=== PATIENT | female | born 1965 | race Caucasian/White ===

== ENCOUNTER 2017-12-31 19:17 | Emergency (ER) | payer OTHER ==
[2017-12-31] MEDS ORDERED: MORPHINE 4 MG/ML SYR ONE (19:58)
[2017-12-31] MEDS ORDERED: ONDANSETRON 4 MG (ODT) TAB ONE (19:58)
[2017-12-31 20:24] LABS: Hematocrit 40.2 % (36.0-45.0); MCV 88.9 fL (80-100); MPV 7.4 fL (7.6-11.3); RBC Red Blood Cell Count 4.53 M/uL (3.86-4.86)
[2017-12-31 20:37] LABS: Potassium 3.2 mEq/L (3.6-5.0)
--- NOTE | 2017-12-31 20:40 | RAD REPORT ---
EXAM DESCRIPTION: Lumbar Spine - Single View CLINICAL HISTORY: Radiculopathy COMPARISON: None. FINDINGS: Vertebral body heights appear maintained. No compression fracture noted. Facet arthrosis i s present at L4-5. Cholecystectomy clips seen. IMPRESSION: No acute findings seen.
--- NOTE | 2017-12-31 20:51 | RAD REPORT ---
EXAM DESCRIPTION: VAS - Extremity Venous Uni Ltd - 12/31/2017 8:43 pm CLINICAL HISTORY: Leg swelling and edema. COMPARISON: None. FINDINGS: Left lower extremity venous system was interrogated with Doppler technique. Normal flow, c ompressibility and augmentation was noted. There is no DVT present. IMPRESSION: No evidence of left lower extremity deep venous thrombosis.
--- NOTE | 2017-12-31 20:58 | ER ---
Nurse's Notes [facility] Name: Shelli Fonseca Age: 52 yrs Sex: Female : 1965 Arrival Date: 12/31/2017 Time: 19:19 Bed 4 Private MD: Oscar Gandara R Diagnosis: Fibromyalgia Presentation: 12/31 19:31 Presenting complaint: Patient states: I have been having left leg pain and swelling for la1 2-3 days and lower back pain on the right for the last 3 hours. Pt states "it feels more muscular but I am on a dilaudid pain pump and it's not even touching this pain". Transition of care: patient was not received from another setting of care. Onset of symptoms was December 31, 2017. Care prior to arrival: None. 19:31 Method Of Arrival: Ambulatory la1 19:31 Acuity: CLEVE 3 la1 Historical: - Allergies: 19:33 Codeine; la1 19:33 Sulfa (Sulfonamide Antibiotics); la1 - PMHx: 19:33 Hypothyroidism; Fibromyalgia; Hypertension; ulcertive colitis; RA; la1 - Immunization history:: Adult Immunizations up to date. - Social history:: Smoking status: Patient uses tobacco products, smokes one pack cigarettes per day. - Family history:: not pertinent. Screenin:07 Abuse screen: Denies threats or abuse. Denies injuries from another. Nutritional bp screening: No deficits noted. Tuberculosis screening: No symptoms or risk factors identified. Fall Risk None identified. Assessment: 20:02 General: Appears in no apparent distress. uncomfortable, Behavior is calm, cooperative, bp appropriate for age. Pain: Complains of pain in left leg. Neuro: Level of Consciousness is awake, alert, obeys commands, Oriented to person, place, time, situation, Appropriate for age. Cardiovascular: No deficits noted. Respiratory: Airway is patent Respiratory effort is even, unlabored, Respiratory pattern is regular, symmetrical. GI: No signs and/or symptoms were reported involving the gastrointestinal system. : No deficits noted. EENT: No deficits noted. Derm: No deficits noted. Musculoskeletal: Circulation, motion, and sensation intact. Range of motion: intact in all extremities. Vital Signs: 19:33 BP 165 / 90; Pulse 98; Resp 16; Temp 97.4; Pulse Ox 100% on R/A; Weight 86.18 kg; la1 Height 5 ft. 6 in. (167.64 cm); 20:15 BP 133 / 92; Pulse 78; Resp 18; Pulse Ox 98% on R/A; lp1 19:33 Body Mass Index 30.67 (86.18 kg, 167.64 cm) me1 ED Course: 19:19 Patient arrived in ED. am2 19:19 Oscar Gandara MD is Private Physician. am2 19:32 Triage completed. la1 19:33 Arm band placed on left wrist. la1 19:46 Radha Castano MD is Attending Physician. ma2 20:07 Patient has correct armband on for positive identification. Placed in gown. Bed in low bp position. Call light in reach. Side rails up X2. Adult w/ patient. 20:19 Patient moved to radiology via wheelchair. 1 20:21 Elen Dunaway, RN is Primary Nurse. lp1 20:21 X-ray completed. Patient tolerated procedure well. 1 20:21 Initial lab(s) drawn, by me, sent to lab. lp1 20:22 Patient taken to ultrasound. mh1 20:22 Lumbar Spine (1 view) XRAY In Process Unspecified. EDMS 20:41 Patient moved back from ultrasound. kl2 20:43 US Extremity Venous Uni Ltd In Process Unspecified. EDMS 21:04 No provider procedures requiring assistance completed. Patient did not have IV access lp1 during this emergency room visit. Administered Medications: 20:01 Drug: morphine 4 mg Route: IM; Site: right deltoid; bp 20:02 Drug: Zofran 4 mg Route: PO; bp Outcome: 20:57 Discharge ordered by . ma2 21:05 Discharged to home with family. lp1 21:05 Condition: good 21:05 Discharge instructions given to patient, Instructed on discharge instructions, follow up and referral plans. medication usage, Demonstrated understanding of instructions, follow-up care, medications, Prescriptions given X 1. 21:06 Patient left the ED. lp1 Signatures: Dispatcher [employer] EDMS Sabina Ferrari 1 Elen Dunaway, RN CHATO 1 Tato Neely RN RN me1 Alicia Manzanares 2 Lucas Brizuela RN RN Radha Castano MD MD md2 Lali, Samantha kl2
--- NOTE | 2017-12-31 20:58 | EDPHYS ---
Physician Documentation [facility] Name: Shelli Fonseca Age: 52 yrs Sex: Female : 1965 Arrival Date: 12/31/2017 Time: 19:19 Bed 4 Private MD: Oscar Gandara R ED Physician Radha Castano HPI: 12/31 20:21 This 52 yrs old Female presents to ER via Ambulatory with complaints of Leg ma2 Swelling, Back Pain. 20:21 The patient presents with pain that is chronic. The symptoms are located in the right ma2 mid back. Onset: The symptoms/episode began/occurred gradually, 2 day(s) ago. Associated signs and symptoms: Pertinent positives: left leg swelling. Severity of symptoms: At their worst the symptoms were moderate. The patient has experienced a previous episode. hx of left leg DVT 5 yrs ago off blood thinners now with 2 days left leg swelling and pain . Historical: - Allergies: 19:33 Codeine; la1 19:33 Sulfa (Sulfonamide Antibiotics); la1 - PMHx: 19:33 Hypothyroidism; Fibromyalgia; Hypertension; ulcertive colitis; RA; la1 - Immunization history:: Adult Immunizations up to date. - Social history:: Smoking status: Patient uses tobacco products, smokes one pack cigarettes per day. - Family history:: not pertinent. ROS: 20:21 Constitutional: Negative for fever, chills, and weight loss, Eyes: Negative for injury, ma2 pain, redness, and discharge, ENT: Negative for injury, pain, and discharge, Neck: Negative for injury, pain, and swelling, Cardiovascular: Negative for chest pain, palpitations, and edema, Respiratory: Negative for shortness of breath, cough, wheezing, and pleuritic chest pain, Abdomen/GI: Negative for abdominal pain, nausea, diarrhea, and constipation, Back: Negative for injury and pain, : Negative for injury, bleeding, discharge, and swelling, MS/Extremity: Negative for injury and deformity. 20:21 MS/extremity: Positive for swelling. 20:21 All other systems are negative. Exam: 20:21 Constitutional: This is a well developed, well nourished patient who is awake, alert, ma2 and in no acute distress. Head/Face: Normocephalic, atraumatic. Eyes: Pupils equal round and reactive to light, extra-ocular motions intact. Lids and lashes normal. Conjunctiva and sclera are non-icteric and not injected. Cornea within normal limits. Periorbital areas with no swelling, redness, or edema. Chest/axilla: Normal chest wall appearance and motion. Nontender with no deformity. No lesions are appreciated. Cardiovascular: Regular rate and rhythm with a normal S1 and S2. No gallops, murmurs, or rubs. Normal PMI, no JVD. No pulse deficits. Respiratory: Lungs have equal breath sounds bilaterally, clear to auscultation and percussion. No rales, rhonchi or wheezes noted. No increased work of breathing, no retractions or nasal flaring. Abdomen/GI: Soft, non-tender, with normal bowel sounds. No distension or tympany. No guarding or rebound. No evidence of tenderness throughout. Back: No spinal tenderness. No costovertebral tenderness. Full range of motion. MS/ Extremity: Pulses equal, no cyanosis. Neurovascular intact. Full, normal range of motion. Neuro: Awake and alert, GCS 15, oriented to person, place, time, and situation. Cranial nerves II-XII grossly intact. Motor strength 5/5 in all extremities. Sensory grossly intact. Cerebellar exam normal. Normal gait. Vital Signs: 19:33 BP 165 / 90; Pulse 98; Resp 16; Temp 97.4; Pulse Ox 100% on R/A; Weight 86.18 kg; la1 Height 5 ft. 6 in. (167.64 cm); 20:15 BP 133 / 92; Pulse 78; Resp 18; Pulse Ox 98% on R/A; lp1 19:33 Body Mass Index 30.67 (86.18 kg, 167.64 cm) la1 MDM: 19:47 Patient medically screened. ma2 20:21 Differential diagnosis: spinal injury, sprain, left leg DVT. ma2 20:56 Data reviewed: vital signs, nurses notes, EMS record, radiologic studies. Response to ma2 treatment: the patient's symptoms have markedly improved after treatment. 12/31 20:01 Order name: CBC w/o diff; Complete Time: 20:44 ma2 12/31 20:01 Order name: BMP; Complete Time: 20:44 ma2 12/31 20:01 Order name: Lumbar Spine (1 view) XRAY; Complete Time: 20:44 ma2 12/31 20:01 Order name: US Extremity Venous Uni Ltd ma2 Administered Medications: 20:01 Drug: morphine 4 mg Route: IM; Site: right deltoid; bp 20:02 Drug: Zofran 4 mg Route: PO; bp Disposition: 12/31/17 20:57 Discharged to Home. Impression: Fibromyalgia. - Condition is Stable. - Prescriptions for Valium 5 mg Oral Tablet - take 1 tablet by ORAL route every 8 hours As needed; 20 tablet. - Medication Reconciliation Form, Thank You Letter, Antibiotic Education, Prescription Opioid Use form. - Follow up: Private Physician; When: Tomorrow; Reason: Continuance of care. - Problem is new. - Symptoms are resolved. - Notes: you will need a repeated ultrasound in 1 week, follow up with your doctor Signatures: Dispatcher [employer] Elen Schulte RN RN lp1 Tato Neely RN RN la1 Lucas Brizuela RN RN Radha Goodman MD MD ma2
== END 2017-12-31 21:06 | disposition home or self-care (01) ==
LOC: ER 19:17
DX: M79.7 Fibromyalgia (principal); Z88.6 Allergy status to analgesic agent; Z88.2 Allergy status to sulfonamides
CPT/HCPCS: 36415; 72020; 80048; 85027; 93971; 96372; 99284

== ENCOUNTER 2020-03-03 01:21 | Emergency (ER) | payer OTHER ==
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
--- OUTSIDE RECORDS SUMMARY | 2020-03-03 01:23 | XMS REPORT | Continuity of Care Document ---
:1965 Author Organization [facility] t Address [address] [place] [address] Care Team Providers Name Role Phone Lizbeth Barnett Attending Clinician Problems This patient has no known problems. Allergies, Adverse Reactions, Alerts This patient has no known allergies or adverse reactions. Medications This patient has no known medications. Procedures This patient has no known procedures. Encounters Start End Encounter Admission Attending Care Care Encounter Source Date/Time Date/Time Type Type Clinicians Facility Department ID 2020-02-23 2020-02-23 Emergency Jax Dsouza [facility] [id number] 21:52:04 23:38:00 Lizbeth [place] [id number] [place] [id number] [place] [id number] Results This patient has no known results.
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
[2020-03-03] MEDS ORDERED: TRAMADOL HCL 50 MG TAB ONE (03:16)
[2020-03-03 03:31] VITALS: BP 127/78; TEMP 97.9; O2SAT 98
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
== END 2020-03-03 03:19 | disposition home or self-care (01) ==
LOC: ER 01:21
DX: S20.211A Contusion of right front wall of thorax, initial encounter (principal); R07.1 Chest pain on breathing; V89.2XXA Person injured in unspecified motor-vehicle accident, traffic, initial encounter; I10 Essential (primary) hypertension; E03.9 Hypothyroidism, unspecified; Z88.2 Allergy status to sulfonamides; Z88.5 Allergy status to narcotic agent; F17.210 Nicotine dependence, cigarettes, uncomplicated
CPT/HCPCS: 71045; 99284

== ENCOUNTER 2021-09-28 13:28 | Inpatient (IN) | payer OTHER ==
--- OUTSIDE RECORDS SUMMARY | 2021-09-28 13:32 | XMS REPORT | Continuity of Care Document ---
:1965 Author Organization [facility] t Address On license of [facility] [address] [place] [address] Care Team Providers Name Role Phone Travis ORITZ Primary Care Physician Unavailable Lab, Fam Pob I Attending Clinician Unavailable Ebrahim ADMINISTRATIVE DIRECTOR Attending Clinician EBRAHIM Attending Clinician Unavailable Sukhdeep Lozano Attending Clinician SUKHDEEP JUAN Attending Clinician Unavailable Doctor Unassigned, Name Attending Clinician Unavailable Poncho Espinosa MD Attending Clinician PONCHO ESPINOSA Attending Clinician Unavailable PONCHO ESPIONSA Attending Clinician Unavailable Ralph Valenzuela DO Attending Clinician Provider, Urgent Care Attending Clinician Unavailable Radha LARSON Attending Clinician RADHA Attending Clinician Unavailable Hardeep COSTELLO S Attending Clinician Kimberly MEIER Attending Clinician Unavailable Sosa MARTÍNEZ Attending Clinician Unavailable [facility] Attending Clinician Unavailable Yolis Chandler Attending Clinician Yolis LOPEZ Attending Clinician Unavailable NATHEN MATHEW Attending Clinician Unavailable Nathen Barnett Attending Clinician NATHEN MATEHW Admitting Clinician Unavailable Payers Payer Name Policy Type Policy Number Effective Date Expiration Date Kimberly gillette MEDICARE PART A [id number] 2006 \T\ B 00:00:00 Problems Condition Condition Condition Status Onset Resolution Last Treating Co mments Source Name Details Category Date Date Treatment Clinician Date No known No known Disease Unive rs active active ity of problems problems [facility] Allergies, Adverse Reactions, Alerts Allergy Allergy Status Severity Reaction(s) Onset Inactive Treating Comm ents Source Name Type Date Date Clinician Latex Drug Active Hives Univers Allergy -28 ity of 00:00: [place] 00 [facility] Branch LATEX DRUG Active Hives Univers INGREDI -28 ity of 00:00: [place] [facility] Codeine Drug Active Nausea Stomach Univers Allergy and/or 5-05 pain ity of Vomiting 00:00: [place] 00 Medical Branch CODEINE DRUG Active Other-Cmnt Unive rs INGREDI 5-05 ity of 00:00: [place] 00 Medical Branch SULFA Drug Active Other-Cmnt Univer s (SULFONA Class 5-05 ity of MIDE 00:00: [place] ANTIBIOT 00 Medical ICS) Branch Codeine Propensi Active Other - See 0 Stomach U nivers ty to comments 5-05 pain ity of adverse 00:00: [place] reaction 00 Medical s Branch Sulfa Propensi Active Rash 0 Stomach Univers (Sulfona ty to 5-05 pain ity of mide adverse 00:00: [place] Antibiot reaction 00 Medica l ics) s Branch Celecoxi Drug Active Rash 0 Univers b Allergy 1-16 ity of 00:00: [place] 00 Medical Branch CELECOXI DRUG Active Rash 2013-0 Univers B INGREDI 1-16 ity of 00:00: [place] 00 Medical Branch Social History Social Habit Start Date Stop Date Quantity Comments Source Exposure to Yes [facility] SARS-CoV-2 (event) Medica l Branch Tobacco use and 2021-01-21 2021-01-21 Never used [facility] exposure 00:00:00 00:00:00 Medical Branch Sex [birth year] [facility] y [facility] 00:00:00 00:00:00 Medical Branch Smoking Status Start Date Stop Date Source Unknown if ever smoked [facility] Current every day smoker 2021-01-21 00:00:00 [facility] Medications Ordered Filled Start Stop Current Ordering Indication Dosage Frequency Signature Comments Components Source Medication Medication Date Date Medication? Clinician (SIG) Name Name oxyCODONE Yes Take by Univ ers 15 mg TbOr 5-04 mouth. ity of 20:08: [place] [address] Medical Branch oxyCODONE Yes Take by Univ ers 15 mg TbOr 5-04 mouth. ity of 20:08: [place] [address] Medical Branch oxyCODONE Yes Take by Univ ers 15 mg TbOr 5-04 mouth. ity of 20:08: [place] [address] Medical Branch oxyCODONE Yes Take by Univ ers 15 mg TbOr 5-04 mouth. ity of 20:08: [address] Branch oxyCODONE Yes Take by Univ ers 15 mg TbOr 5-04 mouth. ity of 20:08: [address] Branch oxyCODONE Yes Take by Univ ers 15 mg TbOr 5-04 mouth. ity of 20:08: [address] Branch oxyCODONE Yes Take by Univ ers 15 mg TbOr 5-04 mouth. ity of 20:08: [address] Branch oxyCODONE Yes Take by Univ ers 15 mg TbOr 5-04 mouth. ity of 20:08: [address] oxyCODONE Yes Take by Univ ers 15 mg TbOr 5-04 mouth. ity of 20:08: [address] hydromorpho Yes Pain pump U nivers ne HCl 5-04 ity of (DILAUDID 19:45: [place] [facility]) [address] [place] [address] Branch hydromorpho Yes Pain pump U nivers ne HCl 5-04 ity of (DILAUDID 19:45: [facility]) [address] [place] [address] hydromorpho Yes Pain pump U nivers ne HCl 5-04 ity of (DILAUDID 19:45: [facility]) [address] [place] [address] hydromorpho Yes Pain pump U nivers ne HCl 5-04 ity of (DILAUDID 19:45: [place] [facility]) 11 Medical Branch hydromorpho Yes Pain pump U nivers ne HCl 5-04 ity of (DILAUDID 19:45: [place] [facility]) 11 Medical Branch hydromorpho Yes Pain pump U nivers ne HCl 5-04 ity of (DILAUDID 19:45: [place] [facility]) 11 Medical Branch hydromorpho Yes Pain pump U nivers ne HCl 5-04 ity of (DILAUDID 19:45: [facility]) 11 Medical Branch hydromorpho Yes Pain pump U nivers ne HCl 5-04 ity of (DILAUDID 19:45: [place] [facility]) 11 Medical Branch hydromorpho Yes Pain pump U nivers ne HCl 5-04 ity of (DILAUDID 19:45: [facility]) 11 Medical Branch azithromyci Yes [id number] 250mg Take 1 Univers n 250 mg 1-24 tablet by ity of tablet 00:00: mouth [place] 00 daily. Medical Take 500 Branch mg day 1, then 250 mg days 2 to 5. benzonatate Yes [id number] 100mg Take 1 Univers (TESSALON 1-24 capsule by ity of MARYSE) 100 00:00: mouth 3 [place] mg capsule 00 (three) Medica l times Branch daily as needed for Cough. albuterol Yes [id number] 2{puff} Inhale 2 Univers 90 1-24 Puffs ity of mcg/actuati 00:00: every 6 [place] as on inhaler 00 (six) Medical hours as Branch needed for Wheezing, Shortness of Breath or Chest tightness. diphenoxyla Yes [id number] 1{tbl} Take 1 Univers te-atropine 1-24 tablet by ity of 2.5-0.025 00:00: mouth [place] mg tablet 00 every 6 Medical (six) Branch hours as needed for Other (diarrhea) . azithromyci Yes [id number] 250mg Take 1 Univers n 250 mg 1-24 tablet by ity of tablet 00:00: mouth [place] 00 daily. Medical Take 500 Branch mg day 1, then 250 mg days 2 to 5. benzonatate Yes [id number] 100mg Take 1 Univers (TESSALON 1-24 capsule by ity of PERLES) 100 00:00: mouth 3 [place] mg capsule 00 (three) Medica l times Branch daily as needed for Cough. albuterol Yes [id number] 2{puff} Inhale 2 Univers 90 1-24 Puffs ity of mcg/actuati 00:00: every 6 [place] on inhaler 00 (six) Medical hours as Branch needed for Wheezing, Shortness of Breath or Chest tightness. diphenoxyla Yes [id number] 1{tbl} Take 1 Univers te-atropine 1-24 tablet by ity of 2.5-0.025 00:00: mouth [place] mg tablet 00 every 6 Medical (six) Branch hours as needed for Other (diarrhea) . azithromyci Yes [id number] 250mg Take 1 Univers n 250 mg 1-24 tablet by ity of tablet 00:00: mouth [place] 00 daily. Medical Take 500 Branch mg day 1, then 250 mg days 2 to 5. benzonatate Yes [id number] 100mg Take 1 Univers (TESSALON 1-24 capsule by ity of PERLPassbox) 100 00:00: mouth 3 [place] mg capsule 00 (three) Medica l times Branch daily as needed for Cough. albuterol Yes [id number] 2{puff} Inhale 2 Univers 90 1-24 Puffs ity of mcg/actuati 00:00: every 6 [place] on inhaler 00 (six) Medical hours as Branch needed for Wheezing, Shortness of Breath or Chest tightness. diphenoxyla Yes [id number] 1{tbl} Take 1 Univers te-atropine 1-24 tablet by ity of 2.5-0.025 00:00: mouth [place] mg tablet 00 every 6 Medical (six) Branch hours as needed for Other (diarrhea) . azithromyci 0 Yes [id number] 250mg Take 1 Univers n 250 mg 1-24 tablet by ity of tablet 00:00: mouth [place] 00 daily. Medical Take 500 Branch mg day 1, then 250 mg days 2 to 5. benzonatate 0 Yes [id number] 100mg Take 1 Univers (TESSALON 1-24 capsule by ity of PERLES) 100 00:00: mouth 3 [place] mg capsule 00 (three) Medica l times Branch daily as needed for Cough. albuterol Yes [id number] 2{puff} Inhale 2 Univers 90 1-24 Puffs ity of mcg/actuati 00:00: every 6 [place] on inhaler 00 (six) Medical hours as Branch needed for Wheezing, Shortness of Breath or Chest tightness. diphenoxyla Yes [id number] 1{tbl} Take 1 Univers te-atropine 1-24 tablet by ity of 2.5-0.025 00:00: mouth [place] mg tablet 00 every 6 Medical (six) Branch hours as needed for Other (diarrhea) . azithromyci Yes [id number] 250mg Take 1 Univers n 250 mg 1-24 tablet by ity of tablet 00:00: mouth [place] 00 daily. Medical Take 500 Branch mg day 1, then 250 mg days 2 to 5. benzonatate Yes [id number] 100mg Take 1 Univers (TESSALON 1-24 capsule by ity of PERLPassbox) 100 00:00: mouth 3 [place] mg capsule 00 (three) Medica l times Branch daily as needed for Cough. albuterol Yes [id number] 2{puff} Inhale 2 Univers 90 1-24 Puffs ity of mcg/actuati 00:00: every 6 [place] on inhaler 00 (six) Medical hours as Branch needed for Wheezing, Shortness of Breath or Chest tightness. diphenoxyla Yes [id number] 1{tbl} Take 1 Univers te-atropine 1-24 tablet by ity of 2.5-0.025 00:00: mouth [place] mg tablet 00 every 6 Medical (six) Branch hours as needed for Other (diarrhea) . azithromyci 0 Yes [id number] 250mg Take 1 Univers n 250 mg 1-24 tablet by ity of tablet 00:00: mouth [place] 00 daily. Medical Take 500 Branch mg day 1, then 250 mg days 2 to 5. benzonatate 0 Yes [id number] 100mg Take 1 Univers (TESSALON 1-24 capsule by ity of PERLES) 100 00:00: mouth 3 [place] mg capsule 00 (three) Medica l times Branch daily as needed for Cough. albuterol Yes [id number] 2{puff} Inhale 2 Univers 90 1-24 Puffs ity of mcg/actuati 00:00: every 6 [place] on inhaler 00 (six) Medical hours as Branch needed for Wheezing, Shortness of Breath or Chest tightness. diphenoxyla Yes [id number] 1{tbl} Take 1 Univers te-atropine 1-24 tablet by ity of 2.5-0.025 00:00: mouth [place] mg tablet 00 every 6 Medical (six) Branch hours as needed for Other (diarrhea) . azithromyci Yes [id number] 250mg Take 1 Univers n 250 mg 1-24 tablet by ity of tablet 00:00: mouth [place] 00 daily. Medical Take 500 Branch mg day 1, then 250 mg days 2 to 5. benzonatate Yes [id number] 100mg Take 1 Univers (TESSALON 1-24 capsule by ity of PERLES) 100 00:00: mouth 3 [place] mg capsule 00 (three) Medica l times Branch daily as needed for Cough. albuterol Yes [id number] 2{puff} Inhale 2 Univers 90 1-24 Puffs ity of mcg/actuati 00:00: every 6 [place] on inhaler 00 (six) Medical hours as Branch needed for Wheezing, Shortness of Breath or Chest tightness. diphenoxyla Yes [id number] 1{tbl} Take 1 Univers te-atropine 1-24 tablet by ity of 2.5-0.025 00:00: mouth [place] mg tablet 00 every 6 Medical (six) Branch hours as needed for Other (diarrhea) . azithromyci 0 Yes [id number] 250mg Take 1 Univers n 250 mg 1-24 tablet by ity of tablet 00:00: mouth [place] 00 daily. Medical Take 500 Branch mg day 1, then 250 mg days 2 to 5. benzonatate 0 Yes [id number] 100mg Take 1 Univers (TESSALON 1-24 capsule by ity of PERLES) 100 00:00: mouth 3 [place] mg capsule 00 (three) Medica l times Branch daily as needed for Cough. albuterol Yes [id number] 2{puff} Inhale 2 Univers 90 1-24 Puffs ity of mcg/actuati 00:00: every 6 [place] as on inhaler 00 (six) Medical hours as Branch needed for Wheezing, Shortness of Breath or Chest tightness. diphenoxyla Yes [id number] 1{tbl} Take 1 Univers te-atropine 1-24 tablet by ity of 2.5-0.025 00:00: mouth [place] mg tablet 00 every 6 Medical (six) Branch hours as needed for Other (diarrhea) . azithromyci Yes [id number] 250mg Take 1 Univers n 250 mg 1-24 tablet by ity of tablet 00:00: mouth [place] 00 daily. Medical Take 500 Branch mg day 1, then 250 mg days 2 to 5. benzonatate Yes [id number] 100mg Take 1 Univers (TESSALON 1-24 capsule by ity of PERLES) 100 00:00: mouth 3 [place] mg capsule 00 (three) Medica l times Branch daily as needed for Cough. albuterol Yes [id number] 2{puff} Inhale 2 Univers 90 1-24 Puffs ity of mcg/actuati 00:00: every 6 [place] as on inhaler 00 (six) Medical hours as Branch needed for Wheezing, Shortness of Breath or Chest tightness. diphenoxyla Yes [id number] 1{tbl} Take 1 Univers te-atropine 1-24 tablet by ity of 2.5-0.025 00:00: mouth [place] mg tablet 00 every 6 Medical (six) Branch hours as needed for Other (diarrhea) . azithromyci Yes [id number] 250mg Take 1 Univers n 250 mg 1-24 tablet by ity of tablet 00:00: mouth [place] 00 daily. Medical Take 500 Branch mg day 1, then 250 mg days 2 to 5. benzonatate Yes [id number] 100mg Take 1 Univers (TESSALON 1-24 capsule by ity of PERLES) 100 00:00: mouth 3 [place] mg capsule 00 (three) Medica l times Branch daily as needed for Cough. albuterol Yes [id number] 2{puff} Inhale 2 Univers 90 1-24 Puffs ity of mcg/actuati 00:00: every 6 [place] on inhaler 00 (six) Medical hours as Branch needed for Wheezing, Shortness of Breath or Chest tightness. diphenoxyla Yes [id number] 1{tbl} Take 1 Univers te-atropine 1-24 tablet by ity of 2.5-0.025 00:00: mouth [place] mg tablet 00 every 6 Medical (six) Branch hours as needed for Other (diarrhea) . azithromyci Yes [id number] 250mg Take 1 Univers n 250 mg 1-24 tablet by ity of tablet 00:00: mouth [place] 00 daily. Medical Take 500 Branch mg day 1, then 250 mg days 2 to 5. benzonatate Yes [id number] 100mg Take 1 Univers (TESSALON 1-24 capsule by ity of MARYSE) 100 00:00: mouth 3 [place] mg capsule 00 (three) Medica l times Branch daily as needed for Cough. albuterol Yes [id number] 2{puff} Inhale 2 Univers 90 1-24 Puffs ity of mcg/actuati 00:00: every 6 [place] on inhaler 00 (six) Medical hours as Branch needed for Wheezing, Shortness of Breath or Chest tightness. diphenoxyla Yes [id number] 1{tbl} Take 1 Univers te-atropine 1-24 tablet by ity of 2.5-0.025 00:00: mouth [place] mg tablet 00 every 6 Medical (six) Branch hours as needed for Other (diarrhea) . losartan 50 0 Yes 100mg Take 100 U nivers mg tablet 6-26 mg by ity of 14:52: mouth [place] 41 daily. Medical Branch losartan 50 2019-0 Yes 100mg Take 100 U nivers mg tablet 6-26 mg by ity of 14:52: mouth [place] 41 daily. Medical Branch losartan 50 2019-0 Yes 100mg Take 100 U nivers mg tablet 6-26 mg by ity of 14:52: mouth [place] 41 daily. Medical Branch losartan 50 2019-0 Yes 100mg Take 100 U nivers mg tablet 6-26 mg by ity of 14:52: mouth [place] 41 daily. Medical Branch losartan 50 2019-0 Yes 100mg Take 100 U nivers mg tablet 6-26 mg by ity of 14:52: mouth [place] 41 daily. Medical Branch losartan 50 2020-0 Yes 100mg Take 100 U nivers mg tablet 6-26 mg by ity of 14:52: mouth [place] 41 daily. Medical Branch losartan 50 2020-0 Yes 100mg Take 100 U nivers mg tablet 6-26 mg by ity of 14:52: mouth [place] 41 daily. Medical Branch losartan 50 2020-0 Yes 100mg Take 100 U nivers mg tablet 6-26 mg by ity of 14:52: mouth [place] 41 daily. Medical Branch losartan 50 2020-0 Yes 100mg Take 100 U nivers mg tablet 6-26 mg by ity of 14:52: mouth [place] 41 daily. Medical Branch losartan 50 2020-0 Yes 100mg Take 100 U nivers mg tablet 6-26 mg by ity of 14:52: mouth [place] 41 daily. Medical Branch losartan 50 2020-0 Yes 100mg Take 100 U nivers mg tablet 6-26 mg by ity of 14:52: mouth [place] 41 daily. Medical Branch losartan 50 2020-0 Yes 100mg Take 100 U nivers mg tablet 6-26 mg by ity of 14:52: mouth [place] 41 daily. Medical Branch losartan 50 2020-0 Yes 100mg Take 100 U nivers mg tablet 6-26 mg by ity of 14:52: mouth [place] 41 daily. Medical Branch losartan 50 2020-0 Yes 100mg Take 100 U nivers mg tablet 6-26 mg by ity of 14:52: mouth [place] 41 daily. Medical Branch methylPREDN 2020-0 Yes [id number] 84mg Take 21 Univers ISolone 6-26 tablets by ity of (MEDROL, 00:00: mouth [place] JOHNNA,) 4 mg 00 SEE-INSTRU Med ical tablets CTIONS. Branch follow package directions methylPREDN 2020-0 Yes [id number] 84mg Take 21 Univers ISolone 6-26 tablets by ity of (MEDROL, 00:00: mouth [place] JOHNNA,) 4 mg 00 SEE-INSTRU Med ical tablets CTIONS. Branch follow package directions methylPREDN 2020-0 Yes [id number] 84mg Take 21 Univers ISolone 6-26 tablets by ity of (MEDROL, 00:00: mouth [place] JOHNNA,) 4 mg 00 SEE-INSTRU Med ical tablets CTIONS. Branch follow package directions methylPREDN 2020-0 Yes [id number] 84mg Take 21 Univers ISolone 6-26 tablets by ity of (MEDROL, 00:00: mouth [place] JOHNNA,) 4 mg 00 SEE-INSTRU Med ical tablets CTIONS. Branch follow package directions methylPREDN 2020-0 Yes [id number] 84mg Take 21 Univers ISolone 6-26 tablets by ity of (MEDROL, 00:00: mouth [place] JOHNNA,) 4 mg 00 SEE-INSTRU Med ical tablets CTIONS. Branch follow package directions methylPREDN 2020-0 Yes [id number] 84mg Take 21 Univers ISolone 6-26 tablets by ity of (MEDROL, 00:00: mouth [place] JOHNNA,) 4 mg 00 SEE-INSTRU Med ical tablets CTIONS. Branch follow package directions methylPREDN 2020-0 Yes [id number] 84mg Take 21 Univers ISolone 6-26 tablets by ity of (MEDROL, 00:00: mouth [place] JOHNNA,) 4 mg 00 SEE-INSTRU Med ical tablets CTIONS. Branch follow package directions methylPREDN 2020-0 Yes [id number] 84mg Take 21 Univers ISolone 6-26 tablets by ity of (MEDROL, 00:00: mouth [place] JOHNNA,) 4 mg 00 SEE-INSTRU Med ical tablets CTIONS. Branch follow package directions methylPREDN 2020-0 Yes [id number] 84mg Take 21 Univers ISolone 6-26 tablets by ity of (MEDROL, 00:00: mouth [place] JOHNNA,) 4 mg 00 SEE-INSTRU Med ical tablets CTIONS. Branch follow package directions methylPREDN 2020-0 Yes [id number] 84mg Take 21 Univers ISolone 6-26 tablets by ity of (MEDROL, 00:00: mouth [place] JOHNNA,) 4 mg 00 SEE-INSTRU Med ical tablets CTIONS. Branch follow package directions methylPREDN 2020-0 Yes [id number] 84mg Take 21 Univers ISolone 6-26 tablets by ity of (MEDROL, 00:00: mouth [place] JOHNNA,) 4 mg 00 SEE-INSTRU Med ical tablets CTIONS. Branch follow package directions methylPREDN 2020-0 Yes [id number] 84mg Take 21 Univers ISolone 6-26 tablets by ity of (MEDROL, 00:00: mouth [place] JOHNNA,) 4 mg 00 SEE-INSTRU Med ical tablets CTIONS. Branch follow package directions methylPREDN 2020-0 Yes [id number] 84mg Take 21 Univers ISolone 6-26 tablets by ity of (MEDROL, 00:00: mouth [place] JOHNNA,) 4 mg 00 SEE-INSTRU Med ical tablets CTIONS. Branch follow package directions methylPREDN 2020-0 Yes [id number] 84mg Take 21 Univers ISolone 6-26 tablets by ity of (MEDROL, 00:00: mouth [place] JOHNNA,) 4 mg 00 SEE-INSTRU Med ical tablets CTIONS. Branch follow package directions tiZANidine 2020-0 Yes 4mg Take 4 mg Un shira 4 mg tablet 6-19 by mouth 3 it y of 15:17: (three) [place] [address] times Medical daily. Branch topiramate 2020-0 Yes 200mg Take 200 Un shira (TOPAMAX) 6-19 mg by ity of 200 mg 15:17: mouth 2 [place] tablet 03 (two) Medical times Branch daily. oxyCODONE 2020-0 Yes Take by Univ ers 15 mg TbOr 6-19 mouth. ity of 15:17: [place] [address] Medical Branch SERTraline 2020-0 Yes 100mg Take 100 Un shira 100 mg 6-19 mg by ity of tablet 15:17: mouth 2 [place] 03 (two) Medical times Branch daily. Levothyroxi 2020-0 Yes Take by Un shira ne 125 mcg 6-19 mouth. ity of capsule 15:17: [place] [address] Medical Branch gabapentin 2020-0 Yes 800mg Take 800 Un shira 800 mg 6-19 mg by ity of tablet 15:17: mouth 3 [place] (three) Medical times Branch daily. tiZANidine 2020-0 Yes 4mg Take 4 mg Un shira 4 mg tablet 6-19 by mouth 3 it y of 15:17: (three) [place] [address] times Medical daily. Branch topiramate 2020-0 Yes 200mg Take 200 Un shira (TOPAMAX) 6-19 mg by ity of 200 mg 15:17: mouth 2 [place] tablet 03 (two) Medical times Branch daily. oxyCODONE 2020-0 Yes Take by Univ ers 15 mg TbOr 6-19 mouth. ity of 15:17: [place] [address] Medical Branch SERTraline 2020-0 Yes 100mg Take 100 Un shira 100 mg 6-19 mg by ity of tablet 15:17: mouth 2 [place] 03 (two) Medical times Branch daily. Levothyroxi 2020-0 Yes Take by Un shira ne 125 mcg 6-19 mouth. ity of capsule 15:17: [place] [address] Medical Branch gabapentin 2020-0 Yes 800mg Take 800 Un shira 800 mg 6-19 mg by ity of tablet 15:17: mouth 3 [place] 03 (three) Medical times Branch daily. tiZANidine 2020-0 Yes 4mg Take 4 mg Un shira 4 mg tablet 6-19 by mouth 3 it y of 15:17: (three) [place] [address] times Medical daily. Branch topiramate 2020-0 Yes 200mg Take 200 Un shira (TOPAMAX) 6-19 mg by ity of 200 mg 15:17: mouth 2 [place] tablet 03 (two) Medical times Branch daily. oxyCODONE 2020-0 Yes Take by Univ ers 15 mg TbOr 6-19 mouth. ity of 15:17: [place] [address] Medical Branch SERTraline 2020-0 Yes 100mg Take 100 Un shira 100 mg 6-19 mg by ity of tablet 15:17: mouth 2 [place] [address] (two) Medical times Branch daily. Levothyroxi 2020-0 Yes Take by Un shira ne 125 mcg 6-19 mouth. ity of capsule 15:17: [place] [address] Medical Branch gabapentin 2020-0 Yes 800mg Take 800 Un shira 800 mg 6-19 mg by ity of tablet 15:17: mouth 3 [place] [address] (three) Medical times Branch daily. tiZANidine 2020-0 Yes 4mg Take 4 mg Un [place]ira 4 mg tablet 6-19 by mouth 3 it y of 15:17: (three) [place] [address] times Medical daily. Branch topiramate 2020-0 Yes 200mg Take 200 Un shira (TOPAMAX) 6-19 mg by ity of 200 mg 15:17: mouth 2 [place] tablet 03 (two) Medical times Branch daily. oxyCODONE 2020-0 Yes Take by Univ ers 15 mg TbOr 6-19 mouth. ity of 15:17: [place] [address] Medical Branch SERTraline 2020-0 Yes 100mg Take 100 Un shira 100 mg 6-19 mg by ity of tablet 15:17: mouth 2 [place] 03 (two) Medical times Branch daily. Levothyroxi 2020-0 Yes Take by Un shira ne 125 mcg 6-19 mouth. ity of capsule 15:17: [place] [address] Medical Branch gabapentin 2020-0 Yes 800mg Take 800 Un shira 800 mg 6-19 mg by ity of tablet 15:17: mouth 3 [place] (three) Medical times Branch daily. tiZANidine 2020-0 Yes 4mg Take 4 mg Un [place]ira 4 mg tablet 6-19 by mouth 3 it y of 15:17: (three) [place] [address] times Medical daily. Branch topiramate 2020-0 Yes 200mg Take 200 Un shira (TOPAMAX) 6-19 mg by ity of 200 mg 15:17: mouth 2 [place] tablet 03 (two) Medical times Branch daily. SERTraline 2020-0 Yes 100mg Take 100 Un [place]ira 100 mg 6-19 mg by ity of tablet 15:17: mouth 2 [place] (two) Medical times Branch daily. Levothyroxi 2020-0 Yes Take by Un shira ne 125 mcg 6-19 mouth. ity of capsule 15:17: [place] Medical Branch gabapentin 2020-0 Yes 800mg Take 800 Un [place]ira 800 mg 6-19 mg by ity of tablet 15:17: mouth 3 [place] (three) Medical times Branch daily. tiZANidine 2020-0 Yes 4mg Take 4 mg Un [place]ira 4 mg tablet 6-19 by mouth 3 it y of 15:17: (three) [place] [address] times Medical daily. Branch topiramate 2020-0 Yes 200mg Take 200 Un shira (TOPAMAX) 6-19 mg by ity of 200 mg 15:17: mouth 2 [place] tablet 03 (two) Medical times Branch daily. SERTraline 2020-0 Yes 100mg Take 100 Un [place]ira 100 mg 6-19 mg by ity of tablet 15:17: mouth 2 [place] (two) Medical times Branch daily. Levothyroxi 2020-0 Yes Take by Un shira ne 125 mcg 6-19 mouth. ity of capsule 15:17: [place] Medical Branch gabapentin 2020-0 Yes 800mg Take 800 Un [place]ira 800 mg 6-19 mg by ity of tablet 15:17: mouth 3 [place] (three) Medical times Branch daily. tiZANidine 2020-0 Yes 4mg Take 4 mg Un [place]ira 4 mg tablet 6-19 by mouth 3 it y of 15:17: (three) [place] [address] times Medical daily. Branch topiramate 2020-0 Yes 200mg Take 200 Un shira (TOPAMAX) 6-19 mg by ity of 200 mg 15:17: mouth 2 [place] tablet 03 (two) Medical times Branch daily. SERTraline 2020-0 Yes 100mg Take 100 Un [place]ira 100 mg 6-19 mg by ity of tablet 15:17: mouth 2 [place] 03 (two) Medical times Branch daily. Levothyroxi 2020-0 Yes Take by Un shira ne 125 mcg 6-19 mouth. ity of capsule 15:17: [place] Medical Branch gabapentin 2020-0 Yes 800mg Take 800 Un shira 800 mg 6-19 mg by ity of tablet 15:17: mouth 3 [place] 03 (three) Medical times Branch daily. tiZANidine 2020-0 Yes 4mg Take 4 mg Un [place]ira 4 mg tablet 6-19 by mouth 3 it y of 15:17: (three) [place] 03 times Medical daily. Branch topiramate 2020-0 Yes 200mg Take 200 Un [place]ira (TOPAMAX) 6-19 mg by ity of 200 mg 15:17: mouth 2 [place] tablet 03 (two) Medical times Branch daily. SERTraline 2020-0 Yes 100mg Take 100 Un [place] 100 mg 6-19 mg by ity of tablet 15:17: mouth 2 [place] (two) Medical times Branch daily. Levothyroxi 2020-0 Yes Take by Un shira ne 125 mcg 6-19 mouth. ity of capsule 15:17: [place] Medical Branch gabapentin 2020-0 Yes 800mg Take 800 Un shira 800 mg 6-19 mg by ity of tablet 15:17: mouth 3 [place] (three) Medical times Branch daily. tiZANidine 2020-0 Yes 4mg Take 4 mg Un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
[2021-09-28] MEDS ORDERED: NA CHLORIDE 0.9% 1,000 ML ONE (13:56)
[2021-09-28 14:21] LABS: Absolute Lymphocytes (CBC) 2.6 K/uL (0.7-4.9); Hematocrit 41.4 % (36.0-45.0); MPV 7.6 fL (7.6-11.3); RBC Red Blood Cell Count 4.55 M/uL (3.86-4.86)
[2021-09-28 14:24] LABS: Protime INR 0.89
--- NOTE | 2021-09-28 14:34 | RAD REPORT ---
EXAM DESCRIPTION: CT - Ct Stroke Brain Wo Cont - 09/28/2021 2:20 pm CLINICAL HISTORY: Confusion/alteration of awareness/slurred speech COMPARISON: none TECHNIQUE: Computed axial tomography of the head was obtained. All CT scans are performed using dose optimization technique as appropriate and may include automated exposure control or mA/KV adjustment according to patient size. FINDINGS: An intracranial bleed is not seen . The ventricles are normal in caliber. No extra-axial fluid collection is noted. A 9 millimeter low-density area deep white matter posterior left frontal lobe Fluid within the sinuses/ mastoids is not seen. IMPRESSION: A 9 millimeter low-density area deep white matter posterior left frontal lobe probably a n infarct. The age is indeterminate. Dr Castano of the emergency room was notified at 2:29 p.m. September 28, 2021
[2021-09-28 14:52] LABS: ALT/SGPT 23 U/L (12-78); Albumin 3.8 g/dL (3.4-5.0); Alkaline Phosphatase 104 U/L (45-117); BUN Blood Urea Nitrogen 17 mg/dL (7-18); Bicarbonate 25 mmol/L (21-32); Bilirubin Direct < 0.1 mg/dL (0-0.2); Bilirubin Total 0.3 mg/dL (0.2-1.0); Creatine Phosphokinase 87 U/L (26-192); Glucose Level 114 mg/dL (74-106); Lipase 120 U/L (73-393); Protein, Total 8.6 g/dL (6.4-8.2); Sodium Level 140 mmol/L (136-145); Troponin (Emerg Dept Use Only) < 0.02 ng/mL (0.0-0.045)
[2021-09-28] MEDS ORDERED: ASPIRIN EC 325 MG TABLET PO ONE (14:54)
--- NOTE | 2021-09-28 14:55 | EDPHYS ---
Physician Documentation [facility] Name: Shelli Fonseca Age: 56 yrs Sex: Female : 1965 Arrival Date: 09/28/2021 Time: 13:28 Bed 4 Private MD: ED Physician Radha Castano HPI: 09/28 14:06 This 56 yrs old Female presents to ER via Wheelchair with complaints of Numbness Of ma2 Arm, Numbness Of Face, Headache. 14:06 The patient or guardian complains of weakness. The complaints affect the right bicep ma2 and dorsal aspect of right forearm. Onset: The symptoms/episode began/occurred gradually, 14 day(s) ago. Associated signs and symptoms: Pertinent positives: Pertinent negatives: erythema, numbness, swelling, vomiting, warmth. Severity of symptoms: At their worst the symptoms were mild, in the emergency department the symptoms are unchanged. The patient has not experienced similar symptoms in the past. Patient has history of fibromyalgia myalgia, rheumatoid arthritis, chronic headache on Dilaudid pump, patient here with right upper extremity weakness for 2 weeks on and off, no other symptoms at this time.. Historical: - Allergies: 13:36 Codeine; ww 13:36 Sulfa (Sulfonamide Antibiotics); ww - PMHx: 13:36 Fibromyalgia; Hypertension; RA; ulcertive colitis; Hypothyroidism; skin cancer; ww - Immunization history:: Client reports having NOT received the Covid vaccine. Flu vaccine is not up to date. - Social history:: Smoking status: Patient reports the use of cigarette tobacco products, smokes one pack cigarettes per day. Patient/guardian denies using alcohol, street drugs, The patient lives with family. - Family history:: not pertinent. ROS: 14:06 Constitutional: Negative for fever, chills, and weight loss. ma2 14:06 All other systems are negative. Exam: 14:06 Constitutional: This is a well developed, well nourished patient who is awake, alert, ma2 and in no acute distress. Head/Face: Normocephalic, atraumatic. Eyes: Pupils equal round and reactive to light, extra-ocular motions intact. Lids and lashes normal. Conjunctiva and sclera are non-icteric and not injected. Cornea within normal limits. Periorbital areas with no swelling, redness, or edema. ENT: Nares patent. No nasal discharge, no septal abnormalities noted. Tympanic membranes are normal and external auditory canals are clear. Oropharynx with no redness, swelling, or masses, exudates, or evidence of obstruction, uvula midline. Mucous membranes moist. Neck: Trachea midline, no thyromegaly or masses palpated, and no cervical lymphadenopathy. Supple, full range of motion without nuchal rigidity, or vertebral point tenderness. No Meningismus. Chest/axilla: Normal chest wall appearance and motion. Nontender with no deformity. No lesions are appreciated. Cardiovascular: Regular rate and rhythm with a normal S1 and S2. No gallops, murmurs, or rubs. Normal PMI, no JVD. No pulse deficits. Respiratory: Lungs have equal breath sounds bilaterally, clear to auscultation and percussion. No rales, rhonchi or wheezes noted. No increased work of breathing, no retractions or nasal flaring. Abdomen/GI: Soft, non-tender, with normal bowel sounds. No distension or tympany. No guarding or rebound. No evidence of tenderness throughout. Skin: Warm, dry with normal turgor. Normal color with no rashes, no lesions, and no evidence of cellulitis. MS/ Extremity: Pulses equal, no cyanosis. Neurovascular intact. Full, normal range of motion. Neuro: Awake and alert, GCS 15, oriented to person, place, time, and situation. Cranial nerves II-XII grossly intact. Motor strength is 3 out of 5 in right hand international recruiter, and elbow flexion, however motor strength is 5/5 in all other 3 extremities. Sensory grossly intact. Cerebellar exam normal. Normal gait. Vital Signs: 13:39 BP 164 / 96; Pulse 84; Resp 18; Temp 98.9; Pulse Ox 100% on R/A; Weight 86.18 kg; ww Height 5 ft. 6 in. (167.64 cm); Pain 0/10; 14:44 BP 152 / 76; Pulse 60; Resp 11; Pulse Ox 98% on R/A; tw2 15:30 BP 153 / 101; Pulse 60; Resp 17; Pulse Ox 99% on R/A; tw2 16:39 BP 100 / 73; Pulse 60; Resp 15; Pulse Ox 100% on R/A; tw2 17:41 BP 144 / 74; Pulse 51; Resp 17; Pulse Ox 98% on R/A; tw2 19:00 BP 132 / 78; Pulse 44; Resp 18; Pulse Ox 99% ; sm5 20:00 BP 143 / 73; Pulse 45; Resp 18; Pulse Ox 99% ; sm5 21:00 BP 150 / 90; Pulse 75; Resp 16; Pulse Ox 100% ; sm5 13:39 Body Mass Index 30.67 (86.18 kg, 167.64 cm) ww MDM: 13:41 Patient medically screened. ma2 14:51 Differential diagnosis: CTh shows possible ischemic stroke, discussed with Dr. kiran Abdul, patient is not a tPA candidate as right upper extremity weakness has been there for 2 weeks on and off and been constant since Wednesday night, that is 48 hours ago, risk of tPA outweigh benefits at this time. Dr. Abdul neurologist recommend aspirin Plavix, and admit to the hospital. He will see her. Data reviewed: vital signs, nurses notes, EMS record. Counseling: I had a detailed discussion with the patient and/or guardian regarding: the historical points, exam findings, and any diagnostic results supporting the discharge/admit diagnosis, the presence of at least one elevated blood pressure reading (>120/80) during this emergency department visit, lab results, radiology results, the need for outpatient follow up. Medical screen evaluation completed. EMTALA emergency medical condition absent. Response to treatment: the patient's symptoms have markedly improved after treatment. 09/28 13:50 Order name: Basic Metabolic Panel [facility] 09/28 13:50 Order name: CBC with Diff 09/28 13:50 Order name: CPK [facility] 09/28 13:50 Order name: Hepatic Function [facility] 09/28 13:50 Order name: Lipase; Complete Time: 15:00 [facility] 09/28 13:50 Order name: Magnesium; Complete Time: 15:00 [facility] 09/28 13:50 Order name: Protime (+inr); Complete Time: 14:49 [facility] 09/28 13:50 Order name: Ptt, Activated; Complete Time: 14:49 [facility] 09/28 13:50 Order name: Troponin (emerg Dept Use Only); Complete Time: 15:00 [facility] 09/28 13:50 Order name: UDS [facility] 09/28 13:51 Order name: Basic Metabolic Panel; Complete Time: 15:00 EDMS 09/28 13:51 Order name: Creatine Phosphokinase; Complete Time: 15:00 EDMS 09/28 13:51 Order name: CBC with Automated Diff; Complete Time: 14:49 EDMS 09/28 13:51 Order name: Liver (Hepatic) Function; Complete Time: 15:00 EDMS 09/28 13:51 Order name: CT Stroke Brain w/o Contrast; Complete Time: 14:49 ne2 09/28 13:51 Order name: EKG; Complete Time: 13:51 ne2 09/28 13:51 Order name: Accucheck; Complete Time: 13:53 ne2 09/28 14:02 Order name: Glucose, Ancillary Testing; Complete Time: 14:49 EDMS 09/28 14:49 Order name: SARS-COV-2 RT PCR (Document "Date of Onset" if Symptomatic) ne2 09/28 15:00 Order name: CT Head Angio ne2 09/28 15:00 Order name: CT Neck Angio ne2 09/28 16:14 Order name: RAD EDMS 09/28 16:47 Order name: CT EDMS 09/28 16:50 Order name: CT EDMS 09/28 13:51 Order name: Cardiac monitoring; Complete Time: 14:04 ne2 09/28 13:51 Order name: EKG - Nurse/Tech; Complete Time: 14:04 ne2 09/28 13:51 Order name: IV Saline Lock; Complete Time: 14:04 ne2 09/28 13:51 Order name: Labs collected and sent; Complete Time: 14:05 ne2 09/28 13:51 Order name: NPO; Complete Time: 14:05 ne2 09/28 13:51 Order name: O2 Per Protocol; Complete Time: 14:05 ne2 09/28 13:51 Order name: O2 Sat Monitoring; Complete Time: 14:05 ne2 09/28 13:51 Order name: Stroke Swallow Screen; Complete Time: 14:05 ma2 Administered Medications: 14:04 Drug: NS 0.9% 1000 ml Route: IV; Rate: 1 bolus; Site: left antecubital; tw2 14:56 Not Given (Patient Refused): Aspirin 325 mg PO once appiah 16:03 Drug: Ketorolac 30 mg Route: IVP; Site: right antecubital; appiah 16:03 Follow up: Response: No adverse reaction appiah 16:51 CANCELLED ( changed orderr): PlaVIX (clopidogrel) 600 mg PO once tw2 17:04 Drug: PlaVIX (clopidogrel) 300 mg Route: PO; tw2 18:19 Follow up: Response: No adverse reaction appiah Disposition Summary: 09/28/21 14:55 Hospitalization Ordered Hospitalization Status: Inpatient Admission ne2 Provider: Grayson Donohue [facility] Condition: Fair [facility] Problem: new ma Symptoms: are unchanged [facility] Bed/Room Type: Standard [facility] Location: Telemetry/MedSurg (Inpatient)(09/28/21 20:43) Room Assignment: [facility](09/28/21 20:43) Diagnosis - Cerebral ischemia - stroke with right upper extremty weakness [facility] Forms: - Medication Reconciliation Form ma2 - SBAR form ne2 Signatures: Dispatcher [employer] EDSierra Perry, CHATO REIS Zoya Arthur RN RN [facility] Radha Castano MD MD [facility] Della Georges [facility] Maris Ashford RN CHATO Nina-Elena Muniz RN RN Corrections: (The following items were deleted from the chart) 14:44 13:51 Chest Single View+RAD.RAD.BRZ ordered. EDVT EDVT 16:51 14:51 PlaVIX (clopidogrel) 600 mg PO once ordered. ne2 tw2 16:51 16:50 PlaVIX (clopidogrel) 600 mg PO once ordered. tw2 tw2 19:26 14:55 Telemetry/MedSurg (Inpatient) [facility] cs9 19:26 14:55 [facility] cs9 20:43 19:26 [facility] ER HOLD cs9 cg 20:43 19:26 ERHOLD- cs9 cg
--- NOTE | 2021-09-28 14:55 | ER ---
Nurse's Notes [facility] Name: Shelli Fonseca Age: 56 yrs Sex: Female : 1965 Arrival Date: 09/28/2021 Time: 13:28 Bed 4 Private MD: Diagnosis: Cerebral ischemia-stroke with right upper extremty weakness Presentation: 09/28 13:39 Chief complaint: Patient states: Right sided weakness and numbness that has been coming ww and going since last Wednesday. Coronavirus screen: Vaccine status: Patient reports being unvaccinated. Client denies travel out of the [place] in the last 14 days. Ebola Screen: Patient negative for fever greater than or equal to 101.5 degrees Fahrenheit, and additional compatible Ebola Virus Disease symptoms Patient denies exposure to infectious person. Initial Sepsis Screen: Does the patient meet any 2 criteria? No. Patient's initial sepsis screen is negative. Does the patient have a suspected source of infection? No. Patient's initial sepsis screen is negative. Risk Assessment: Do you want to hurt yourself or someone else? Patient reports no desire to harm self or others. Onset of symptoms is unknown. 13:39 Method Of Arrival: Wheelchair ww 13:39 Acuity: CLEVE 3 ww Triage Assessment: 13:36 Headache History: The patient has had previous headaches. General: Appears in no ww apparent distress. Behavior is cooperative, appropriate for age. Pain: Complains of pain in face and scalp. EENT: No deficits noted. No signs and/or symptoms were reported regarding the EENT system. Neuro: Level of Consciousness is awake, alert, obeys commands, Oriented to person, place, time, situation, Weakness Speech is normal. Cardiovascular: No deficits noted. Respiratory: Airway is patent Respiratory effort is even, unlabored, Respiratory pattern is regular, symmetrical. GI: No deficits noted. No signs and/or symptoms were reported involving the gastrointestinal system. : No deficits noted. No signs and/or symptoms were reported regarding the genitourinary system. Derm: No deficits noted. No signs and/or symptoms reported regarding the dermatologic system. Musculoskeletal: 13:39 Neuro: Facial droop on right. ww 16:05 Pain: Pain began Wednesday 2 weeks ago. tw2 16:06 Pain: Pain currently is 9 out of 10 on a pain scale. tw2 16:06 Pain: Also complains of no other associated symptoms. tw2 Historical: - Allergies: 13:36 Codeine; ww 13:36 Sulfa (Sulfonamide Antibiotics); ww - PMHx: 13:36 Fibromyalgia; Hypertension; RA; ulcertive colitis; Hypothyroidism; skin cancer; ww - Immunization history:: Client reports having NOT received the Covid vaccine. Flu vaccine is not up to date. - Social history:: Smoking status: Patient reports the use of cigarette tobacco products, smokes one pack cigarettes per day. Patient/guardian denies using alcohol, street drugs, The patient lives with family. - Family history:: not pertinent. Screenin:39 Abuse screen: Denies threats or abuse. Denies injuries from another. Nutritional ww screening: No deficits noted. Tuberculosis screening: No symptoms or risk factors identified. Fall Risk None identified. 14:06 Patient has been NPO before screening. The patient is alert, able to follow commands. tw2 The patient does not exhibit slurred or garbled speech The patient is not exhibiting difficulty speaking. The patient does not exhibit difficulty understanding words. The patient is able to swallow own secretions with no drooling or need for suction. The patient did not tolerate one teaspoon of water. Drooling, immediate coughing, gurgling, or clearing of the throat was noted. Bedside swallow screening discontinued. Patient kept NPO until cleared by Speech Therapy or Physician. The patient failed the bedside swallow screening. The patient will be kept NPO until cleared by Speech Therapy or Physician. Provider notified of bedside swallow screening results: Radha Castano MD. Assessment: 15:30 Reassessment: Patient appears in no apparent distress at this time. No changes from tw2 previously documented assessment. Patient and/or family updated on plan of care and expected duration. Pain level reassessed. Patient is alert, oriented x 3, equal unlabored respirations, skin warm/dry/pink. 16:40 Reassessment: Patient appears in no apparent distress at this time. No changes from tw2 previously documented assessment. Patient and/or family updated on plan of care and expected duration. Pain level reassessed. Patient is alert, oriented x 3, equal unlabored respirations, skin warm/dry/pink. 17:41 Reassessment: Patient appears in no apparent distress at this time. No changes from tw2 previously documented assessment. Patient and/or family updated on plan of care and expected duration. Pain level reassessed. Patient is alert, oriented x 3, equal unlabored respirations, skin warm/dry/pink. Vital Signs: 13:39 BP 164 / 96; Pulse 84; Resp 18; Temp 98.9; Pulse Ox 100% on R/A; Weight 86.18 kg; ww Height 5 ft. 6 in. (167.64 cm); Pain 0/10; 14:44 BP 152 / 76; Pulse 60; Resp 11; Pulse Ox 98% on R/A; tw2 15:30 BP 153 / 101; Pulse 60; Resp 17; Pulse Ox 99% on R/A; tw2 16:39 BP 100 / 73; Pulse 60; Resp 15; Pulse Ox 100% on R/A; tw2 17:41 BP 144 / 74; Pulse 51; Resp 17; Pulse Ox 98% on R/A; tw2 19:00 BP 132 / 78; Pulse 44; Resp 18; Pulse Ox 99% ; sm5 20:00 BP 143 / 73; Pulse 45; Resp 18; Pulse Ox 99% ; sm5 21:00 BP 150 / 90; Pulse 75; Resp 16; Pulse Ox 100% ; sm5 13:39 Body Mass Index 30.67 (86.18 kg, 167.64 cm) ww ED Course: 13:28 Patient arrived in ED. as 13:32 Placed in gown. Bed in low position. software quality engineer on. Pulse ox on. NIBP on. Warm tw2 blanket given. 13:38 Arm band placed on right wrist. ww 13:40 Triage completed. ww 13:41 Radha Castano MD is Attending Physician. ma2 14:04 Zoya Arthur, RN is Primary Nurse. tw2 14:20 CT Stroke Brain w/o Contrast In Process Unspecified. EDMS 14:43 Basic Metabolic Panel Sent. appiah 14:43 CBC with Diff Sent. appiah 14:43 CPK Sent. appiah 14:44 Hepatic Function Sent. appiah 14:55 Grayson Donohue DO is Hospitalizing Provider. ma2 15:28 SARS-COV-2 RT PCR (Document "Date of Onset" if Symptomatic) Sent. appiah 19:33 Primary Nurse role handed off by Zoya Arthur, CHATO cs9 22:10 Madie, Candice, RN is Primary Nurse. [facility] 22:17 No provider procedures requiring assistance completed. Patient admitted, IV remains in [facility] place. Administered Medications: 14:04 Drug: NS 0.9% 1000 ml Route: IV; Rate: 1 bolus; Site: left antecubital; tw2 14:56 Not Given (Patient Refused): Aspirin 325 mg PO once appiah 16:03 Drug: Ketorolac 30 mg Route: IVP; Site: right antecubital; appiah 16:03 Follow up: Response: No adverse reaction appiah 16:51 CANCELLED ( changed orderr): PlaVIX (clopidogrel) 600 mg PO once tw2 17:04 Drug: PlaVIX (clopidogrel) 300 mg Route: PO; tw2 18:19 Follow up: Response: No adverse reaction Outcome: 14:55 Decision to Hospitalize by Provider. [facility] 22:17 Admitted to Med/surg accompanied by tech, via stretcher, with chart. [facility] 22:17 Condition: stable 22:17 Instructed on the need for admit. 22:27 Patient left the ED. [facility] Signatures: Dispatcher [employer] Hailey Soria Tara, RN RN 2 Radha Castano MD MD [facility] Della Georges 9 Candice Ramachandran RN RN 5 Maris Ashford, RN CHATO Elena Sharma RN RN Corrections: (The following items were deleted from the chart) 14:44 14:44 To radiology for Chest Single View+RAD.RAD.BRZ. appiah EDMS
[2021-09-28 14:59] LABS: AST/SGOT 18 U/L (15-37); Magnesium 2.1 mg/dL (1.8-2.4); Potassium 3.8 mmol/L (3.5-5.1)
--- NOTE | 2021-09-28 15:51 | P.HP ---
Certification for Inpatient Patient admitted to: Observation With expected LOS: <2 Midnights Patient will require the following post-hospital care: Other (Home health with physical therapy) Practitioner: I am a practitioner with admitting privileges, knowledge of patient current condition, hospital course, and medical plan of care. Services: Services provided to patient in accordance with Admission requirements found in Title 42 Section 412.3 of the Code of Federal Regulations Patient History Date of Service: 09/28/21 Primary Care Provider: Dr. Gandara; Pain management-Dr. Robles([place]); Rheumatology Reason for admission: Right upper extremity weakness History of Present Illness: 56-year-old female with history of chronic pain with pain pump, rheumatoid arthritis, chronic headaches, hypertension, depression, hypothyroidism and tobacco abuse. Patient reports right upper extremity weakness over the last 2 weeks. She develop symptoms to the right upper extremity weakness on September 22. Symptoms have been getting worse. Symptoms would occur from time to time. Over the past 3 days she reported some weakness lasting about 30 seconds at a time. Today she reported more weakness to the right upper extremity and also some dysarthria. She denied any nausea, vomiting. She reports mild headache. No mention of chest pain, fever. Patient came to the ER for further evaluation. In the ER patient was evaluated. Blood pressure slightly elevated at 150/95. CT scan revealed 9 mm left frontal lobe CVA. CBC sodium 140, potassium 3.8. BUN of 17, creatinine 0.1, GFR 56. Troponin unremarkable. Patient was admitted for further evaluation and treatment. Allergies co Allergy (Uncoded 12/31/17 21:12) Unknown Sulfa (Sulfonamide Antibiotics) Allergy (Uncoded 12/31/17 21:12) Unknown Home medications list reviewed: Yes - Past Medical/Surgical History Diabetic: No -: Hypertension -: Hypothyroidism -: Rheumatoid arthritis -: Chronic pain with pain pump -: Depression -: Tobacco abuse -: Chronic headaches -: Pain pump with Dilaudid -: Cholecystectomy -: Hysterectomy Psychosocial/ Personal History: Patient is single. She worked as a nurse in the past. - Family History Mother -: Stroke Father -: Heart disease, Hypertension - Social History Smoking Status: Heavy Tobacco smoker (>10 cigarettes/day) Counseled patient to stop smoking for: less than 10 minutes Smoking therapy provided: Yes Patient receptive to therapy: Yes Alcohol use: No CD- Drugs: No Caffeine use: No Place of Residence: Home Review of Systems General: As per HPI Eyes: Unremarkable ENT: Unremarkable Respiratory: Unremarkable Cardiovascular: Unremarkable Gastrointestinal: Unremarkable Genitourinary: Unremarkable Musculoskeletal: As per HPI Integumentary: Unremarkable Neurological: Weakness (Right upper extremity weakness), As per HPI (Some dysarthria noted) Lymphatics: Unremarkable Physical Examination - Studies Laboratory Data (last 24 hrs) 09/28/21 13:56: PT 10.2, INR 0.89, APTT 36.0 09/28/21 13:56: WBC 7.80, Hgb 14.2, Hct 41.4, Plt Count 183 09/28/21 13:56: Sodium 140, Potassium 3.8, BUN 17, Creatinine 1.01, Glucose 114 H, Magnesium 2.1, Total Bilirubin 0.3, AST 18, ALT 23, Alkaline Phosphatase 104, Lipase 120 Assessment and Plan - Plan COVID: Pending CT scan head: Physical Exam: GENERAL: The patient is a well-developed, well-nourished, in no apparent distress. Alert and oriented x3. VITAL SIGNS: Reviewed HEENT: Head is normocephalic and atraumatic. Extraocular muscles are intact. Pupils are equal, round, and reactive to light and accommodation. Nares appeared normal. Mouth is well hydrated and without lesions. Mucous membranes are moist. NECK: Supple. No carotid bruits. No lymphadenopathy or thyromegaly. LUNGS: Clear to auscultation. No crackles or wheezes are heard. HEART: Regular rate and rhythm, no appreciable gallops, rubs, murmurs or extra heart sounds ABDOMEN: Soft, nontender, and nondistended. Positive bowel sounds. No hepatosplenomegaly was noted. EXTREMITIES: Without any cyanosis, clubbing, rash, lesions or peripheral edema. NEUROLOGIC: The patient is oriented to person, place and time. Strength and sensation are grossly intact. Face is symmetric. SKIN: Normal color, turgor and temperature. No ulcerations or rashes noted. Impression: Right upper extremity weakness and dysarthria secondary to acute left frontal lobe CVA Hypertension Rheumatoid arthritis Chronic pain with Dilaudid pain pump Hypothyroidism Depression Tobacco abuse GERD Chronic headaches Plan: Right upper extremity weakness and dysarthria secondary to acute left frontal lobe CVA: Patient admitted for further evaluation and treatment. Case discussed with neurology. Will obtain CT scan with contrast of the brain and neck to further evaluate. Stroke protocol in place. We will also obtain echocardiogram, carotid Doppler and stroke protocol MRI to further assess. Symptoms have been present for over 2 weeks. Will start Plavix as patient has issues taking aspirin. Patient will continue with Lipitor 40 mg daily and folic acid 1 mg daily. Speech, physical therapy, and Occupational Therapy has been consulted to further evaluate patient. Anticipate continued improvement. Possible discharge as early as tomorrow if patient able to be safely discharged. I will turn the service over to the hospitalist team tomorrow. I will go plan of care with him. Hypertension: Continue with losartan 100 mg daily. Blood pressure around 150/95. Maintain blood pressure around 150-170 systolic and 85-95 diastolic. Will provide IV hydralazine if blood pressure greater than 180 systolic or greater than 100 diastolic. Hold blood pressure medication if blood pressure systolic less than 140 for the next 24 to 48 hours. Further adjustment in medication can be done after that time. Rheumatoid arthritis: Patient is seen by rheumatology as an outpatient. Continue with pain regimen. Will provide medication for pain. Chronic pain with Dilaudid pain pump: Patient with Dilaudid pump. She is seen by pain management. Will provide medication for mild and moderate pain. Continue with gabapentin 800 mg 3 times a day. Hypothyroidism: Continue levothyroxine 75 mcg daily. Will check TSH and free T4. Depression: Continue sertraline 100 mg daily Tobacco abuse: Tobacco cessation addressed in detail. Patient plans to quit. Will provide nicotine patch. GERD: We will provide Pepcid Chronic headaches: Continue Topamax 200 mg daily Code Status: Full Code DVT prophylaxis: Lovenox Advanced Care Planning-30 minutes: Physical therapy, speech and Occupational Therapy to evaluate. Anticipate likely discharge tomorrow if patient safely can be discharged. Will arrange for home health and physical therapy. Discharge Plan: Home Plan to discharge in: 24 Hours - Advance Directives Does patient have a Living Will: No Does patient have a Durable POA for Healthcare: No - Code Status/Comfort Care Code Status Assessed: Yes (Patient is full code) Time Spent Managing Pts Care (In Minutes): 55
[2021-09-28] MEDS ORDERED: KETOROLAC 30 MG/ML INJ ONE (16:02)
--- NOTE | 2021-09-28 16:14 | RAD REPORT ---
EXAM DESCRIPTION: Jocelyn Single View09/28/2021 3:57 pm CLINICAL HISTORY: Right arm weakness COMPARISON: 2019 FINDINGS: The lungs appear clear of acute infiltrate. The heart is normal size IMPRESSION: No acute abnormalities displayed
--- NOTE | 2021-09-28 16:46 | RAD REPORT ---
EXAM DESCRIPTION: Gregory Angio09/28/2021 4:30 pm CLINICAL HISTORY: cva COMPARISON: None TECHNIQUE: 50 cc Isovue 370 was administered intravenously. 3D MIP reconstruction performed All CT scans are performed using dose optimization technique as appropriate and may include automated exposure control or mA/KV adjustment according to patient size. FINDINGS: Mild calcified plaque within internal carotid arteries bilaterally. Common carotid and external carotid arteries bilaterally are unremarkable Vertebral arteries are codominant without visualization of significant abnormality. No dissection is seen IMPRESSION: Mild plaque within the carotid arteries. No significant abnormalities displayed NASCET criteria used. Mild 0-49% stenosis Moderate 50-69% stenosis Severe 70-99% stenosis
--- NOTE | 2021-09-28 16:49 | RAD REPORT ---
EXAM DESCRIPTION: CTHead angio09/28/2021 4:29 pm CLINICAL HISTORY: CVA COMPARISON: None TECHNIQUE: CT angiogram of the head was obtained. 3D MIPS reconstruction performed. All CT scans are performed using dose optimization technique as appropriate and may include automated exposure control or mA/KV adjustment according to patient size. FINDINGS: The basilar,, anterior cerebral, middle cerebral and posterior cerebral arteries are agustín l caliber. Mild calcified plaque distal internal carotid arteries origin posterior cerebral arteries. An aneurysm is not seen. A significant stenosis is not noted. IMPRESSION: No significant abnormality displayed
[2021-09-28] MEDS ORDERED: CLOPIDOGREL 75 MG TABLET ONE (16:51)
[2021-09-28 16:53] LABS: Barbiturates NEGATIVE (NEGATIVE); Benzodiazepines NEGATIVE (NEGATIVE); Cocaine NEGATIVE (NEGATIVE); METHAMPHETAM NEGATIVE (NEGATIVE); Methadone NEGATIVE (NEGATIVE); Opiates NEGATIVE (NEGATIVE); Phencyclidine NEGATIVE (NEGATIVE); THC Cannibis NEGATIVE (NEGATIVE)
[2021-09-28] MEDS ORDERED: TRAMADOL HCL 50 MG TAB PO PRN (21:33)
[2021-09-28] MEDS ORDERED: ACETAMINOPHEN 500 MG TAB PO PRN (21:33)
[2021-09-28] MEDS ORDERED: HYDRALAZINE HCL 20 MG/ML VIAL IV PRN (21:33)
[2021-09-28] MEDS ORDERED: ONDANSETRON 4 MG/2 ML VIAL IV PRN (21:33)
[2021-09-28] MEDS ORDERED: HYDROCODONE/APAP 7.5/325 MG TAB PO PRN (21:33)
[2021-09-28] MEDS ORDERED: NA CHLORIDE 0.9% 1,000 ML IV SCH (21:33)
[2021-09-28 23:12] VITALS: BMI 4217.2
[2021-09-29] MEDS: GABAPENTIN 400 MG CAP PO SCH ×4 (00:08→22:14)
[2021-09-29] MEDS: ATORVASTATIN 20 MG TAB PO SCH ×2 (00:08→22:14)
[2021-09-29] MEDS: FAMOTIDINE 20 MG TAB PO SCH ×3 (00:09→22:14)
[2021-09-29] MEDS: TOPIRAMATE 100 MG TAB PO SCH ×3 (00:09→22:14)
[2021-09-29] MEDS: NA CHLORIDE 0.9% 1,000 ML IV SCH ×2 (00:09→17:33)
[2021-09-29 05:38] LABS: Absolute Lymphocytes (CBC) 2.4 K/uL (0.7-4.9); Hematocrit 37.1 % (36.0-45.0); Lymphocytes % 41.6 % (15.3-44.8); MPV 7.3 fL (7.6-11.3)
[2021-09-29 06:24] LABS: Bilirubin Total 0.4 mg/dL (0.2-1.0); Magnesium 2.1 mg/dL (1.8-2.4); Potassium 4.2 mmol/L (3.5-5.1); Protein, Total 6.8 g/dL (6.4-8.2); T4,Total 7.1 ug/dL (4.8-13.9); Thyroid Stimulating Hormone 1.51 uIU/mL (0.360-3.740)
[2021-09-29] MEDS: LEVOTHYROXINE SOD 0.075 MG TAB PO SCH (07:37)
[2021-09-29] MEDS ORDERED: PNEUMOCOCCAL VACCINE 0.5 ML IMVAC ONE (08:00)
[2021-09-29] MEDS ORDERED: INFLUENZA VACCINE (for 6+ mo) 0.5 ML DOSE IMVAC ONE (08:00)
[2021-09-29] MEDS: LOSARTAN POTASSIUM 50 MG TABLET PO SCH (09:00)
[2021-09-29] MEDS: FOLIC ACID 1 MG TABLET PO SCH (09:39)
[2021-09-29] MEDS: ENOXAPARIN 40 MG/0.4 ML SQ SCH (09:40)
[2021-09-29] MEDS: CLOPIDOGREL 75 MG TABLET PO SCH (09:40)
[2021-09-29] MEDS: NICOTINE 21 MG/PAT TD SCH (09:40)
[2021-09-29] MEDS: SERTRALINE HCL 100 MG TAB PO SCH (09:40)
--- NOTE | 2021-09-29 13:09 | RAD REPORT ---
EXAM DESCRIPTION: USCarotid Artery Bilateral09/28/2021 11:54 pm CLINICAL HISTORY: CVA COMPARISON: None FINDINGS: The velocity of the right internal carotid artery 63 equals cm/sec. The right ICA/CCA rat io 0.8 The velocity of the left internal carotid artery equals 64 cm/sec. The left ICA/CCA ratio 1.1 Mild plaque is present within the carotid arteries. Left vertebral artery demonstrate antegrade flow. Suboptimal evaluation of the right vertebral artery IMPRESSION: Mild plaque within the carotid arteries without evidence of a hemodynamically significan t stenosis NASCET criteria used. Mild 0-49% stenosis Moderate 50-69% stenosis Severe 70-99% stenosis
--- NOTE | 2021-09-29 15:19 | RAD REPORT ---
EXAM DESCRIPTION: MRI - Brain W/Wo Cont - 09/29/2021 2:50 pm CLINICAL HISTORY: left frontal lobe CVA, RUE weakness/Dysarthria Headache, drowsiness, CVA symptomology COMPARISON: MRA Head Wo Cont dated 09/29/2021; MRA Neck W/Wo Cont dated 09/29/2021; Head angio dated ; Ct Stroke Brain Wo Cont dated 09/28/2021 TECHNIQUE: Multi-sequence, multiplanar MR imaging of the brain was performed with contrast. FINDINGS: 3.0 x 1.5 cm area of acute CVA suspected in the lateral aspect of the left temporal lobe a nteriorly. Additional area of acute CVA measuring 12 mm noted in the left periventricular white matte r with multiple additional smaller foci of acute CVA present in the distribution of the left centrum semiovale white matter. No midline shift is evident. No intracranial hemorrhage or hydrocephalus.Mastoid air cells and parana sapna sinuses are clear. Post-contrast images show no abnormal enhancement to suggest tumor or infection. IMPRESSION: Several areas of acute CVA are seen on the left, largest in the anterolateral left tempo ral lobe. Additional areas of CVA seen left centrum semiovale white matter, largest measuring 12 mm. The somewhat atypical pattern of distribution raises the possibility of underlying embolic phenomenon . No pathologic post-contrast enhancement suspected.
--- NOTE | 2021-09-29 15:22 | RAD REPORT ---
EXAM DESCRIPTION: MRI - MRA Head Wo Cont - 09/29/2021 2:50 pm CLINICAL HISTORY: left frontal lobe CVA, RUE weakness/Dysarthria CVA COMPARISON: Head angio dated 09/28/2021 FINDINGS: 3D noncontrast [id number] MR angiography of the samish of [place] was performed. No aneurysm or vascular malformation. There is a mildly irregular appearance to the left M1 segment w ith diminished flow. Forward flow seen in codominant vertebral arteries. The visualized dural venous sinuses appear patent. IMPRESSION: Diminished flow and mildly irregular appearance of the left M1 segment may indicate athe rosclerotic plaquing, contributing to CVA findings seen on MR brain.
--- NOTE | 2021-09-29 15:35 | RAD REPORT ---
EXAM DESCRIPTION: MRI - MRA Neck W/Wo Cont - 09/29/2021 2:49 pm CLINICAL HISTORY: left frontal lobe CVA, RUE weakness/Dysarthria COMPARISON: No comparisons FINDINGS: Contrast enhance 2D [id number] MR angiography of the neck vessels was performed. A left aortic arch is present with normal branching pattern of the great vessels. Subclavian and common carotid arteries unremarkable bilaterally. 1 cm length of narrowing is seen left carotid bulb and left proximal ICA resulting in 50-70% stenosis based NASCET criteria. No significant right-sided internal carotid artery stenosis. Antegrade flow is seen in both vertebral arteries. IMPRESSION: 50-70% stenosis suspected left carotid bulb.
--- NOTE | 2021-09-29 19:00 | P.PN ---
Subjective Date of Service: 09/29/21 Patient still with weakness; Review of Systems 10-point ROS is otherwise unremarkable Physical Examination - Vital Signs Temperature: 97.4 F Blood Pressure: 160/85 Pulse: 71 Respirations: 16 Pulse Ox (%): 97 - Physical Exam General: Alert, In no apparent distress, Oriented x3 Respiratory: Clear to auscultation bilaterally, Normal air movement Cardiovascular: Regular rate/rhythm, Normal S1 S2, No murmurs Gastrointestinal: Normal bowel sounds, Soft and benign, Non-distended, No tenderness Musculoskeletal: No clubbing, No swelling, No tenderness Neurological: Sensation intact, Cranial nerves 3-12 intact - Studies Medications List Reviewed: Yes Assessment & Plan - Problems (Diagnosis) (1) Acute CVA (cerebrovascular accident) Current Visit: Yes Status: Acute - Advance Directives Does patient have a Living Will: No Does patient have a Durable POA for Healthcare: No
--- NOTE | 2021-09-29 22:38 | CON ---
Consultation called because of stroke. History Of Present Illness: The patient is a 56-year-old right-handed patient with hyperte nsion, tobacco abuse, and hypothyroidism who comes to [facility] with 2 weeks of right upper extremity weakness, dizziness, and difficulty getting her thoughts and words out. She did not immed iately seek medical attention, as these symptoms developed, but what actually brought her in is that she said for about 30 seconds on the morning of her admission in the night, she could not get her tho ughts together, could not get her words out and that seemed to improve, but she did have a persistent right-sided symptoms in terms of weakness and numbness in the face and arms with little involvement of the legs. At [facility], her head CT scan showed a 9 mm low-density in the posterior lef t frontal lobe, likely representing an infarct, age undetermined. The brain MRI did reveal the area to have a 3 x 1.5 cm acute infarct in the lateral aspect of the left temporal lobe. Additional area of infarct measuring 12 mm noted in the left periventricular white matter and multiple additional sma ll foci of acute MCA in the distribution of the left centrum semiovale, all likely coming off the lef t MCA perhaps M1 branch and eventually was seen on magnetic resonance angiogram of the brain and the angiogram did identify a diminished area of flow with irregular appearance in the left M1 segment, is suggesting arthrosclerotic plaque which likely is the contributing reason for the patient's stroke s een on MRI and her clinical symptoms involving the right side with some difficulty with expressive ap hasia and persistent right sided weakness. Magnetic resonance angiogram of her neck did show a 50% t o 70% stenosis of the left carotid bulb which is likely also contributing to her symptoms. Her carot id artery ultrasound did not show any evidence of hemodynamically significant stenosis, however. Laboratory Studies: Showed essentially unremarkable complete blood count with differential. Coagula tion panel also unremarkable. Her lipid panel showed elevated cholesterol of 218, LDL of [place] n 140, HDL low at 38. Her basic metabolic panel essentially unremarkable. Glucose range of 314. Ca lcium and magnesium were normal. Liver function studies normal. TSH 1.51. Her urine drug screen wa s negative. COVID-19 testing negative. Her chest x-ray also showed no acute abnormalities. Past Medical History: As noted, in addition to rheumatoid arthritis, she has a pain pump for chronic pain, depression, chronic headache. Past Surgical History: Cholecystectomy, hysterectomy, pain pump implantation. Social History: Chronic tobacco abuse. Family History: Stroke in mother, heart disease and hypertension in father. Allergies: SULFA. Medications: Drake 7.5/325 every 6 hours, Lipitor 40 mg at bedtime, Plavix 75 mg daily, Lovenox 40 m g subcutaneously daily, Pepcid 20 mg twice daily, folate 1 mg daily, gabapentin 800 mg 3 times a day , Apresoline IV 10 mg as needed, Synthroid 0.075 mg daily, Cozaar 100 mg daily, nicotine patch, Zolof t 100 mg daily, Topamax 200 mg twice daily, tramadol 50 mg 3 times daily as needed. Review of Systems: Ms. Fonseca has had difficulty with balance, coordination, gait, dizziness as noted, nausea as well, and otherwise, denies any recent fevers, chills, any myalgias, arthralgias, rash, unaddressed psychia tric issues and depression is addressed. Physical Examination: Vital Signs: Blood pressure 160/85, pulse 91, respiratory rate 16, temperature 97.4, O2 saturation 9 7% on room air. Weight 191 pounds, height 5 feet 6 inches, BUN 30.9. General: Raymundo is resting in bed. Her granddaughter is at the bedside. HEENT: She is normocephalic, atraumatic. Sclerae anicteric. Oropharynx is pink and moist. Neck: Supple. Chest: Clear. Heart: Regular. Extremities: Show no significant edema, cyanosis, or clubbing. Neurologic: She is alert and oriented to situation, place, and person. In terms of cranial nerves, she has mild decrease in the right naso labial fold with fair excursions and smiling. She has decreased light touch in the right face compar ed to the left side. Otherwise, tongue and palate are midline. Motor examination in the right upper extremity, she has 4/5 strength proximally and distally and left 5/5. Lower extremity, she has inta ct strength in the lower extremity proximally and distally. Sensory exam is slightly decreased to li ght touch to temperature on the right compared to the left upper extremity, intact in the left lower extremity and right lower extremity. In terms of her ambulation, she ambulated without an assistive device, covering 270 feet with normal ishaan. No gait abnormalities were identified. Assessment: Ms. Fonseca is a 56-year-old patient with left M1 distribution stroke, producing right-s ided weakness in upper extremity and some transient expressive aphasia, also numbness. She does have significant luminal narrowing of the left carotid bulb which is also contributing her deficits and s he has luminal narrowing of the M1 segment of the left MCA. She has multiple comorbid stroke risk fa ctors as noted above. Plan: 1.Aspirin and Plavix along with folic acid, statin. 2.She will likely benefit from an intra-arterial procedure which may be done at a [facility] er such as . 3.She was advised to stop smoking cigarettes and to be very aggressive about management of her risk factors including hypertension, dyslipidemia. 4.She is doing very well in terms of her recovery, but may benefit from outpatient physical therapy to help her recover with use of her dominant right hand and to improve the movement of her face to he lp return to normal. 5.After discharge, she should follow up in Dr. Abdul's clinic in 1 month later. BALA/TIFFANIE Voice ID: [id number] Report ID: [id number]
[2021-09-30] MEDS: LEVOTHYROXINE SOD 0.075 MG TAB PO SCH (06:24)
[2021-09-30] MEDS: NA CHLORIDE 0.9% 1,000 ML IV SCH ×2 (06:25→13:27)
--- NOTE | 2021-09-30 07:35 | ECHO ---
HEIGHT: 5 ft 6 in WEIGHT: 191 lb 8 oz DATE OF STUDY: 09/29/[address]: Grayson Donohue DO 2-DIMENSIONAL: YES M.MODE: YES DOPPLER: YES COLOR FLOW: YES TDS: PORTABLE: DEFINITY: BUBBLE STUDY: DIAGNOSIS: LEFT FRONTAL LOBE CEREBRAL VASCULAR ACCIDENT CARDIAC HISTORY: CATHERIZATION: SURGERY: PROSTHETIC VALVE: PACEMAKER: MEASUREMENTS (cm) DIASTOLIC (NORMALS) SYSTOLIC (NORMALS) IVSd 1.1 (0.6-1.2) LA Diam 2.6 (1.9-4.0) LVEF 65% LVIDd 3.6 (3.5-5.7) LVIDs 2.3 (2.0-3.5) %FS 35% LVPWd 1.2 (0.6-1.2) Ao Diam 2.7 (2.0-3.7) 2 DIMENSIONAL ASSESSMENT: RIGHT ATRIUM: NORMAL LEFT ATRIUM: NORMAL RIGHT VENTRICLE: NORMAL LEFT VENTRICLE: NORMAL TRICUSPID VALVE: MILD TRICUSPID REGURGITATION MITRAL VALVE: MILD MITRAL REGURGITATION PULMONIC VALVE: NORMAL AORTIC VALVE: NORMAL PERICARDIAL EFFUSION: NONE AORTIC ROOT: NORMAL LEFT VENTRICULAR WALL MOTION: NORMAL DOPPLER/COLOR FLOW: SEE BELOW COMMENTS: NORMAL LEFT VENTRICULAR EJECTION FRACTION 60-65% WITH NORMAL WALL MOTION. MILD TRICUSPID REGURGITATION. MILD MITRAL REGURGITATION. TECHNOLOGIST: HUSSEIN INGRAM
[2021-09-30] MEDS: LOSARTAN POTASSIUM 50 MG TABLET PO SCH (09:00)
[2021-09-30 09:42] VITALS: O2SAT 100
[2021-09-30] MEDS: NICOTINE 21 MG/PAT TD SCH (09:56)
[2021-09-30] MEDS: CLOPIDOGREL 75 MG TABLET PO SCH (09:57)
[2021-09-30] MEDS: TOPIRAMATE 100 MG TAB PO SCH ×2 (09:57→20:00)
[2021-09-30] MEDS: GABAPENTIN 400 MG CAP PO SCH ×3 (09:58→20:00)
[2021-09-30] MEDS: FOLIC ACID 1 MG TABLET PO SCH (09:58)
[2021-09-30] MEDS: ENOXAPARIN 40 MG/0.4 ML SQ SCH (09:59)
[2021-09-30] MEDS: SERTRALINE HCL 100 MG TAB PO SCH (10:00)
[2021-09-30] MEDS: FAMOTIDINE 20 MG TAB PO SCH ×2 (10:00→20:00)
[2021-09-30 17:29] VITALS: BP 159/77; TEMP 97.5
[2021-09-30] MEDS: ATORVASTATIN 20 MG TAB PO SCH (20:00)
== END 2021-09-30 20:33 | disposition home or self-care (01) | DRG 65 ==
LOC: ER 13:28 → ERHOLD 15:33 → 2ND 21:27
PROVIDERS: ADMIT Family Medicine; ATTEND Hospitalist
DX: I63.9 Cerebral infarction, unspecified (principal); G81.91 Hemiplegia, unspecified affecting right dominant side; I10 Essential (primary) hypertension; M79.7 Fibromyalgia; M06.9 Rheumatoid arthritis, unspecified; K21.9 Gastro-esophageal reflux disease without esophagitis; E03.9 Hypothyroidism, unspecified; F32.A Depression, unspecified; G89.29 Other chronic pain; F17.210 Nicotine dependence, cigarettes, uncomplicated; R47.01 Aphasia; R51.9 Headache, unspecified; Z88.5 Allergy status to narcotic agent; Z88.1 Allergy status to other antibiotic agents; Z90.49 Acquired absence of other specified parts of digestive tract; Z90.710 Acquired absence of both cervix and uterus; Z97.8 Presence of other specified devices; Z79.890 Hormone replacement therapy; Z79.899 Other long term (current) drug therapy; Z20.822 Contact with and (suspected) exposure to COVID-19
CPT/HCPCS: 36415; 70450; 70496; 70498; 70544; 70549; 70553; 71045; 80048; 80053; 80061; 80076; 80307; 82550; 82947; 83690; 83735; 84436; 84443; 84484; 85025; 85610; 85730; 90732; 92610; 93005; 93306; 93880; 96374; 97116; 97161; 97165; 99285; A9577; J1650; J7030; Q2035; Q9967; U0003

== ENCOUNTER 2022-02-06 18:39 | Emergency (ER) | payer OTHER ==
--- OUTSIDE RECORDS SUMMARY | 2022-02-06 18:43 | XMS REPORT | Continuity of Care Document ---
:1965 Author Organization [facility] t Address [address] [place] [address] Dr. [address] [place] [address] Care Team Providers Name Role Phone Blayne HUNG Primary Care Physician TOVA Attending Clinician Unavailable Brenda HUNG Attending Clinician STEPHEN Attending Clinician Unavailable CHANTE Attending Clinician Unavailable CHANTE Attending Clinician Unavailable Lab, Fam Pob I Attending Clinician Unavailable Marcelle LARSON Attending Clinician MARCELLE Attending Clinician Unavailable Sukhdeep Lozano Attending Clinician SUKHDEEP JUAN Attending Clinician Unavailable Doctor Unassigned, Name Attending Clinician Unavailable Poncho Espinosa MD Attending Clinician PONCHO ESPINOSA Attending Clinician Unavailable PONCHO ESPINOSA Attending Clinician Unavailable Ralph Valenzuela DO Attending Clinician Provider, Urgent Care Attending Clinician Unavailable Radha LARSON Attending Clinician RADHA Attending Clinician Unavailable Kimberly Brown Attending Clinician Kimberly MEIER Attending Clinician Unavailable Sosa MARTÍNEZ Attending Clinician Unavailable [facility] Attending Clinician Unavailable Yolis Chadnler Attending Clinician Yolis LOPEZ Attending Clinician Unavailable Nathen Barnett Attending Clinician NATHEN MATHEW Attending Clinician Unavailable MD BRAYAN MITCHELL Admitting Clinician Unavailable NATHEN MATHEW Admitting Clinician Unavailable Payers Payer Name Policy Type Policy Number Effective Date Expiration Date S ource MEDICARE PART A AND [id number] 2008 B 00:00:00 [employer] [id number] 2021 BEHAVIORAL 00:00:00 SOLUTIONS MEDICARE PART A \T\ [id number] 2006 B 00:00:00 Problems Condition Condition Condition Status Onset Resolution Last Treating Co mments Source Name Details Category Date Date Treatment Clinician Date No known No known Disease Unive rs active active ity of problems problems [facility] Allergies, Adverse Reactions, Alerts Allergy Allergy Status Severity Reaction(s) Onset Inactive Treating Comm ents Source Name Type Date Date Clinician Codeine Propensi Active [facility] ty to 4-26 Health adverse 00:00: reaction 00 s Sulfa Allergy Active 0 [facility] Antibiot to 4-26 Health ics substanc 00:00: e 00 Latex Drug Active Hives Univers Allergy 7-28 ity of 00:00: [place] 00 [facility] LATEX DRUG Active Hives Univers INGREDI 7-28 ity of 00:00: [place] 00 [facility] Latex Allergy Active Hives [facility] to 7-28 Health substanc 00:00: e 00 Codeine Drug Active Nausea Stomach Univers Allergy and/or 5-05 pain ity of Vomiting 00:00: [place] 00 [facility] CODEINE DRUG Active Other-Cmnt Unive rs INGREDI 5-05 ity of 00:00: [place] 00 [facility] SULFA Drug Active Other-Cmnt Univer s (SULFONA Class 5-05 ity of MIDE 00:00: [place] ANTIBIOT 00 Medical ICS) Branch Codeine Propensi Active Other - See Stomach U nivers ty to comments 5-05 pain ity of adverse 00:00: [place] reaction 00 Medical s Branch Sulfa Propensi Active Rash Stomach Univers (Sulfona ty to 5-05 pain ity of mide adverse 00:00: [place] Antibiot reaction 00 Medica l ics) s Branch Celecoxi Drug Active Rash Univers b Allergy -16 ity of 00:00: [place] 00 [facility] Branch CELECOXI DRUG Active Rash Univers B INGREDI 10-05 ity of 00:00: [place] 00 [facility] Celecoxi Allergy Active Rash UT b to 16 Health substanc 00:00: e 00 Social History Social Habit Start Date Stop Date Quantity Comments Source History of tobacco Cigarette Smoker [facility] use Exposure to Not sure [facility] SARS-CoV-2 (event) Tobacco use and 2022-01-13 2022-01-13 Smokeless tobacco [facility] exposure 00:00:00 00:00:00 non-user Sex Assigned At [birth year] F [facility] 00:00:00 00:00:00 Smoking Status Start Date Stop Date Source Tobacco smoking consumption unknown [facility] Smokes tobacco daily 2022-01-13 00:00:[facility] Medications Ordered Filled Start Stop Current Ordering Indication Dosage Frequency Signature Comments Components Source Medication Medication Date Date Medication? Clinician (SIG) Name Name HYDROmorpho Yes Infuse [facility] ne 4-26 into a Health 14:36: venous 32 catheter. levothyroxi Yes 125ug Take 125 U T ne 4-26 mcg by Health (Synthroid, 14:22: mouth. Levoxyl) 21 125 MCG tablet gabapentin Yes 800mg Take 800 UT (Neurontin) 4-26 mg by Health 800 MG 14:22: mouth. tablet 21 sertraline Yes 100mg Take 100 UT (Zoloft) 4-26 mg by Health 100 MG 14:22: mouth. tablet 21 tiZANidine Yes 4mg Take 4 mg UT (Zanaflex) 4-26 by mouth. Heal th 4 MG tablet 14:22: 21 butalbital- Yes UT aspirin-caf 3-16 Health feine 00:00: (Fiorinal) 00 50-325-40 MG capsule folic acid Yes UT (Folvite) 1 3-14 Health MG tablet 00:00: 00 omeprazole Yes [facility] (PriLOSEC) 3-[address] 00:00: capsule 00 losartan 0 Yes UT (Cozaar) 3-11 Health 100 MG 00:00: tablet 00 clopidogrel 0 Yes UT (Plavix) 75 3-11 Health MG tablet 00:00: 00 atorvastati Yes UT n (Lipitor) 3-11 Health 80 MG 00:00: tablet 00 topiramate Yes 200mg 200 mg. [facility] (Topamax) 1-10 Health 200 MG 00:00: tablet 00 oxyCODONE Yes Take by Univ ers 15 mg TbOr 5-04 mouth. ity of 20:08: [address] oxyCODONE Yes Take by Univ ers 15 mg TbOr 5-04 mouth. ity of 20:08: [address] oxyCODONE Yes Take by Univ ers 15 mg TbOr 5-04 mouth. ity of 20:08: [address] oxyCODONE Yes Take by Univ ers 15 mg TbOr 5-04 mouth. ity of 20:08: [address] oxyCODONE Yes Take by Univ ers 15 mg TbOr 5-04 mouth. ity of 20:08: [address] oxyCODONE Yes Take by Univ ers 15 mg TbOr 5-04 mouth. ity of 20:08: [address] oxyCODONE Yes Take by Univ ers 15 mg TbOr 5-04 mouth. ity of 20:08: [address] oxyCODONE Yes Take by Univ ers 15 mg TbOr 5-04 mouth. ity of 20:08: [address] oxyCODONE Yes Take by Univ ers 15 mg TbOr 5-04 mouth. ity of 20:08: [address] hydromorpho Yes Pain pump U nivers ne HCl 5-04 ity of (DILAUDID 19:45: [place] [address] hydromorpho Yes Pain pump U nivers ne HCl 5-04 ity of (DILAUDID 19:45: [place] MIS) 11 Medical Branch hydromorpho Yes Pain pump U nivers ne HCl 5-04 ity of (DILAUDID 19:45: [place] MIS) 11 Medical Branch hydromorpho Yes Pain pump U nivers ne HCl 5-04 ity of (DILAUDID 19:45: [place] MIS) 11 Medical Branch hydromorpho Yes Pain pump U nivers ne HCl 5-04 ity of (DILAUDID 19:45: [place] MIS) 11 Medical Branch hydromorpho Yes Pain pump U nivers ne HCl 5-04 ity of (DILAUDID 19:45: [place] MIS) 11 Medical Branch hydromorpho Yes Pain pump U nivers ne HCl 5-04 ity of (DILAUDID 19:45: [place] MIS) 11 Medical Branch hydromorpho Yes Pain pump U nivers ne HCl 5-04 ity of (DILAUDID 19:45: [facility]) 11 Medical Branch hydromorpho Yes Pain pump U nivers ne HCl 5-04 ity of (DILAUDID 19:45: [place] MIS) 11 Medical Branch azithromyci Yes [id number] 250mg Take 1 Univers n 250 mg 1-24 tablet by ity of tablet 00:00: mouth [place] 00 daily. Medical Take 500 Branch mg day 1, then 250 mg days 2 to 5. benzonatate Yes [id number] 100mg Take 1 Univers (TESSALON 1-24 capsule by ity of MARYSE) 100 00:00: mouth 3 [facility] as mg capsule 00 (three) Medica l times Branch daily as needed for Cough. albuterol Yes [id number] 2{puff} Inhale 2 Univers 90 1-24 Puffs ity of mcg/actuati 00:00: every 6 Ben as on inhaler 00 (six) Medical hours as Branch needed for Wheezing, Shortness of Breath or Chest tightness. diphenoxyla Yes [id number] 1{tbl} Take 1 Univers te-atropine 1-24 tablet by ity of 2.5-0.025 00:00: mouth [place] mg tablet 00 every 6 Medical (six) Branch hours as needed for Other (diarrhea) . azithromyci 0 Yes [id number] 250mg Take 1 Univers n 250 mg 1-24 tablet by ity of tablet 00:00: mouth [place] 00 daily. Medical Take 500 Branch mg day 1, then 250 mg days 2 to 5. benzonatate 0 Yes [id number] 100mg Take 1 Univers (TESSALON 1-24 capsule by ity of PERLES) 100 00:00: mouth 3 [place] as mg capsule 00 (three) Medica l times Branch daily as needed for Cough. albuterol 0 Yes [id number] 2{puff} Inhale 2 Univers 90 1-24 Puffs ity of mcg/actuati 00:00: every 6 [place] as on inhaler 00 (six) Medical hours as Branch needed for Wheezing, Shortness of Breath or Chest tightness. diphenoxyla Yes [id number] 1{tbl} Take 1 Univers te-atropine 1-24 tablet by ity of 2.5-0.025 00:00: mouth [place] mg tablet 00 every 6 Medical (six) Branch hours as needed for Other (diarrhea) . azithromyci 0 Yes [id number] 250mg Take 1 Univers n 250 mg 1-24 tablet by ity of tablet 00:00: mouth [place] 00 daily. Medical Take 500 Branch mg day 1, then 250 mg days 2 to 5. benzonatate 0 Yes [id number] 100mg Take 1 Univers (TESSALON 1-24 capsule by ity of PERLES) 100 00:00: mouth 3 [place] mg capsule 00 (three) Medica l times Branch daily as needed for Cough. albuterol 0 Yes [id number] 2{puff} Inhale 2 Univers 90 1-24 Puffs ity of mcg/actuati 00:00: every 6 [place] as on inhaler 00 (six) Medical hours as Branch needed for Wheezing, Shortness of Breath or Chest tightness. diphenoxyla 0 Yes [id number] 1{tbl} Take 1 Univers te-atropine 1-24 tablet by ity of 2.5-0.025 00:00: mouth [place] mg tablet 00 every 6 Medical (six) Branch hours as needed for Other (diarrhea) . azithromyci Yes [id number] 250mg Take 1 Univers n 250 mg 1-24 tablet by ity of tablet 00:00: mouth [place] 00 daily. Medical Take 500 Branch mg day 1, then 250 mg days 2 to 5. benzonatate Yes [id number] 100mg Take 1 Univers (TESSALON 1-24 capsule by ity of PERLES) 100 00:00: mouth 3 [place] mg capsule 00 (three) Medica l times Branch daily as needed for Cough. albuterol Yes [id number] 2{puff} Inhale 2 Univers 90 1-24 Puffs ity of mcg/actuati 00:00: every 6 [place] as on inhaler 00 (six) Medical hours as Branch needed for Wheezing, Shortness of Breath or Chest tightness. diphenoxyla Yes [id number] 1{tbl} Take 1 Univers te-atropine 1-24 tablet by ity of 2.5-0.025 00:00: mouth [place] mg tablet 00 every 6 Medical (six) Branch hours as needed for Other (diarrhea) . azithromyci Yes [id number] 250mg Take 1 Univers n 250 mg 1-24 tablet by ity of tablet 00:00: mouth [place] 00 daily. Medical Take 500 Branch mg day 1, then 250 mg days 2 to 5. benzonatate Yes [id number] 100mg Take 1 Univers (TESSALON 1-24 capsule by ity of PERLES) 100 00:00: mouth 3 [place] as mg capsule 00 (three) Medica l times Branch daily as needed for Cough. albuterol Yes [id number] 2{puff} Inhale 2 Univers 90 1-24 Puffs ity of mcg/actuati 00:00: every 6 Ben as on inhaler 00 (six) Medical hours as Branch needed for Wheezing, Shortness of Breath or Chest tightness. diphenoxyla Yes [id number] 1{tbl} Take 1 Univers te-atropine 1-24 tablet by ity of 2.5-0.025 00:00: mouth [place] mg tablet 00 every 6 Medical (six) Branch hours as needed for Other (diarrhea) . azithromyci 0 Yes [id number] 250mg Take 1 Univers n 250 mg 1-24 tablet by ity of tablet 00:00: mouth [place] 00 daily. Medical Take 500 Branch mg day 1, then 250 mg days 2 to 5. benzonatate 0 Yes [id number] 100mg Take 1 Univers (TESSALON 1-24 capsule by ity of PERLES) 100 00:00: mouth 3 [place] as mg capsule 00 (three) Medica l times Branch daily as needed for Cough. albuterol Yes [id number] 2{puff} Inhale 2 Univers 90 1-24 Puffs ity of mcg/actuati 00:00: every 6 Ben as on inhaler 00 (six) Medical hours as Branch needed for Wheezing, Shortness of Breath or Chest tightness. diphenoxyla Yes [id number] 1{tbl} Take 1 Univers te-atropine 1-24 tablet by ity of 2.5-0.025 00:00: mouth [place] mg tablet 00 every 6 Medical (six) Branch hours as needed for Other (diarrhea) . azithromyci Yes [id number] 250mg Take 1 Univers n 250 mg 1-24 tablet by ity of tablet 00:00: mouth [place] 00 daily. Medical Take 500 Branch mg day 1, then 250 mg days 2 to 5. benzonatate Yes [id number] 100mg Take 1 Univers (TESSALON 1-24 capsule by ity of PERLES) 100 00:00: mouth 3 [facility] as mg capsule 00 (three) Medica l times Branch daily as needed for Cough. albuterol Yes [id number] 2{puff} Inhale 2 Univers 90 1-24 Puffs ity of mcg/actuati 00:00: every 6 [facility] as on inhaler 00 (six) Medical hours as Branch needed for Wheezing, Shortness of Breath or Chest tightness. diphenoxyla 2020-0 Yes [id number] 1{tbl} Take 1 Univers te-atropine 1-24 tablet by ity of 2.5-0.025 00:00: mouth [place] mg tablet 00 every 6 Medical (six) Branch hours as needed for Other (diarrhea) . azithromyci 2020-0 Yes [id number] 250mg Take 1 Univers n 250 mg 1-24 tablet by ity of tablet 00:00: mouth [place] 00 daily. Medical Take 500 Branch mg day 1, then 250 mg days 2 to 5. benzonatate 0 Yes [id number] 100mg Take 1 Univers (TESSALON 1-24 capsule by ity of PERLES) 100 00:00: mouth 3 [place] as mg capsule 00 (three) Medica l times Branch daily as needed for Cough. albuterol 0 Yes [id number] 2{puff} Inhale 2 Univers 90 1-24 Puffs ity of mcg/actuati 00:00: every 6 [facility] as on inhaler 00 (six) Medical hours as Branch needed for Wheezing, Shortness of Breath or Chest tightness. diphenoxyla Yes [id number] 1{tbl} Take 1 Univers te-atropine 1-24 tablet by ity of 2.5-0.025 00:00: mouth [place] mg tablet 00 every 6 Medical (six) Branch hours as needed for Other (diarrhea) . azithromyci 0 Yes [id number] 250mg Take 1 Univers n 250 mg 1-24 tablet by ity of tablet 00:00: mouth [place] 00 daily. Medical Take 500 Branch mg day 1, then 250 mg days 2 to 5. benzonatate Yes [id number] 100mg Take 1 Univers (TESSALON 1-24 capsule by itpepe of MARYSE) 100 00:00: mouth 3 [place] as mg capsule 00 (three) Medica l times Branch daily as needed for Cough. albuterol 0 Yes [id number] 2{puff} Inhale 2 Univers 90 1-24 Puffs ity of mcg/actuati 00:00: every 6 [facility] as on inhaler 00 (six) Medical hours as Branch needed for Wheezing, Shortness of Breath or Chest tightness. diphenoxyla 0 Yes [id number] 1{tbl} Take 1 Univers te-atropine 1-24 tablet by ity of 2.5-0.025 00:00: mouth [place] mg tablet 00 every 6 Medical (six) Branch hours as needed for Other (diarrhea) . azithromyci 2020-0 Yes [id number] 250mg Take 1 Univers n 250 mg 1-24 tablet by ity of tablet 00:00: mouth [place] 00 daily. Medical Take 500 Branch mg day 1, then 250 mg days 2 to 5. benzonatate Yes [id number] 100mg Take 1 Univers (TESSALON 1-24 capsule by ity of [employer]) 100 00:00: mouth 3 [place] as mg capsule 00 (three) Medica l times Branch daily as needed for Cough. albuterol Yes [id number] 2{puff} Inhale 2 Univers 90 1-24 Puffs ity of mcg/actuati 00:00: every 6 [place] as on inhaler 00 (six) Medical hours as Branch needed for Wheezing, Shortness of Breath or Chest tightness. diphenoxyla Yes [id number] 1{tbl} Take 1 Univers te-atropine 1-24 tablet by ity of 2.5-0.025 00:00: mouth [place] mg tablet 00 every 6 Medical (six) Branch hours as needed for Other (diarrhea) . azithromyci Yes [id number] 250mg Take 1 Univers n 250 mg 1-24 tablet by ity of tablet 00:00: mouth [place] 00 daily. Medical Take 500 Branch mg day 1, then 250 mg days 2 to 5. benzonatate Yes [id number] 100mg Take 1 Univers (TESSALON 1-24 capsule by itpepe of [employer]) 100 00:00: mouth 3 [place] mg capsule 00 (three) Medica l times Branch daily as needed for Cough. albuterol Yes [id number] 2{puff} Inhale 2 Univers 90 1-24 Puffs ity of mcg/actuati 00:00: every 6 [place] as on inhaler 00 (six) Medical hours as Branch needed for Wheezing, Shortness of Breath or Chest tightness. diphenoxyla Yes [id number] 1{tbl} Take 1 Univers te-atropine 1-24 tablet by ity of 2.5-0.025 00:00: mouth [place] mg tablet 00 every 6 Medical (six) Branch hours as needed for Other (diarrhea) . diphenoxyla Yes 1{tbl} Take 1 [facility] te-atropine 1-24 tablet by [facility] ([place]) 00:00: mouth. 2.5-0.025 00 MG tablet losartan 50 Yes 100mg Take 100 U nivers mg [...] 41 daily. Medical Branch methylPREDN 2020-0 Yes [id number] 84mg Take 21 Univers ISolone 6-26 tablets by ity of (MEDROL, 00:00: mouth [place] JOHNNA,) 4 mg 00 SEE-INSTRU Med ical tablets CTIONS. Branch follow package directions methylPREDN 2020-0 Yes [id number] 84mg Take 21 Univers ISolone 6-26 tablets by ity of (MEDROL, 00:00: mouth [place] JOHNNA,) 4 mg 00 SEE-INSTRU Med ical tablets CTIONS. Branch follow package directions methylPREDN 2020-0 Yes [id number] 84mg Take 21 Univers ISolone 6-26 tablets by ity of (MEDROL, 00:00: mouth [place] JOHNNA,) 4 mg 00 SEE-INSTRU Med ical tablets CTIONS. Branch follow package directions methylPREDN 2020-0 Yes [id number] 84mg Take 21 Univers ISolone 6-26 tablets by ity of (MEDROL, 00:00: mouth [place] JOHNNA,) 4 mg 00 SEE-INSTRU Med ical tablets CTIONS. Branch follow package directions methylPREDN 2020-0 Yes [id number] 84mg Take 21 Univers ISolone 6-26 tablets by ity of (MEDROL, 00:00: mouth [place] JOHNNA,) 4 mg 00 SEE-INSTRU Med ical tablets CTIONS. Branch follow package directions methylPREDN 2020-0 Yes [id number] 84mg Take 21 Univers ISolone 6-26 tablets by ity of (MEDROL, 00:00: mouth [place] JOHNNA,) 4 mg 00 SEE-INSTRU Med ical tablets CTIONS. Branch follow package directions methylPREDN 2020-0 Yes [id number] 84mg Take 21 Univers ISolone 6-26 tablets by ity of (MEDROL, 00:00: mouth [place] JOHNNA,) 4 mg 00 SEE-INSTRU Med ical tablets CTIONS. Branch follow package directions methylPREDN 2020-0 Yes [id number] 84mg Take 21 Univers ISolone 6-26 tablets by ity of (MEDROL, 00:00: mouth [place] JOHNNA,) 4 mg 00 SEE-INSTRU Med ical tablets CTIONS. Branch follow package directions methylPREDN 2020-0 Yes [id number] 84mg Take 21 Univers ISolone 6-26 tablets by ity of (MEDROL, 00:00: mouth [place] JOHNNA,) 4 mg 00 SEE-INSTRU Med ical tablets CTIONS. Branch follow package directions methylPREDN 2020-0 Yes [id number] 84mg Take 21 Univers ISolone 6-26 tablets by ity of (MEDROL, 00:00: mouth [place] JOHNNA,) 4 mg 00 SEE-INSTRU Med ical tablets CTIONS. Branch follow package directions methylPREDN 2020-0 Yes [id number] 84mg Take 21 Univers ISolone 6-26 tablets by ity of (MEDROL, 00:00: mouth [place] JOHNNA,) 4 mg 00 SEE-INSTRU Med ical tablets CTIONS. Branch follow package directions methylPREDN 2020-0 Yes [id number] 84mg Take 21 Univers ISolone 6-26 tablets by ity of (MEDROL, 00:00: mouth [place] JOHNNA,) 4 mg 00 SEE-INSTRU Med ical tablets CTIONS. Branch follow package directions methylPREDN 2020-0 Yes [id number] 84mg Take 21 Univers ISolone 6-26 tablets by ity of (MEDROL, 00:00: mouth [place] JOHNNA,) 4 mg 00 SEE-INSTRU Med ical tablets CTIONS. Branch follow package directions methylPREDN 2020-0 Yes [id number] 84mg Take 21 Univers ISolone 6-26 tablets by ity of (MEDROL, 00:00: mouth [place] JOHNNA,) 4 mg 00 SEE-INSTRU Med ical tablets CTIONS. Branch follow package directions tiZANidine 2020-0 Yes 4mg Take 4 mg Un shira 4 mg tablet 6-19 by mouth 3 it y of 15:17: (three) [place] [address] times Medical daily. Branch topiramate 2020-0 Yes 200mg Take 200 Un shira (TOPAMAX) 6-19 mg by ity of 200 mg 15:17: mouth 2 [facility] 03 (two) Medical times Branch daily. oxyCODONE 2020-0 Yes Take by Univ ers 15 mg TbOr 6-19 mouth. ity of 15:17: [place] [address] Medical Branch SERTraline 2020-0 Yes 100mg Take 100 Un shira 100 mg 6-19 mg by ity of tablet 15:17: mouth 2 [place] 03 (two) Medical times Branch daily. Levothyroxi 2020-0 Yes Take by Un shira ne 125 mcg 6-19 mouth. ity of capsule 15:17: [place] [address] Medical Branch gabapentin 2020-0 Yes 800mg Take 800 Un shira 800 mg 6-19 mg by ity of tablet 15:17: mouth 3 [place] 03 (three) Medical times Branch daily. tiZANidine 2020-0 Yes 4mg Take 4 mg Un shira 4 mg tablet 6-19 by mouth 3 it y of 15:17: (three) [place] 03 times Medical daily. Branch topiramate 2020-0 Yes 200mg Take 200 Un shira (TOPAMAX) 6-19 mg by ity of 200 mg 15:17: mouth 2 [place] tablet 03 (two) Medical times Branch daily. oxyCODONE 2020-0 Yes Take by Univ ers 15 mg TbOr 6-19 mouth. ity of 15:17: [place] [facility] SERTraline 2020-0 Yes 100mg Take 100 Un shira 100 mg 6-19 mg by ity of tablet 15:17: mouth 2 [place] 03 (two) Medical times Branch daily. Levothyroxi 2020-0 Yes Take by Un shira ne 125 mcg 6-19 mouth. ity of capsule 15:17: [place] [address] Medical Branch gabapentin 2020-0 Yes 800mg Take 800 Un shira 800 mg 6-19 mg by ity of tablet 15:17: mouth 3 [place] (three) Medical times Branch daily. tiZANidine 2020-0 Yes 4mg Take 4 mg Un shira 4 mg tablet 6-19 by mouth 3 it y of 15:17: (three) [place] [address] times Medical daily. Branch topiramate 2020-0 Yes 200mg Take 200 Un shira (TOPAMAX) 6-19 mg by ity of 200 mg 15:17: mouth 2 [place] tablet 03 (two) Medical times Branch daily. oxyCODONE 2020-0 Yes Take by Univ ers 15 mg TbOr 6-19 mouth. ity of 15:17: [place] [address] Medical Branch SERTraline 2020-0 Yes 100mg Take 100 Un shira 100 mg 6-19 mg by ity of tablet 15:17: mouth 2 [place] 03 (two) Medical times Branch daily. Levothyroxi 2020-0 Yes Take by Un shira ne 125 mcg 6-19 mouth. ity of capsule 15:17: [place] [address] Medical Branch gabapentin 2020-0 Yes 800mg Take 800 Un shira 800 mg 6-19 mg by ity of tablet 15:17: mouth 3 [place] [address] (three) Medical times Branch daily. tiZANidine 2020-0 Yes 4mg Take 4 mg Un shira 4 mg tablet 6-19 by mouth 3 it y of 15:17: (three) [place] [address] times Medical daily. Branch topiramate 2020-0 Yes 200mg Take 200 Un shira (TOPAMAX) 6-19 mg by ity of 200 mg 15:17: mouth 2 [place] tablet 03 (two) Medical times Branch daily. oxyCODONE 2020-0 Yes Take by Univ ers 15 mg TbOr 6-19 mouth. ity of 15:17: [place] [address] Medical Branch SERTraline 2020-0 Yes 100mg Take 100 Un shira 100 mg 6-19 mg by ity of tablet 15:17: mouth 2 [place] (two) Medical times Branch daily. Levothyroxi 2020-0 Yes Take by Un shira ne 125 mcg 6-19 mouth. ity of capsule 15:17: [place] [address] Medical Branch gabapentin 2020-0 Yes 800mg Take 800 Un shira 800 mg 6-19 mg by ity of tablet 15:17: mouth 3 [place] (three) Medical times Branch daily. tiZANidine 2020-0 Yes 4mg Take 4 mg Un shira 4 mg tablet 6-19 by mouth 3 it y of 15:17: (three) [place] [address] times Medical daily. Branch topiramate 2020-0 Yes 200mg Take 200 Un shira (TOPAMAX) 6-19 mg by ity of 200 mg 15:17: mouth 2 [place] tablet 03 (two) Medical times Branch daily. SERTraline 2020-0 Yes 100mg Take 100 Un shira 100 mg 6-19 mg by ity of tablet 15:17: mouth 2 [place] [address] (two) Medical times Branch daily. Levothyroxi 2020-0 Yes Take by Un shira ne 125 mcg 6-19 mouth. ity of capsule 15:17: [place] [address] Medical Branch gabapentin 2020-0 Yes 800mg Take 800 Un shira 800 mg 6-19 mg by ity of tablet 15:17: mouth 3 [place] [address] (three) Medical times Branch daily. tiZANidine 2020-0 Yes 4mg Take 4 mg Un shira 4 mg tablet 6-19 by mouth 3 it y of 15:17: (three) [place] 03 times Medical daily. Branch topiramate 2020-0 Yes 200mg Take 200 Un shira (TOPAMAX) 6-19 mg by ity of 200 mg 15:17: mouth 2 [place] tablet 03 (two) Medical times Branch daily. SERTraline 2020-0 Yes 100mg Take 100 Un shira 100 mg 6-19 mg by ity of tablet 15:17: mouth 2 [place] [address] (two) Medical times Branch daily. Levothyroxi 2020-0 Yes Take by Un shira ne 125 mcg 6-19 mouth. ity of capsule 15:17: [place] [facility] Branch gabapentin 2020-0 Yes 800mg Take 800 Un shira 800 mg 6-19 mg by ity of tablet 15:17: mouth 3 [place] (three) Medical times Branch daily. tiZANidine 2020-0 Yes 4mg Take 4 mg Un shira 4 mg tablet 6-19 by mouth 3 it y of 15:17: (three) [place] [address] times Medical daily. Branch topiramate 2020-0 Yes 200mg Take 200 Un shira (TOPAMAX) 6-19 mg by ity of 200 mg 15:17: mouth 2 [place] tablet 03 (two) Medical times Branch daily. SERTraline 2020-0 Yes 100mg Take 100 Un shira 100 mg 6-19 mg by ity of tablet 15:17: mouth 2 [place] [address] (two) Medical times Branch daily. Levothyroxi 2020-0 Yes Take by Un shira ne 125 mcg 6-19 mouth. ity of capsule 15:17: [place] [address] Medical Branch gabapentin 2020-0 Yes 800mg Take 800 Un shira 800 mg 6-19 mg by ity of tablet 15:17: mouth 3 [place] [address] (three) Medical times Branch daily. tiZANidine 2020-0 Yes 4mg Take 4 mg Un shira 4 mg tablet 6-19 by mouth 3 it y of 15:17: (three) [place] [address] times Medical daily. Branch topiramate 2020-0 Yes 200mg Take 200 Un shira (TOPAMAX) 6-19 mg by ity of 200 mg 15:17: mouth 2 [place] tablet 03 (two) Medical times Branch daily. SERTraline 2020-0 Yes 100mg Take 100 Un shira 100 mg 6-19 mg by ity of tablet 15:17: mouth 2 [place] [address] (two) Medical times Branch daily. Levothyroxi 2020-0 Yes Take by Un shira ne 125 mcg 6-19 mouth. ity of capsule 15:17: [place] [address] Medical Branch gabapentin 2020-0 Yes 800mg Take 800 Un shira 800 mg 6-19 mg by ity of tablet 15:17: mouth 3 [place] [address] (three) Medical times Branch daily. tiZANidine 2020-0 Yes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 focal consolidation, pleural effusion or pneumothorax isseen. The cardiac silhouette is normal in size.No acute bony abnormality.IMPRESSIONRight midlung linear atele ctasis.Preliminary Report Dictated by Resident: Doreen Degroot MD., have reviewed this study and agree with theabove report. [facility]
--- NOTE | 2022-02-06 19:48 | ER ---
Nurse's Notes [facility] Name: Shelli Fonseca Age: 56 yrs Sex: Female : 1965 Arrival Date: 02/06/2022 Time: 18:40 Bed Waiting Private MD: Oscar Gandara R Diagnosis: ED Course: 02/06 18:40 Patient arrived in ED. ds1 18:40 Oscar Gandara MD is Private Physician. ds1 Administered Medications: No medications were administered Outcome: 19:47 Patient left the ED. tw5 Signatures: Sri Ruano ds1 Paola Ashford tw5
== END 2022-02-06 19:47 | disposition left against medical advice (07) ==
LOC: ER 18:39
DX: Z02.9 Encounter for administrative examinations, unspecified (principal)

== ENCOUNTER 2022-02-06 19:53 | Emergency (ER) | payer OTHER ==
--- OUTSIDE RECORDS SUMMARY | 2022-02-06 19:58 | XMS REPORT | Continuity of Care Document ---
:1965 Author Organization [facility] t Address [address] [place] [address] [address]. [address]. [address] [place] [address] Care Team Providers Name Role Phone Blayne [...] Clinician Unavailable Sosa MARTÍNEZ Attending Clinician Unavailable [facility] Attending Clinician Unavailable Yolis Chandler Attending Clinician Yolis LOPEZ Attending Clinician Unavailable NATHEN MATHEW Attending Clinician Unavailable Nathen Barnett Attending Clinician MD BRAYAN MITCHELL Admitting Clinician Unavailable NATHEN MATHEW Admitting Clinician Unavailable Payers Payer Name Policy Type Policy Number Effective Date Expiration Date S ource MEDICARE PART A AND [id number] 2008 B 00:00:00 [employer] [id number] 2021 BEHAVIORAL 00:00:00 SOLUTIONS MEDICARE PART A \T\ [id number] 2006 B 00:00:00 Problems Condition Condition Condition Status Onset Resolution Last Treating Co mments Source Name Details Category Date Date Treatment Clinician Date No known No known Disease Unive rs active active ity of problems problems [facility] Allergies, Adverse Reactions, Alerts Allergy Allergy Status [...] [facility] use Exposure to Not sure [facility] SARS-CoV-2 (event) Tobacco use and 2022-01-13 2022-01-13 Smokeless tobacco [facility] exposure 00:00:00 00:00:00 non-user Sex Ass[birth year] At [birth year] F [facility] 00:00:00 00:00:00 Smoking Status Start Date Stop Date Source Tobacco smoking consumption unknown [facility] Smokes tobacco daily 2022-01-13 00:00:00 [facility] [...] mg TbOr 5-04 mouth. ity of 20:08: [address] oxyCODONE Yes Take by Univ ers 15 mg TbOr 5-04 mouth. ity of 20:08: [address] oxyCODONE Yes Take by Univ ers 15 mg TbOr 5-04 mouth. ity of 20:08: [address] oxyCODONE Yes Take by Univ ers 15 mg TbOr 5-04 mouth. ity of 20:08: [address] oxyCODONE Yes Take by Univ ers 15 mg TbOr 5-04 mouth. ity of 20:08: [address] oxyCODONE Yes Take by Univ ers 15 mg TbOr 5-04 mouth. ity of 20:08: [address] oxyCODONE Yes Take by Univ ers 15 mg TbOr 5-04 mouth. ity of 20:08: [address] oxyCODONE Yes Take by Univ ers 15 mg TbOr 5-04 mouth. ity of 20:08: [address] oxyCODONE Yes Take by Univ ers 15 mg TbOr 5-04 mouth. ity of 20:08: [address] hydromorpho Yes Pain pump U nivers ne HCl 5-04 ity of (DILAUDID 19:45: [place] [address] hydromorpho Yes Pain pump U nivers [...] HCl 5-04 ity of (DILAUDID 19:45: [facility]) 11 Medical Branch hydromorpho Yes Pain pump U nivers ne HCl 5-04 ity of (DILAUDID 19:45: [place] [facility]) 11 Medical Branch azithromyci Yes [id number] 250mg Take 1 [facility] n 250 mg 1-24 tablet by ity of tablet 00:00: mouth [place] 00 daily. Medical Take 500 Branch mg day 1, then 250 mg days 2 to 5. benzonatate Yes [id number] 100mg Take 1 Univers (TESSALON 1-24 capsule by ity of MARYSE) 100 00:00: mouth 3 [facility] as mg capsule 00 (three) Medica l times Branch daily as needed for Cough. albuterol Yes [id number] 2{puff} Inhale 2 Univers 90 1-24 Puffs ity of mcg/actuati 00:00: every 6 [facility] as on inhaler 00 (six) Medical hours as Branch needed for Wheezing, Shortness of Breath or Chest tightness. diphenoxyla Yes [id number] 1{tbl} Take 1 Univers te-atropine 1-24 tablet by ity of 2.5-0.025 00:00: mouth [place] mg tablet 00 every 6 Medical (six) Branch hours as needed for Other (diarrhea) . azithromyci 0 Yes [id number] 250mg Take 1 [facility] n 250 mg 1-24 tablet by ity of tablet 00:00: mouth [place] 00 daily. Medical Take 500 Branch mg day 1, then 250 mg days 2 to 5. benzonatate 0 Yes [id number] 100mg Take 1 Univers (TESSALON 1-24 capsule by ity of PERLES) 100 00:00: mouth 3 [place] [facility] mg capsule 00 (three) Medica l times Branch daily as needed for Cough. albuterol 0 Yes [id number] 2{puff} Inhale 2 Univers 90 1-24 Puffs ity of mcg/actuati 00:00: every 6 [facility] as on inhaler 00 (six) Medical hours as Branch needed for Wheezing, Shortness of Breath or Chest tightness. diphenoxyla Yes [id number] 1{tbl} Take 1 Univers te-atropine 1-24 tablet by ity of 2.5-0.025 00:00: mouth [place] mg tablet 00 every 6 Medical (six) Branch hours as needed for Other (diarrhea) . azithromyci 0 Yes [id number] 250mg Take 1 Univers n 250 mg 1-24 tablet by ity of tablet 00:00: mouth [place] 00 daily. Medical Take 500 Branch mg day 1, then 250 mg days 2 to 5. benzonatate 0 Yes [id number] 100mg Take 1 Univers (TESSALON 1-24 capsule by ity of PERLES) 100 00:00: mouth 3 [facility] mg capsule 00 (three) Medica l times Branch daily as needed for Cough. albuterol 0 Yes [id number] 2{puff} Inhale 2 Univers 90 1-24 Puffs ity of mcg/actuati 00:00: every 6 [facility] as on inhaler 00 (six) Medical hours as Branch needed for Wheezing, Shortness of Breath or Chest tightness. diphenoxyla 0 Yes [id number] 1{tbl} Take 1 Univers te-atropine 1-24 tablet by ity of 2.5-0.025 00:00: mouth [place] mg tablet 00 every 6 Medical (six) Branch hours as needed for Other (diarrhea) . azithromyci Yes [id number] 250mg Take 1 [facility] n 250 mg 1-24 tablet by ity of tablet 00:00: mouth [place] 00 daily. Medical Take 500 Branch mg day 1, then 250 mg days 2 to 5. benzonatate Yes [id number] 100mg Take 1 Univers (TESSALON 1-24 capsule by ity of PERLES) 100 00:00: mouth 3 [place] [facility] mg capsule 00 (three) Medica l times Branch daily as needed for Cough. albuterol Yes [id number] 2{puff} Inhale 2 Univers 90 1-24 Puffs ity of mcg/actuati 00:00: every 6 [facility] as on inhaler 00 (six) Medical hours as Branch needed for Wheezing, Shortness of Breath or Chest tightness. diphenoxyla Yes [id number] 1{tbl} Take 1 Univers te-atropine 1-24 tablet by ity of 2.5-0.025 00:00: mouth [place] mg tablet 00 every 6 Medical (six) Branch hours as needed for Other (diarrhea) . azithromyci Yes [id number] 250mg Take 1 [facility] n 250 mg 1-24 tablet by ity of tablet 00:00: mouth [place] 00 daily. Medical Take 500 Branch mg day 1, then 250 mg days 2 to 5. benzonatate Yes [id number] 100mg Take 1 Univers (TESSALON 1-24 capsule by ity of PERLES) 100 00:00: mouth 3 [place] [facility] mg capsule 00 (three) Medica l times Branch daily as needed for Cough. albuterol Yes [id number] 2{puff} Inhale 2 Univers 90 1-24 Puffs ity of mcg/actuati 00:00: every 6 [facility] as on inhaler 00 (six) Medical hours as Branch needed for Wheezing, Shortness of Breath or Chest tightness. diphenoxyla Yes [id number] 1{tbl} Take 1 Univers te-atropine 1-24 tablet by ity of 2.5-0.025 00:00: mouth [place] mg tablet 00 every 6 Medical (six) Branch hours as needed for Other (diarrhea) . azithromyci 0 Yes [id number] 250mg Take 1 Univers n 250 mg 1-24 tablet by ity of tablet 00:00: mouth [place] 00 daily. Medical Take 500 Branch mg day 1, then 250 mg days 2 to 5. benzonatate 0 Yes [id number] 100mg Take 1 Univers (TESSALON 1-24 capsule by ity of PERLES) 100 00:00: mouth 3 [place] [facility] mg capsule 00 (three) Medica l times Branch daily as needed for Cough. albuterol Yes [id number] 2{puff} Inhale 2 Univers 90 1-24 Puffs ity of mcg/actuati 00:00: every 6 [facility] as on inhaler 00 (six) Medical hours as Branch needed for Wheezing, Shortness of Breath or Chest tightness. diphenoxyla Yes [id number] 1{tbl} Take 1 Univers te-atropine 1-24 tablet by ity of 2.5-0.025 00:00: mouth [place] mg tablet 00 every 6 Medical (six) Branch hours as needed for Other (diarrhea) . azithromyci Yes [id number] 250mg Take 1 [facility] n 250 mg 1-24 tablet by ity of tablet 00:00: mouth [place] 00 daily. Medical Take 500 Branch mg day 1, then 250 mg days 2 to 5. benzonatate Yes [id number] 100mg Take 1 Univers (TESSALON 1-24 capsule by ity of PERLES) 100 00:00: mouth 3 [place] [facility] mg capsule 00 (three) Medica l times Branch daily as needed for Cough. albuterol Yes [id number] 2{puff} Inhale 2 Univers 90 1-24 Puffs ity of mcg/actuati 00:00: every 6 [facility] as on inhaler 00 (six) Medical hours as Branch needed for Wheezing, Shortness of Breath or Chest tightness. diphenoxyla 2020-0 Yes [id number] 1{tbl} Take 1 Univers te-atropine 1-24 tablet by ity of 2.5-0.025 00:00: mouth [place] mg tablet 00 every 6 Medical (six) Branch hours as needed for Other (diarrhea) . azithromyci 2020-0 Yes [id number] 250mg Take 1 Univers n 250 mg 1-24 tablet by ity of tablet 00:00: mouth [place] 00 daily. Medical Take 500 Branch mg day 1, then 250 mg days 2 to 5. benzonatate 0 Yes [id number] 100mg Take 1 Univers (TESSALON 1-24 capsule by ity of PERLES) 100 00:00: mouth 3 [place] [facility] mg capsule 00 (three) Medica l times Branch daily as needed for Cough. albuterol 0 Yes [id number] 2{puff} Inhale 2 Univers 90 1-24 Puffs ity of mcg/actuati 00:00: every 6 [facility] as on inhaler 00 (six) Medical hours as Branch needed for Wheezing, Shortness of Breath or Chest tightness. diphenoxyla Yes [id number] 1{tbl} Take 1 [facility] te-atropine 1-24 tablet by ity of 2.5-0.025 00:00: mouth [place] mg tablet 00 every 6 Medical (six) Branch hours as needed for Other (diarrhea) . azithromyci 0 Yes [id number] 250mg Take 1 [facility] n 250 mg 1-24 tablet by ity of tablet 00:00: mouth [place] 00 daily. Medical Take 500 Branch mg day 1, then 250 mg days 2 to 5. benzonatate Yes [id number] 100mg Take 1 Univers (TESSALON 1-24 capsule by itpepe of MARYSE) 100 00:00: mouth 3 [place] [facility] mg capsule 00 (three) Medica l times Branch daily as needed for Cough. albuterol 0 Yes [id number] 2{puff} Inhale 2 Univers 90 1-24 Puffs ity of mcg/actuati 00:00: every 6 [facility] as on inhaler 00 (six) Medical hours as Branch needed for Wheezing, Shortness of Breath or Chest tightness. diphenoxyla 0 Yes [id number] 1{tbl} Take 1 Univers te-atropine 1-24 tablet by ity of 2.5-0.025 00:00: mouth [place] mg tablet 00 every 6 Medical (six) Branch hours as needed for Other (diarrhea) . azithromyci 2020-0 Yes [id number] 250mg Take 1 Univers n 250 mg 1-24 tablet by ity of tablet 00:00: mouth [place] 00 daily. Medical Take 500 Branch mg day 1, then 250 mg days 2 to 5. benzonatate Yes [id number] 100mg Take 1 Univers (TESSALON 1-24 capsule by ity of [employer]) 100 00:00: mouth 3 [facility] mg capsule 00 (three) Medica l times Branch daily as needed for Cough. albuterol Yes [id number] 2{puff} Inhale 2 [facility] 90 1-24 Puffs ity of mcg/actuati 00:00: every 6 [facility] as on inhaler 00 (six) Medical hours as Branch needed for Wheezing, Shortness of Breath or Chest tightness. diphenoxyla Yes [id number] 1{tbl} Take 1 [facility] te-atropine 1-24 tablet by ity of 2.5-0.025 00:00: mouth [place] mg tablet 00 every 6 Medical (six) Branch hours as needed for Other (diarrhea) . azithromyci Yes [id number] 250mg Take 1 [facility] n 250 mg 1-24 tablet by ity of tablet 00:00: mouth [place] 00 daily. Medical Take 500 Branch mg day 1, then 250 mg days 2 to 5. benzonatate Yes [id number] 100mg Take 1 Univers (TESSALON 1-24 capsule by itpepe of [employer]) 100 00:00: mouth 3 [facility] mg capsule 00 (three) Medica l times Branch daily as needed for Cough. albuterol Yes [id number] 2{puff} Inhale 2 Univers 90 1-24 Puffs ity of mcg/actuati 00:00: every 6 [facility] as on inhaler 00 (six) Medical hours as Branch needed for Wheezing, Shortness of Breath or Chest tightness. diphenoxyla Yes [id number] 1{tbl} Take 1 [facility] te-atropine 1-24 tablet by ity of 2.5-0.025 00:00: mouth [place] mg tablet 00 every 6 Medical (six) Branch hours as needed for Other (diarrhea) . diphenoxyla Yes 1{tbl} Take 1 [facility] te-atropine 1-24 tablet by [facility] ([facility]) 00:00: mouth. 2.5-0.025 00 MG tablet [...] 41 daily. Medical Branch methylPREDN 2020-0 Yes [id number] 84mg Take 21 Univers ISolone 6-26 tablets by ity of (MEDROL, 00:00: mouth [place] JOHNNA,) 4 mg 00 SEE-INSTRU Med ical tablets CTIONS. Branch follow package directions methylPREDN 2020-0 Yes [id number] 84mg Take 21 [facility] ISolone 6-26 tablets by ity of (MEDROL, 00:00: mouth [place] JOHNNA,) 4 mg 00 SEE-INSTRU Med ical tablets CTIONS. Branch follow package directions methylPREDN 2020-0 Yes [id number] 84mg Take 21 [facility] ISolone 6-26 tablets by ity of (MEDROL, 00:00: mouth [place] JOHNNA,) 4 mg 00 SEE-INSTRU Med ical tablets CTIONS. Branch follow package directions methylPREDN 2020-0 Yes [id number] 84mg Take 21 [facility] ISolone 6-26 tablets by ity of (MEDROL, 00:00: mouth [place] JOHNNA,) 4 mg 00 SEE-INSTRU Med ical tablets CTIONS. Branch follow package directions methylPREDN 2020-0 Yes [id number] 84mg Take 21 [facility] ISolone 6-26 tablets by ity of (MEDROL, 00:00: mouth [place] JOHNNA,) 4 mg 00 SEE-INSTRU Med ical tablets CTIONS. Branch follow package directions methylPREDN 2020-0 Yes [id number] 84mg Take 21 [facility] ISolone 6-26 tablets by ity of (MEDROL, 00:00: mouth [place] JOHNNA,) 4 mg 00 SEE-INSTRU Med ical tablets CTIONS. Branch follow package directions methylPREDN 2020-0 Yes [id number] 84mg Take 21 [facility] ISolone 6-26 tablets by ity of (MEDROL, 00:00: mouth [place] JOHNNA,) 4 mg 00 SEE-INSTRU Med ical tablets CTIONS. Branch follow package directions methylPREDN 2020-0 Yes [id number] 84mg Take 21 [facility] ISolone 6-26 tablets by ity of (MEDROL, 00:00: mouth [place] JOHNNA,) 4 mg 00 SEE-INSTRU Med ical tablets CTIONS. Branch follow package directions methylPREDN 2020-0 Yes [id number] 84mg Take 21 [facility] ISolone 6-26 tablets by ity of (MEDROL, 00:00: mouth [place] JOHNNA,) 4 mg 00 SEE-INSTRU Med ical tablets CTIONS. Branch follow package directions methylPREDN 2020-0 Yes [id number] 84mg Take 21 [facility] ISolone 6-26 tablets by ity of (MEDROL, 00:00: mouth [place] JOHNNA,) 4 mg 00 SEE-INSTRU Med ical tablets CTIONS. Branch follow package directions methylPREDN 2020-0 Yes [id number] 84mg Take 21 [facility] ISolone 6-26 tablets by ity of (MEDROL, 00:00: mouth [place] JOHNNA,) 4 mg 00 SEE-INSTRU Med ical tablets CTIONS. Branch follow package directions methylPREDN 2020-0 Yes [id number] 84mg Take 21 [facility] ISolone 6-26 tablets by ity of (MEDROL, 00:00: mouth [place] JOHNNA,) 4 mg 00 SEE-INSTRU Med ical tablets CTIONS. Branch follow package directions methylPREDN 2020-0 Yes [id number] 84mg Take 21 [facility] ISolone 6-26 tablets by ity of (MEDROL, 00:00: mouth [place] JOHNNA,) 4 mg 00 SEE-INSTRU Med ical tablets CTIONS. Branch follow package directions methylPREDN 2020-0 Yes [id number] 84mg Take 21 [facility] ISolone 6-26 tablets by ity of (MEDROL, 00:00: mouth [place] JOHNNA,) 4 mg 00 SEE-INSTRU Med ical tablets CTIONS. Branch follow package directions tiZANidine 2020-0 Yes 4mg Take 4 mg Un shira 4 mg tablet 6-19 by mouth 3 it y of 15:17: (three) [place] [address] times Medical daily. Branch topiramate 2020-0 Yes 200mg Take 200 Un shira (TOPAMAX) 6-19 mg by ity of 200 mg 15:17: mouth 2 [facility] 03 (two) Medical times Branch daily. oxyCODONE 2020-0 Yes Take by Univ ers 15 mg TbOr 6-19 mouth. ity of 15:17: [place] [address] Medical Branch SERTraline 2020-0 Yes 100mg Take 100 Un shira 100 mg 6-19 mg by ity of tablet 15:17: mouth 2 [place] 03 (two) Medical times Branch daily. Levothyroxi 2020-0 Yes Take by Un shira ne 125 mcg 6-19 mouth. ity of capsule 15:17: [place] [address] Medical Branch gabapentin 2020-0 Yes 800mg Take 800 Un shira 800 mg 6-19 mg by ity of tablet 15:17: mouth 3 [place] 03 (three) Medical times Branch daily. tiZANidine [...] mg TbOr 6-19 mouth. ity of 15:17: [place] [facility] SERTraline 2020-0 Yes 100mg Take 100 Un shira 100 mg 6-19 mg by ity of tablet 15:17: mouth 2 [place] 03 (two) Medical times Branch daily. Levothyroxi 2020-0 Yes Take by Un shira ne 125 mcg 6-19 mouth. ity of capsule 15:17: [place] [address] Medical Branch gabapentin 2020-0 Yes 800mg Take 800 Un shira 800 mg 6-19 mg by ity of tablet 15:17: mouth 3 [place] (three) Medical times Branch daily. tiZANidine 2020-0 Yes 4mg Take 4 mg Un shira 4 mg tablet 6-19 by mouth 3 it y of 15:17: (three) [place] [address] times Medical daily. Branch topiramate 2020-0 Yes 200mg Take 200 Un shira (TOPAMAX) 6-19 mg by ity of 200 mg 15:17: mouth 2 [place] tablet 03 (two) Medical times Branch daily. oxyCODONE 2020-0 Yes Take by Univ ers 15 mg TbOr 6-19 mouth. ity of 15:17: [place] [address] Medical Branch SERTraline 2020-0 Yes 100mg Take 100 Un shira 100 mg 6-19 mg by ity of tablet 15:17: mouth 2 [place] 03 (two) Medical times Branch daily. Levothyroxi 2020-0 Yes Take by Un shira ne 125 mcg 6-19 mouth. ity of capsule 15:17: [place] [address] Medical Branch gabapentin 2020-0 Yes 800mg Take 800 Un shira 800 mg 6-19 mg by ity of tablet 15:17: mouth 3 [place] [address] (three) Medical times Branch daily. tiZANidine 2020-0 Yes 4mg Take 4 mg Un shira 4 mg tablet 6-19 by mouth 3 it y of 15:17: (three) [place] [address] times Medical daily. Branch topiramate 2020-0 Yes 200mg Take 200 Un shira (TOPAMAX) 6-19 mg by ity of 200 mg 15:17: mouth 2 [place] tablet 03 (two) Medical times Branch daily. oxyCODONE 2020-0 Yes Take by Univ ers 15 mg TbOr 6-19 mouth. ity of 15:17: [place] [address] Medical Branch SERTraline 2020-0 Yes 100mg Take 100 Un shira 100 mg 6-19 mg by ity of tablet 15:17: mouth 2 [place] (two) Medical times Branch daily. Levothyroxi 2020-0 Yes Take by Un shira ne 125 mcg 6-19 mouth. ity of capsule 15:17: [place] [address] Medical Branch gabapentin 2020-0 Yes 800mg Take 800 Un shira 800 mg 6-19 mg by ity of tablet 15:17: mouth 3 [place] (three) Medical times Branch daily. tiZANidine 2020-0 Yes 4mg Take 4 mg Un shira 4 mg tablet 6-19 by mouth 3 it y of 15:17: (three) [place] [address] times Medical daily. Branch topiramate 2020-0 Yes 200mg Take 200 Un shira (TOPAMAX) 6-19 mg by ity of 200 mg 15:17: mouth 2 [place] tablet 03 (two) Medical times Branch daily. SERTraline 2020-0 Yes 100mg Take 100 Un shira 100 mg 6-19 mg by ity of tablet 15:17: mouth 2 [place] [address] (two) Medical times Branch daily. Levothyroxi 2020-0 Yes Take by Un shira ne 125 mcg 6-19 mouth. ity of capsule 15:17: [place] [address] Medical Branch gabapentin 2020-0 Yes 800mg Take 800 Un shira 800 mg 6-19 mg by ity of tablet 15:17: mouth 3 [place] [address] (three) Medical times Branch daily. tiZANidine 2020-0 Yes 4mg Take 4 mg Un shira 4 mg tablet 6-19 by mouth 3 it y of 15:17: (three) [place] 03 times Medical daily. Branch topiramate 2020-0 Yes 200mg Take 200 Un shira (TOPAMAX) 6-19 mg by ity of 200 mg 15:17: mouth 2 [place] tablet 03 (two) Medical times Branch daily. SERTraline 2020-0 Yes 100mg Take 100 Un shira 100 mg 6-19 mg by ity of tablet 15:17: mouth 2 [place] [address] (two) Medical times Branch daily. Levothyroxi 2020-0 Yes Take by Un shira ne 125 mcg 6-19 mouth. ity of capsule 15:17: [place] [facility] gabapentin 2020-0 Yes 800mg Take 800 Un shira 800 mg 6-19 mg by ity of tablet 15:17: mouth 3 [place] (three) Medical times Branch daily. tiZANidine 2020-0 Yes 4mg Take 4 mg Un shira 4 mg tablet 6-19 by mouth 3 it y of 15:17: (three) [place] [address] times Medical daily. Branch topiramate 2020-0 Yes 200mg Take 200 Un shira (TOPAMAX) 6-19 mg by ity of 200 mg 15:17: mouth 2 [place] tablet 03 (two) Medical times Branch daily. SERTraline 2020-0 Yes 100mg Take 100 Un shira 100 mg 6-19 mg by ity of tablet 15:17: mouth 2 [place] [address] (two) Medical times Branch daily. Levothyroxi 2020-0 Yes Take by Un shira ne 125 mcg 6-19 mouth. ity of capsule 15:17: [place] [address] Medical Branch gabapentin 2020-0 Yes 800mg Take 800 Un shira 800 mg 6-19 mg by ity of tablet 15:17: mouth 3 [place] [address] (three) Medical times Branch daily. tiZANidine 2020-0 Yes 4mg Take 4 mg Un shira 4 mg tablet 6-19 by mouth 3 it y of 15:17: (three) [place] [address] times Medical daily. Branch topiramate 2020-0 Yes 200mg Take 200 Un shira (TOPAMAX) 6-19 mg by ity of 200 mg 15:17: mouth 2 [place] tablet 03 (two) Medical times Branch daily. SERTraline 2020-0 Yes 100mg Take 100 Un shira 100 mg 6-19 mg by ity of tablet 15:17: mouth 2 [place] [address] (two) Medical times Branch daily. Levothyroxi 2020-0 Yes Take by Un shira ne 125 mcg 6-19 mouth. ity of capsule 15:17: [place] [address] Medical Branch gabapentin 2020-0 Yes 800mg Take 800 Un shira 800 mg 6-19 mg by ity of tablet 15:17: mouth 3 [place] [address] (three) Medical times Branch daily. tiZANidine 2020-0 Yes 4mg Take 4 mg Un shira 4 mg tablet 6-19 by mouth 3 it y of 15:17: (three) [place] 03 times Medical daily. Branch topiramate 2020-0 Yes 200mg Take 200 Un shira (TOPAMAX) 6-19 mg by ity of 200 mg 15:17: mouth 2 [place] tablet 03 (two) Medical times Branch daily. SERTraline 2020-0 Yes 100mg Take 100 Un shira 100 mg 6-19 mg by ity of tablet 15:17: mouth 2 [place] 03 (two) Medical times Branch daily. Levothyroxi 2020-0 Yes Take by Un shira ne 125 mcg 6-19 mouth. ity of capsule 15:17: [place] [facility] gabapentin 2020-0 Yes 800mg Take 800 Un shira 800 mg 6-19 mg by ity of tablet 15:17: mouth 3 [place] (three) Medical times Branch daily. tiZANidine 2020-0 Yes 4mg Take 4 mg Un shira 4 mg tablet 6-19 by mouth 3 it y of 15:17: (three) [place] 03 times Medical daily. Branch topiramate 2020-0 Yes 200mg Take 200 Un shira (TOPAMAX) 6-19 mg by ity of 200 mg 15:17: mouth 2 [place] tablet 03 (two) Medical times Branch daily. SERTraline 2020-0 Yes 100mg Take 100 Un shira 100 mg 6-19 mg by ity of tablet 15:17: mouth 2 [place] (two) Medical times Branch daily. Levothyroxi 2020-0 Yes Take by Un shira ne 125 mcg 6-19 mouth. ity of capsule 15:17: [place] [facility] gabapentin 2020-0 Yes 800mg Take 800 Un shira 800 mg 6-19 mg by ity of tablet 15:17: mouth 3 [place] (three) Medical times Branch daily. tiZANidine 2020-0 Yes 4mg Take 4 mg Un shira 4 mg tablet 6-19 by mouth 3 it y of 15:17: (three) [place] 03 times Medical daily. Branch topiramate 2020-0 Yes 200mg Take 200 Un shira (TOPAMAX) 6-19 mg by ity of 200 mg 15:17: mouth 2 [place] tablet 03 (two) Medical times Branch daily. SERTraline 2020-0 Yes 100mg Take 100 Un shira 100 mg 6-19 mg by ity of tablet 15:17: mouth 2 [place] 03 (two) Medical times Branch daily. Levothyroxi 2020-0 Yes Take by Un shira ne 125 mcg 6-19 mouth. ity of capsule 15:17: [place] [facility] gabapentin 2020-0 Yes 800mg Take 800 Un shira 800 mg 6-19 mg by ity of tablet 15:17: mouth 3 [place] (three) Medical times Branch daily. tiZANidine 2020-0 Yes 4mg Take 4 mg Un shira 4 mg tablet 6-19 by mouth 3 it y of 15:17: (three) [place] [address] times Medical daily. Branch topiramate 2020-0 Yes 200mg Take 200 Un shira (TOPAMAX) 6-19 mg by ity of 200 mg 15:17: mouth 2 [place] tablet 03 (two) Medical times Branch daily. SERTraline 2020-0 Yes 100mg Take 100 Un shira 100 mg 6-19 mg by ity of tablet 15:17: mouth 2 [place] [address] (two) Medical times Branch daily. Levothyroxi 2020-0 Yes Take by Un shira ne 125 mcg 6-19 mouth. ity of capsule 15:17: [place] [facility] Branch gabapentin 2020-0 Yes 800mg Take 800 Un shira 800 mg 6-19 mg by ity of tablet 15:17: mouth 3 [place] [address] (three) Medical times Branch daily. tiZANidine 2020-0 Yes 4mg Take 4 mg Un shira 4 mg tablet 6-19 by mouth 3 it y of 15:17: (three) [place] [address] times Medical daily. Branch topiramate 2020-0 Yes 200mg Take 200 Un shira (TOPAMAX) 6-19 mg by ity of 200 mg 15:17: mouth 2 [place] tablet 03 (two) Medical times Branch daily. SERTraline 2020-0 Yes 100mg Take 100 Un shira 100 mg 6-19 mg by ity of tablet 15:17: mouth 2 [place] [address] (two) Medical times Branch daily. Levothyroxi 2020-0 Yes Take by Un shira ne 125 mcg 6-19 mouth. ity of capsule 15:17: [place] [address] Medical Branch gabapentin 2020-0 Yes 800mg Take 800 Un shira 800 mg 6-19 mg by ity of tablet 15:17: mouth 3 [place] [address] (three) Medical times Branch daily. tiZANidine 2020-0 Yes 4mg Take 4 mg Un shira 4 mg tablet 6-19 by mouth 3 it y of 15:17: (three) [place] [address] times Medical daily. Branch topiramate 2020-0 Yes 200mg Take 200 Un shira (TOPAMAX) 6-19 mg by ity of 200 mg 15:17: mouth 2 [place] tablet 03 (two) Medical times Branch daily. oxyCODONE 2020-0 Yes Take by Univ ers 15 mg TbOr 6-19 mouth. ity of 15:17: [place] [address] Medical Branch SERTraline 2020-0 Yes 100mg Take 100 Un shira 100 mg 6-19 mg by ity of tablet 15:17: mouth 2 [place] 03 (two) Medical times Branch daily. losartan 50 2020-0 Yes 50mg Take 50 mg Univers mg tablet 6-19 by mouth ity of 15:17: daily. [place] [address] Medical Branch Levothyroxi 2020-0 Yes Take by Un shira ne 125 mcg 6-19 mouth. ity of capsule 15:17: [place] [address] Medical Branch gabapentin 2020-0 Yes 800mg Take 800 Un shira 800 mg 6-19 mg by ity of tablet 15:17: mouth 3 [place] [address] (three) Medical times Branch daily. tiZANidine 2020-0 Yes 4mg Take 4 mg Un shira 4 mg tablet 6-19 by mouth 3 it y of 15:17: (three) [place] [address] times Medical daily. Branch topiramate 2020-0 Yes 200mg Take 200 Un shira (TOPAMAX) 6-19 mg by ity of 200 mg 15:17: mouth 2 [place] tablet 03 (two) Medical times Branch daily. oxyCODONE 2020-0 Yes Take by Univ ers 15 mg TbOr 6-19 mouth. ity of 15:17: [place] [address] Medical Branch SERTraline 2020-0 Yes 100mg Take 100 Un shira 100 mg 6-19 mg by ity of tablet 15:17: mouth 2 [place] 03 (two) Medical times Branch daily. Levothyroxi 2020-0 Yes Take by Un shira ne 125 mcg 6-19 mouth. ity of capsule 15:17: [place] [address] Medical Branch gabapentin 2020-0 Yes 800mg Take 800 Un shira 800 mg 6-19 mg by ity of tablet 15:17: mouth 3 [place] [address] (three) Medical times Branch daily. benzonatate 2020-0 Yes [id number] 100mg Take 1 Univers (TESSALON 6-19 capsule by ity of PERLES) 100 00:00: mouth 3 Ben as mg capsule 00 (three) Medica l times Branch daily as needed for Cough. benzonatate 2020-0 Yes [id number] 100mg Take 1 Univers (TESSALON 6-19 capsule by ity of PERLES) 100 00:00: mouth 3 Ben as mg capsule 00 (three) Medica l times Branch daily as needed for Cough. benzonatate 2020-0 Yes [id number] 100mg Take 1 Univers (TESSALON 6-19 capsule by ity of PERLES) 100 00:00: mouth 3 Ben as mg capsule 00 (three) Medica l times Branch daily as needed for Cough. benzonatate 2020-0 Yes [id number] 100mg Take 1 Univers (TESSALON 6-19 capsule by ity of PERLES) 100 00:00: mouth 3 [place] as mg capsule 00 (three) Medica l times Branch daily as needed for Cough. benzonatate 2020-0 Yes [id number] 100mg Take 1 Univers (TESSALON 6-19 capsule by ity of PERLES) 100 00:00: mouth 3 Ben as mg capsule 00 (three) Medica l times Branch daily as needed for Cough. benzonatate 2020-0 Yes [id number] 100mg Take 1 Univers (TESSALON 6-19 capsule by ity of PERLES) 100 00:00: mouth 3 Ben as mg capsule 00 (three) Medica l times Branch daily as needed for Cough. benzonatate 2020-0 Yes [id number] 100mg Take 1 Univers (TESSALON 6-19 capsule by ity of PERLES) 100 00:00: mouth 3 Ben as mg capsule 00 (three) Medica l times Branch daily as needed for Cough. benzonatate 2020-0 Yes [id number] 100mg Take 1 Univers (TESSALON 6-19 capsule by ity of PERLES) 100 00:00: mouth 3 Ben as mg capsule 00 (three) Medica l times Branch daily as needed for Cough. benzonatate 2020-0 Yes [id number] 100mg Take 1 Univers (TESSALON 6-19 capsule by ity of PERLES) 100 00:00: mouth 3 Ben as mg capsule 00 (three) Medica l times Branch daily as needed for Cough. benzonatate 2020-0 Yes [id number] 100mg Take 1 Univers (TESSALON 6-19 capsule by ity of PERLES) 100 00:00: mouth 3 Ben as mg capsule 00 (three) Medica l times Branch daily as needed for Cough. benzonatate 2020-0 Yes [id number] 100mg Take 1 Univers (TESSALON 6-19 capsule by ity of [employer]) 100 00:00: mouth 3 Ben as mg capsule 00 (three) Medica l times Branch daily as needed for Cough. benzonatate 2020-0 Yes [id number] 100mg Take 1 Univers (TESSALON 6-19 capsule by ity of [employer]) 100 00:00: mouth 3 Ben as mg capsule 00 (three) Medica l times Branch daily as needed for Cough. benzonatate 2020-0 Yes [id number] 100mg Take 1 Univers (TESSALON 6-19 capsule by ity of [employer]) 100 00:00: mouth 3 Ben as mg capsule 00 (three) Medica l times Branch daily as needed for Cough. benzonatate 2020-0 Yes [id number] 100mg Take 1 Univers (TESSALON 6-19 capsule by ity of [employer]) 100 00:00: mouth 3 Ben as mg capsule 00 (three) Medica l times Branch daily as needed for Cough. benzonatate 2020-0 Yes [id number] 100mg Take 1 Univers (TESSALON 6-19 capsule by ity of [employer]) 100 00:00: mouth 3 Ben as mg capsule 00 (three) Medica l times Branch daily as needed for Cough. ciprofloxac 2020-0 Yes [id number] 500mg Take 1 Univers in HCl 500 4-02 tablet by ity of mg tablet 00:00: mouth [place] 00 every 12 Medical (twelve) Branch hours. ciprofloxac 2020-0 2020- No [id number] 500mg Take 1 Univers in HCl 500 [...] Source Body height 2021-04-17 00:12:00 167.6 cm [facility] Body weight 2021-04-17 00:12:00 88.451 kg [facility] BMI 2021-04-17 00:12:00 31.47 kg/m2 [facility] Systolic blood 2021-01-21 19:41:00 98 mm[Hg] Univer sity of pressure [facility] Diastolic blood 2021-01-21 19:41:00 60 mm[Hg] [facility] Heart rate 2021-01-21 19:41:00 68 /min [facility] Body height 2021-01-21 19:41:00 167.6 cm [facility] Body weight 2021-01-21 19:41:00 87.998 kg [facility] BMI 2021-01-21 19:41:00 31.31 kg/m2 [facility] Oxygen saturation in 2021-01-21 19:41:00 97 /min University of Arterial blood by [facility] Pulse oximetry Branch Systolic blood 2020-10-13 23:43:00 129 mm[Hg] Univer sity of pressure [place] [facility] Diastolic blood 2020-10-13 23:43:00 85 mm[Hg] Unive rsity of pressure [place] [facility] Heart rate 2020-10-13 23:43:00 75 /min Universi ty of [place] [facility] Body temperature 2020-10-13 23:43:00 37.28 Chantel Univ ersity of [place] [facility] Respiratory rate 2020-10-13 23:43:00 16 /min Univ ersity of [place] [facility] Body height 2020-10-13 23:43:00 167.6 cm Universi ty of [place] [facility] Body weight 2020-10-13 23:43:00 87.091 kg Universi ty of [place] [facility] BMI 2020-10-13 23:43:00 30.99 kg/m2 Universi ty of [facility] Oxygen saturation in 2020-10-13 23:43:00 98 /min University of Arterial blood by [facility] Pulse oximetry Branch Systolic blood 2020-03-15 14:56:00 125 mm[Hg] Univer sity of pressure [place] [facility] Diastolic blood 2020-03-15 14:56:00 85 mm[Hg] Unive rsity of pressure [place] [facility] Heart rate 2020-03-15 14:55:00 86 /min Universi ty of [place] [facility] Body weight 2020-03-15 14:55:00 87.091 kg Universi ty of [place] [facility] BMI 2020-03-15 14:55:00 30.99 kg/m2 Universi ty of [place] [facility] Systolic blood 2020-03-08 15:15:00 117 mm[Hg] Univer sity of pressure [place] [facility] Diastolic blood 2020-03-08 15:15:00 71 mm[Hg] Unive rsity of pressure [place] [facility] Heart rate 2020-03-08 15:15:00 88 /min Universi ty of [place] [facility] Body temperature 2020-03-08 15:15:00 36.94 Chantel Univ ersity of [place] [facility] Respiratory rate 2020-03-08 15:15:00 20 /min Univ ersity of [place] [facility] Body weight 2020-03-08 15:15:00 87.091 kg Universi ty of [place] [facility] BMI 2020-03-08 15:15:00 30.99 kg/m2 Universi ty of [place] [facility] Oxygen saturation in 2020-03-08 15:15:00 98 /min University of Arterial blood by [facility] Pulse oximetry Branch Systolic blood 2020-02-24 03:08:20 141 mm[Hg] Univer sity of pressure [facility] Branch Diastolic blood 2020-02-24 03:08:20 86 mm[Hg] Unive rsity of pressure [facility] Body temperature 2020-02-24 03:08:20 36.61 Chantel Univ ersity of [place] [facility] Respiratory rate 2020-02-24 03:08:20 20 /min Univ ersity of [place] [facility] Heart rate 2020-02-24 02:50:00 84 /min Universi ty of [place] [facility] Body height 2020-02-24 02:50:00 167.6 cm Universi ty of [place] [facility] Body weight 2020-02-24 02:50:00 87.091 kg Universi ty of [place] [facility] BMI 2020-02-24 02:50:00 30.99 kg/m2 Universi ty of [place] [facility] Oxygen saturation in 2020-02-24 02:50:00 98 /min University of Arterial blood by [facility] Pulse oximetry Branch Systolic blood 2020-02-24 03:08:20 141 mm[Hg] Univer sity of pressure [facility] Branch Diastolic blood 2020-02-24 03:08:20 86 mm[Hg] Unive rsity of pressure [facility] Body temperature 2020-02-24 03:08:20 36.61 Chantel Univ ersity of [facility] Branch Respiratory rate 2020-02-24 03:08:20 20 /min Univ ersity of [place] [facility] Heart rate 2020-02-24 02:50:00 84 /min Universi ty of [place] [facility] Body height 2020-02-24 02:50:00 167.6 cm Universi ty of [place] [facility] Body weight 2020-02-24 02:50:00 87.091 kg Universi ty of [place] [facility] BMI 2020-02-24 02:50:00 30.99 kg/m2 Universi ty of [place] [facility] Oxygen saturation in 2020-02-24 02:50:00 98 /min University of Arterial blood by [facility] Pulse oximetry Branch Procedures Procedure Date / Time Performed Performing Clinician [facility] e CONSENT/REFUSAL FOR 2021-04-17 00:06:26 [facility] Unassigned, [facility] Name Medical Branch TREATMENT ASSIGNMENT OF BENEFITS 2021-04-17 00:06:10 Doctor Unassigned, No [facility] Medical Branch CT HEAD WO CONTRAST 2021-01-30 17:52:40 Jhon Espinosa [facility] 2021-01-30 05:01:00 Doctor Unassigned, No [facility] REC[facility]DS Name Medical Branch COGNITIVE ASSESSMENT 2021-01-21 05:01:00 Doctor Unassigned, No [facility] XR HIPS 2 VW RIGHT 2020-03-22 20:39:12 Brennon Meier [facility] Medical Branch XR SHOULDER 2+ VW 2020-02-24 03:24:50 Jax Mathew [facility] Medical Branch XR CHEST 1 VW 2020-02-24 03:24:35 Jax Mathew [facility] [place] [facility] NOTICE OF PRIVACY 2020-02-24 02:42:51 Doctor Unassigned, No [facility] Name Medical Branch CONSENT/REFUSAL FOR 2020-02-24 02:42:30 Doctor Unassigned, No [facility] AND [facility] Medical Branch TREATMENT Encounters Start End Encounter Admission Attending Care Care Encounter Source Date/Time Date/Time Type Type Clinicians Facility Department ID 2022-01-17 [id number] [place] 01:[place]:20 CHARLES [id number] [facility] 2022-01-13 Outpatient [facility] [id number] [place] 13:41:15 CHARLES [id number] [facility] 2022-01-01 Outpatient [facility] [id number] [place] 10:23:26 [id number] [facility] 2021-12-31 Outpatient [facility] [id number] [place] 13:43:43 [id number] [facility] 2021-12-29 Outpatient [facility] [id number] [place] 11:54:51 CHARLES [id number] [facility] 2022-01-26 2022-01-26 Telephone SUMAYA Razo 6410 1.2.840.114 [id number] [place] 00:00:00 00:00:[address] [id number] Health [id number] [id number] 2021-12-26 2021-12-26 Telephone SUMAYA Gutierrez 6410 1.2.840.114 [id number] [place] 00:00:00 00:00:[address] [id number] Health [id number] [id number] 2021-12-17 2021-12-17 Outpatient KLUCCOLETTE, [facility] [place] 00:00:00 00:00:00 TESSA 155 Method i 2021-12-12 2021-12-12 Outpatient STEPHEN, [facility] [place] 00:00:00 00:00:00 TESSA 163 Method i 2021-11-25 2021-11-25 Outpatient R AUNG SHARIF [facility] [id number] Univers 15:00:00 15:00:00 AUNG SHARIF [id number] [facility] 2021-11-25 2021-11-25 Outpatient Travis SHARIFAUGN [facility] [id number] Univers 15:00:00 15:00:00 AUNG SHARIF [facility] 2021-11-17 2021-11-17 Outpatient KAILEYKAPIL, [facility] [place] 00:00:00 00:00:00 TESSA 361 Method i 2021-11-17 2021-11-17 Outpatient STEPHEN, [facility] [place] 00:00:00 00:00:00 TESSA 490 Method i 2021-11-17 2021-11-17 Outpatient KLUCMIRIAM, [facility] [place] 00:00:00 00:00:00 TESSA 615 Method i 2021-11-17 2021-11-17 Outpatient STEPHEN, [facility] [place] 00:00:00 00:00:00 TESSA 725 Method i 2021-11-17 2021-11-17 Outpatient ARICUCMIRIAM, [facility] [place] 00:00:00 00:00:00 TESSA 836 Method i 2021-11-17 2021-11-17 Outpatient STEPHEN [facility] [place] 00:00:00 00:00:00 TESSA 094 Method i 2021-11-17 2021-11-17 Outpatient STEPHEN [facility] [place] 00:00:00 00:00:00 TESSA 227 Method i 2021-04-16 2021-04-16 Laboratory Lab, [facility] Fam Pob I [facility] 1.2. 840.114 [id number] Univers 19:39:44 19:55:40 Only Ebilюлия [facility] [id number] ity of [place] [id number] Ben as Professio [id number] [address] Office [facility] 2021-04-16 2021-04-16 Outpatient R MARCELLE [facility] [id number] Univers 19:40:00 19:40:00 CESAR [facility] 2021-04-16 2021-04-16 Urgent Lab, [facility] Fam Pob I [facility] 1.2.840 .114 [id number] Univers 19:00:00 19:20:[address] [facility] [id number]. 10 ity of [place] [id number] Ben as Professio [id number] [address] Office [facility] 2021-04-16 2021-04-16 Outpatient [facility] [id number] Univers 19:00:00 19:00:00 [id number] ity of [facility] 2021-04-16 2021-04-16 Outpatient R YESSICA [facility] [id number] Univers 19:00:00 19:00:00 ALICIA [facility] 2021-04-16 2021-04-16 Orders Doctor PATTERSON 1.2.840.114 [id number] Univers 00:00:00 00:00:00 Only Unassigned, FELICIANO [id number] ity of [facility] 4.2.7.2.686 Ben as [id number] [address] 2021-01-30 2021-01-30 Hospital Francisca [facility] 1.2.726.228 [id number] Univers 12:34:50 23:59:00 Encounter Jhon [place] [id number] ity [facility] 4.2.7.2.686 [facility] [id number] [facility] 801 Branch 2021-01-30 2021-01-30 Outpatient Travis ESPINOSA JHON [facility] [id number] Univers 00:00:00 00:00:00 JHON ESPINOSA [id number] ity [facility] 2021-01-30 2021-01-30 Outpatient Travis ESPINOSAJHON [facility] [id number] Univers 00:00:00 00:00:00 [facility] 2021-01-30 2021-01-30 Orders Doctor YESENIA 1.2.840.114 [id number] Univers 00:00:00 00:00:00 Only UnassignedFELICIANO [id number] ity [facility] 4.2.7.2.686 [facility] [id number] [facility] [address] [place] 2021-01-21 2021-01-21 Office Francisca [facility] 1.2.840.114 [id number] Univers 14:24:48 16:02:51 Visit Jhon [place] 350.1.13.10 ity [facility] 4.2.7.2.686 [facility] [id number] [facility] 092 [facility] 2021-01-21 2021-01-21 Outpatient JHON ASHFORD [facility] [id number] Univers 14:20:00 14:20:00 JHON ESPINOSA [id number] ity [facility] 2021-01-21 2021-01-21 Outpatient JHON ASHFORD [facility] [id number] Univers 14:20:00 14:20:00 [facility] 2021-01-21 2021-01-21 Orders Doctor PATTERSON 1.2.840.114 [id number] Univers 00:00:00 00:00:00 Only UnassignedFELICIANO 350.1.13.10 ity [facility] 4.2.7.2.686 Ben as [phone] [facility] 009 Branch 2020-11-30 2020-11-30 Patient Nicolas [facility] 1.2.840.114 [id number] Univers 00:00:00 00:00:00 Outreach Payam PRIMARY [id number] i ty of [facility] 4.2.7.2.686 [place] [id number] Mi dical 388 Branch 2020-10-13 2020-10-13 Urgent Provider, [facility] 1.2.840.114 [id number] Univers 17:26:40 18:38:45 Care Claudette Narayan [facility] [id number] ity of [place] 4.2.7.2.686 Ben as Professio [phone] Mi dical nal 044 Branch Office Building One 2020-10-13 2020-10-13 Outpatient R [facility] [id number] Univers 18:20:00 18:20:00 [id number] [facility] 2020-10-13 2020-10-13 Outpatient R RADHA [facility] [id number] Univers 18:20:00 18:20:00 [facility]UD[facility] 2020-03-22 2020-03-22 [facility] 1.2.840.114 [id number] Univers 15:25:00 23:59:00 Encounter Brennon [place] [id number] ity [place] 4[place]2.7.2.686 [place] [id number] [facility] 807 Branch 2020-03-22 2020-03-22 [facility] [id number] Univers 15:30:00 15:30:00 BRENNON Gonzales03 [facility] 2020-03-22 2020-03-22 Outpatient [facility] [id number] Univers 15:30:00 15:30:00 BRENNON [facility] 2020-03-15 2020-03-15 [facility] 1.2.840.114 [id number] Univers 09:47:45 10:02:45 Visit Brennon Simmons [id number] it y of Surgical 4.2.7.2.686 Ben as Specialti [id number] Me dical es 198 [facility] 2020-03-15 2020-03-15 Outpatient Travis HARDEEP, [facility] [id number] Univers 09:45:00 09:45:00 BRENNON [id number] ity of [facility] 2020-03-15 2020-03-15 Outpatient Travis HARDEEP [facility] [id number] Univers 09:45:00 09:45:00 BRENNON ity of [facility] 2020-03-14 2020-03-14 Outpatient R MARTÍNEZ, [facility] [id number] Univers 14:30:00 14:30:00 KATHY [id number] ity of [facility] 2020-03-14 2020-03-14 Outpatient R MARTÍNEZ, [facility] [id number] Univers 14:30:00 14:30:00 [facility] 2020-03-08 2020-03-08 Urgent Pob1, Acute Care Clinic [facility] 1. .840.114 [id number] Univers 09:57:31 10:17:31 Care Oneil [facility] [id number] ity of [place] 4.2.7.2.686 Ben as Professio [phone] Me dical nal 044 Branch Office Building One 2020-03-08 2020-03-08 Outpatient Travis LOPEZ [facility] [id number] Univers 09:40:00 09:40:00 KEVON zendejasy of [facility] 2020-02-23 2020-02-23 Emergency X Jax MATHEW [facility] ERT [id number] Univers 21:52:04 23:38:00 ity of [facility] 2020-02-23 2020-02-23 Emergency Jax Mathew [facility] 1.2.840.114 [id number] Univers 21:52:04 23:38:00 Nathen [place] [id number] i ty of [place] 4.2.7.2.686 [place] [id number] [facility] 084 [place] 2020-02-23 2020-02-23 Emergency Jax Mathew [facility] 1.2.840.114 [id number] 21:52:04 23:38:00 Nathen [place] 350.1.13.10 [place] 4.2.7.2.686 [place] [id number] [id number] Results Test Description Test Time Test Comments Results Result Comments Source SARS-CoV-2 (COVID-19) RNA [Presence] in Respiratory sp ecimen by 2021-12-12 18:56:42 MARCELL with probe detection Test Item Value Reference Range Interpretation Comme nts SARS-CoV-2 (COVID-19) RNA [Presence] in Respiratory specimen by Not detected MARCELL with probe detection (test code = 34730-1) Whether patient is employed in a healthcare setting (test code = Un known 29843-3) Whether the patient has symptoms related to condition of interest U nknown (test code = 73848-5) Whether the patient was hospitalized for condition of interest Unkn own (test code = 35164-5) Whether the patient was admitted to intensive care unit (ICU) for U nknown condition of interest (test code = 63980-0) Whether patient resides in a congregate care setting (test code = U nknown 33029-1) status (test code = 42016-3) Unknown Date and time of symptom onset (test code = 58098-6) Unknown CT HEAD WO [id number] 18:11:31 No acute intracranial abnormality.EXAM: CT HEAD [...] skull base are unremarkable.IMPRESSIONNo acute intracranial abnormality. [facility] VW [id number] 20:54:22 Osteoarthrosis EXAM: Right hip 2 views HISTORY: Hip pain TECHNIQUE:AP and frog- leg views of the right hip are obtained. FINDINGS:No acute fracture or dislocation is seen. Changes of degenerativejoint disease are seen in the hip joint in the form of sclerosis of theacetabular roof and osteophyte formation. No bone lesion is noted. Shape ofthe femoral head is preserved. [facility], Radiant [facility] 03/22/2020 3:55 PM CDTEXAM: Right hip 2 viewsHISTORY: Hip painTECHNIQUE:AP and frog-leg views of the right hip are obtained.FINDINGS:No acute fracture or dislocation is seen. Changes of degenerativejoint disease are seen in the hip joint in the form of sclerosis of theacetabular roof and osteophyteformation. No bone lesion is noted. Shape ofthe femoral head is preserved.IMPRESSIONOsteoarthrosisUnMemorial Herm[facility] HospitalXR CHEST 1 [id number] 03:53:35 Right midlung linear atelectasis. Preliminary Report [...] this study and agree with theabove report. [facility]
[2022-02-06 23:21] LABS: Absolute Lymphocytes (CBC) 1.7 K/uL (0.7-4.9); Hematocrit 41.9 % (36.0-45.0); Lymphocytes % 22.5 % (15.3-44.8); MPV 7.5 fL (7.6-11.3); RBC Red Blood Cell Count 4.69 M/uL (3.86-4.86)
[2022-02-06] MEDS ORDERED: ONDANSETRON 4 MG/2 ML VIAL ONE (23:24)
[2022-02-06] MEDS ORDERED: NA CHLORIDE 0.9% 1,000 ML ONE (23:24)
[2022-02-06] MEDS ORDERED: HYDROMORPHONE HCL 1 MG/ML INJ ONE (23:24)
[2022-02-06 23:38] LABS: Albumin 4.2 g/dL (3.4-5.0); Bilirubin Total 0.7 mg/dL (0.2-1.0); Potassium 3.1 mmol/L (3.5-5.1); Protein, Total 8.1 g/dL (6.4-8.2)
[2022-02-07] MEDS ORDERED: PROMETHAZINE INJ 25 MG/ML AMP ONE (00:13)
[2022-02-07] MEDS ORDERED: HYDROMORPHONE HCL 1 MG/ML INJ ONE (00:13)
[2022-02-07] MEDS ORDERED: NS KCL 20MEQ 1,000 ML IV ONE (00:13)
[2022-02-07] MEDS ORDERED: NA CHLORIDE 0.9% 50 ML ONE (00:14)
--- NOTE | 2022-02-07 01:27 | ER ---
Nurse's Notes [facility] Name: Shelli Fonseca Age: 56 yrs Sex: Female : 1965 Arrival Date: 02/06/2022 Time: 19:59 Bed 8 Private MD: Diagnosis: Chronic pain syndrome;Vomiting;Hypokalemia Presentation: 02/06 20:00 Chief complaint: EMS states: "Her pain pump isn't working and she isnt able to get pain tw5 medication since Wednesday supposedly. She has a Cath in the left side of her brain 90% blocked.". Onset of symptoms is unknown. 20:00 Method Of Arrival: EMS: [facility] tw5 20:00 Acuity: CLEVE 3 tw5 21:41 Chief complaint: Patient states: "I went to have my pain pump refilled on Wednesday and tw that night something went wrong. I noticed something . I called the doctor and he told me to come in Wednesday. My pump is simply not working. She was suppose to call in some Dilaudid and I didn't get any medication called in. I am miserable.". Coronavirus screen: Vaccine status: Patient reports being unvaccinated. Ebola Screen: Patient negative for fever greater than or equal to 101.5 degrees Fahrenheit, and additional compatible Ebola Virus Disease symptoms Patient denies exposure to infectious person. Patient denies travel to an Ebola-affected area in the 21 days before illness onset. Initial Sepsis Screen: Does the patient meet any 2 criteria? No. Patient's initial sepsis screen is negative. Does the patient have a suspected source of infection? No. Patient's initial sepsis screen is negative. Risk Assessment: Do you want to hurt yourself or someone else? Patient reports no desire to harm self or others. Triage Assessment: 21:44 General: Appears uncomfortable, Behavior is agitated. Pain: Pain currently is 10 out of tw5 10 on a pain scale. Historical: - Allergies: 21:44 Codeine; tw5 21:44 Sulfa (Sulfonamide Antibiotics); tw5 - PMHx: 21:44 Fibromyalgia; Hypertension; Hypothyroidism; RA; skin cancer; ulcertive colitis; CVA; tw5 - Immunization history:: Flu vaccine is not up to date. - Social history:: Smoking status: Patient reports the use of cigarette tobacco products, smokes one-half pack cigarettes per day. Screenin:44 Abuse screen: Denies threats or abuse. Denies injuries from another. Nutritional tw5 screening:. 23:14 Tuberculosis screening: No symptoms or risk factors identified. Fall Risk None sm5 identified. Assessment: 23:13 General: Appears uncomfortable, Behavior is cooperative. Pain: Complains of pain in sm5 generalized. Neuro: No deficits noted. Solorzano Agitation-Sedation Scale (RASS): 0 - Alert and Calm Level of Consciousness is awake, alert, obeys commands, Oriented to person, place, time, situation. Cardiovascular: No deficits noted. Capillary refill < 3 seconds Patient's skin is warm and dry. Respiratory: No deficits noted. Airway is patent Trachea midline Respiratory effort is even, unlabored. GI: No deficits noted. 02/07 01:08 Reassessment: No changes from previously documented assessment. Patient and/or family sm5 updated on plan of care and expected duration. Pain level reassessed. Patient is alert, oriented x 3, equal unlabored respirations, skin warm/dry/pink. 02:41 Reassessment: No changes from previously documented assessment. Patient and/or family sm5 updated on plan of care and expected duration. Pain level reassessed. Vital Signs: 02/06 20:00 BP 173 / 99; Pulse 65; Resp 18; Temp 98.2; Pulse Ox 100% on R/A; tw5 21:41 BP 149 / 93; Pulse 80; Resp 18; Temp 98.6(O); Pulse Ox 100% on R/A; Weight 92.99 kg; tw5 Height 5 ft. 6 in. (167.64 cm); Pain 10/10; 02/07 00:53 BP 199 / 92; Pulse 45; Resp 20; Pulse Ox 100% on R/A; sm5 01:08 BP 170 / 88; Pulse 46; Resp 19; Pulse Ox 98% on R/A; sm5 02:41 BP 144 / 76; Pulse 48; Resp 18; Pulse Ox 98% on R/A; sm5 02/06 21:41 Body Mass Index 33.09 (92.99 kg, 167.64 cm) tw5 ED Course: 02/06 19:59 Patient arrived in ED. tw5 20:02 Triage completed. tw5 21:44 Arm band placed on right wrist. tw5 22:33 Mukul Cox MD is Attending Physician. marty 22:43 Candice Ramachandran RN is Primary Nurse. sm5 23:12 CBC with Diff Sent. sm5 23:12 Comprehensive Metabolic Panel Sent. sm5 23:12 Lipase Sent. sm5 23:13 Inserted saline lock: 20 gauge in right forearm, using aseptic technique. Blood sm5 collected. 23:14 Patient has correct armband on for positive identification. Bed in low position. Call 5 light in reach. Side rails up X2. 02/07 01:26 Juan Alberto Peña DO is Referral Physician. [facility] 02:42 No provider procedures requiring assistance completed. IV discontinued, intact, sm5 bleeding controlled, No redness/swelling at site. Pressure dressing applied. Administered Medications: 02/06 23:26 Drug: NS 0.9% 1000 ml Route: IV; Rate: 1 bolus; Site: right forearm; 5 02/07 01:11 Follow up: IV Status: Completed infusion; IV Intake: 1000ml [facility] 02/06 23:26 Drug: Zofran (Ondansetron) 4 mg Route: IVP; Site: right forearm; 5 02/07 01:11 Follow up: Response: No adverse reaction 5 02/06 23:27 Drug: Dilaudid (HYDROmorphone) 1 mg Route: IVP; Site: right forearm; 5 02/07 01:11 Follow up: Response: No adverse reaction sm5 00:05 CANCELLED (Duplicate Order): Potassium Effervescent Tablet 50 mEq PO once; dissolve in marty 4 ounces of water or juice 00:16 Drug: Dilaudid (HYDROmorphone) 1 mg Route: IVP; Site: right forearm; sm5 01:11 Follow up: Response: No adverse reaction 5 00:16 Drug: Phenergan (promethazine) 12.5 mg Route: IVP; Site: right forearm; sm5 01:10 Follow up: Response: No adverse reaction 5 00:53 Drug: NS 0.9% with KCl 20 mEq/L 1000 ml Route: IV; Rate: 999 units/hr; Site: right 5 forearm; 02:42 Follow up: IV Status: Completed infusion; IV Intake: 1000ml sm5 02:22 Not Given (Physician Discretion): Phenergan (promethazine) 12.5 mg IVP once sm5 Medication: 02/06 23:14 VIS not applicable for this client. sm5 Intake: 02/07 01:11 IV: 1000ml; Total: 1000ml. sm5 02:42 IV: 1000ml; Total: 2000ml. sm5 Outcome: 01:26 Discharge ordered by . marty 02:42 Discharged to home ambulatory. 5 02:42 Condition: stable 02:42 Discharge instructions given to patient, Instructed on discharge instructions, follow up and referral plans. medication usage, Demonstrated understanding of instructions, follow-up care, medications, Prescriptions given X 3. 02:43 Patient left the ED. 5 Signatures: Mukul Cox MD MD cha Wood, Tiffany tw5 Candice Ramachandran, RN RN 5
--- NOTE | 2022-02-07 01:27 | EDPHYS ---
Physician Documentation [facility] Name: Shelli Fonseca Age: 56 yrs Sex: Female : 1965 Arrival Date: 02/06/2022 Time: 19:59 Bed 8 Private MD: ED Physician Mukul Cox HPI: 02/06 22:48 This 56 yrs old Female presents to ER via EMS with complaints of Pain. marty 22:48 The patient presents to the emergency department with nausea, vomiting, that is marty intermittent, described as bilious. Onset: The symptoms/episode began/occurred 3 day(s) ago. Possible causes: unknown. The symptoms are aggravated by nothing. The symptoms are alleviated by nothing. PAIN PUMP NOT WORKING, PAIM ALL OVER. Associated signs and symptoms: The patient has no apparent associated signs or symptoms. Severity of symptoms: At their worst the symptoms were mild in the emergency department the symptoms are unchanged. The patient has experienced similar episodes in the past, several times. Historical: - Allergies: 21:44 Codeine; tw5 21:44 Sulfa (Sulfonamide Antibiotics); tw5 - PMHx: 21:44 Fibromyalgia; Hypertension; Hypothyroidism; RA; skin cancer; ulcertive colitis; CVA; tw5 - Immunization history:: Flu vaccine is not up to date. - Social history:: Smoking status: Patient reports the use of cigarette tobacco products, smokes one-half pack cigarettes per day. ROS: 22:50 Constitutional: Negative for fever, chills, and weight loss, Eyes: Negative for injury, marty pain, redness, and discharge, ENT: Negative for injury, pain, and discharge, Neck: Negative for injury, pain, and swelling, Cardiovascular: Negative for chest pain, palpitations, and edema, Respiratory: Negative for shortness of breath, cough, wheezing, and pleuritic chest pain, Back: Negative for injury and pain, : Negative for injury, bleeding, discharge, and swelling, MS/Extremity: Negative for injury and deformity, Skin: Negative for injury, rash, and discoloration, Neuro: Negative for headache, weakness, numbness, tingling, and seizure, Psych: Negative for depression, anxiety, suicide ideation, homicidal ideation, and hallucinations, Allergy/Immunology: Negative for hives, rash, and allergies, Endocrine: Negative for neck swelling, polydipsia, polyuria, polyphagia, and marked weight changes, Hematologic/Lymphatic: Negative for swollen nodes, abnormal bleeding, and unusual bruising. 22:50 Abdomen/GI: Positive for nausea and vomiting, nausea, vomiting, and diarrhea, abdominal cramps. Exam: 22:50 Constitutional: This is a well developed, well nourished patient who is awake, alert, marty and in no acute distress. Head/Face: Normocephalic, atraumatic. Eyes: Pupils equal round and reactive to light, extra-ocular motions intact. Lids and lashes normal. Conjunctiva and sclera are non-icteric and not injected. Cornea within normal limits. Periorbital areas with no swelling, redness, or edema. ENT: Nares patent. No nasal discharge, no septal abnormalities noted. Tympanic membranes are normal and external auditory canals are clear. Oropharynx with no redness, swelling, or masses, exudates, or evidence of obstruction, uvula midline. Mucous membranes moist. Neck: Trachea midline, no thyromegaly or masses palpated, and no cervical lymphadenopathy. Supple, full range of motion without nuchal rigidity, or vertebral point tenderness. No Meningismus. Chest/axilla: Normal chest wall appearance and motion. Nontender with no deformity. No lesions are appreciated. Cardiovascular: Regular rate and rhythm with a normal S1 and S2. No gallops, murmurs, or rubs. Normal PMI, no JVD. No pulse deficits. Respiratory: Lungs have equal breath sounds bilaterally, clear to auscultation and percussion. No rales, rhonchi or wheezes noted. No increased work of breathing, no retractions or nasal flaring. Abdomen/GI: Soft, non-tender, with normal bowel sounds. No distension or tympany. No guarding or rebound. No evidence of tenderness throughout. Back: No spinal tenderness. No costovertebral tenderness. Full range of motion. Female : Normal external genitalia. Skin: Warm, dry with normal turgor. Normal color with no rashes, no lesions, and no evidence of cellulitis. MS/ Extremity: Pulses equal, no cyanosis. Neurovascular intact. Full, normal range of motion. Neuro: Awake and alert, GCS 15, oriented to person, place, time, and situation. Cranial nerves II-XII grossly intact. Motor strength 5/5 in all extremities. Sensory grossly intact. Cerebellar exam normal. Normal gait. Psych: Awake, alert, with orientation to person, place and time. Behavior, mood, and affect are within normal limits. Vital Signs: 20:00 BP 173 / 99; Pulse 65; Resp 18; Temp 98.2; Pulse Ox 100% on R/A; tw5 21:41 BP 149 / 93; Pulse 80; Resp 18; Temp 98.6(O); Pulse Ox 100% on R/A; Weight 92.99 kg; tw5 Height 5 ft. 6 in. (167.64 cm); Pain 06/29; 02/07 00:53 BP 199 / 92; Pulse 45; Resp 20; Pulse Ox 100% on R/A; sm5 01:08 BP 170 / 88; Pulse 46; Resp 19; Pulse Ox 98% on R/A; sm5 02:41 BP 144 / 76; Pulse 48; Resp 18; Pulse Ox 98% on R/A; sm5 02/06 21:41 Body Mass Index 33.09 (92.99 kg, 167.64 cm) tw5 MDM: 02/06 22:33 Patient medically screened. [facility] 22:51 Differential diagnosis: Nonspecific abd pain, gastritis, viral gastroenteritis, marty gastroenteritis. Data reviewed: vital signs, nurses notes, lab test result(s). Data interpreted: monitor technician: rate is 80 beats/min, rhythm is regular, Pulse oximetry: on room air is 100 %. Test interpretation: by ED physician or midlevel provider:. Counseling: I had a detailed discussion with the patient and/or guardian regarding: the historical points, exam findings, and any diagnostic results supporting the discharge/admit diagnosis, lab results, the need for outpatient follow up, for definitive care, a family practitioner, a pipe bowl paint trimmer. 02/06 22:47 Order name: CBC with Diff; Complete Time: 23:55 [facility] 02/06 22:47 Order name: Comprehensive Metabolic Panel; Complete Time: 23:55 [facility] 02/06 22:50 Order name: Lipase; Complete Time: 23:55 [facility] 02/07 02:34 Order name: Urine Dipstick-Ancillary EDMS 02/06 22:47 Order name: Urine Dipstick-Ancillary (obtain specimen); Complete Time: 02:36 [facility] 02/06 23:57 Order name: PO challenge: GATORADE; Complete Time: 02:02 marty 02/07 01:23 Order name: Sage. Order: GET UA; Complete Time: 02:35 marty Administered Medications: 23:26 Drug: NS 0.9% 1000 ml Route: IV; Rate: 1 bolus; Site: right forearm; 5 02/07 01:11 Follow up: IV Status: Completed infusion; IV Intake: 1000ml [facility] 02/06 23:26 Drug: Zofran (Ondansetron) 4 mg Route: IVP; Site: right forearm; 5 02/07 01:11 Follow up: Response: No adverse reaction [facility] 02/06 23:27 Drug: Dilaudid (HYDROmorphone) 1 mg Route: IVP; Site: right forearm; [facility] 02/07 01:11 Follow up: Response: No adverse reaction 5 00:05 CANCELLED (Duplicate Order): Potassium Effervescent Tablet 50 mEq PO once; dissolve in [facility] 4 ounces of water or juice 00:16 Drug: Dilaudid (HYDROmorphone) 1 mg Route: IVP; Site: right forearm; 5 01:11 Follow up: Response: No adverse reaction 5 00:16 Drug: Phenergan (promethazine) 12.5 mg Route: IVP; Site: right forearm; 5 01:10 Follow up: Response: No adverse reaction [facility] 00:53 Drug: NS 0.9% with KCl 20 mEq/L 1000 ml Route: IV; Rate: 999 units/hr; Site: right sm5 forearm; 02:42 Follow up: IV Status: Completed infusion; IV Intake: 1000ml [facility] 02:22 Not Given (Physician Discretion): Phenergan (promethazine) 12.5 mg IVP once 5 Disposition Summary: 02/07/22 01:26 Discharge Ordered Location: Home marty Problem: new marty Symptoms: have improved marty Condition: Stable marty Diagnosis - Chronic pain syndrome marty - Vomiting marty - Hypokalemia marty Followup: marty - With: Private Physician - When: 2 - 3 days - Reason: Recheck today's complaints, Continuance of care, Re-evaluation by your physician Followup: marty - With: - When: 2 - 3 days - Reason: Recheck today's complaints, Re-evaluation by your physician Discharge Instructions: - Discharge Summary Sheet marty - Chronic Back Pain marty - Chronic Pain, Adult marty - Nausea and Vomiting, Adult marty - Nausea and Vomiting, Adult, [id number] [facility] Forms: - Medication Reconciliation Form marty - Thank You Letter marty - Antibiotic Education marty - Prescription Opioid Use [facility] Prescriptions: - Zofran 4 mg Oral Tablet - take 1 tablet by ORAL route every 12 hours As needed; 20 tablet; Refills: 0, [facility] Product Selection Permitted - promethazine 25 mg Oral Tablet - take 1 tablet by ORAL route every 6 hours As needed; 20 tablet; Refills: 0, [facility] Product Selection Permitted - Tramadol 50 mg Oral Tablet - take 1 tablet by ORAL route every 8 hours as needed; 20 tablet; Refills: 0, [facility] Product Selection Permitted Signatures: Dispatcher [employer] EDMukul Hodges MD MD cha Wood, Tiffany 5 Candice Ramachandran RN RN sm5 Corrections: (The following items were deleted from the chart) 00:05 05/20 23:56 Potassium Effervescent Tablet 50 mEq PO once; dissolve in 4 ounces of water marty or juice ordered. marty
[2022-02-07 02:34] LABS: Urine Blood Trace-lysed (Negative); Urine Glucose Negative (Negative); Urine Protein Negative (Negative); Urine Specific Gravity 1.015 (1.005-1.030)
[2022-02-07 02:51] VITALS: TEMP 98.6
[2022-02-07 02:58] VITALS: O2SAT 98
[2022-02-07 02:59] VITALS: BP 144/76
== END 2022-02-07 02:43 | disposition home or self-care (01) ==
LOC: ER 19:53
DX: G89.4 Chronic pain syndrome (principal); E87.6 Hypokalemia; R11.10 Vomiting, unspecified; I10 Essential (primary) hypertension; Z85.828 Personal history of other malignant neoplasm of skin; Z88.2 Allergy status to sulfonamides; Z88.5 Allergy status to narcotic agent
CPT/HCPCS: 96361; 85025; 36415; 81003; 83690; 80053; 96375; 96374; 99284; J2550; J1170 ×2; J7030; J2405; J3480

== ENCOUNTER 2024-12-26 19:01 | Emergency (ER) | payer OTHER ==
[2024-12-26] MEDS ORDERED: NA CHLORIDE 0.9% 1,000 ML ONE (20:36)
[2024-12-26 20:51] LABS: Absolute Basophils 0.1 K/uL (0-0.5); Absolute Eosinophils 0.2 K/uL (0-0.5); Absolute Lymphocytes (CBC) 2.6 K/uL (0.7-4.9); Absolute Monocytes 0.6 K/uL (0.1-1.3); Absolute Neutrophil 6.1 K/uL (1.8-8.0); Basophils % 0.6 % (0-1.3); Eosinophils % 1.9 % (0-4.4); Hemoglobin 13.7 g/dL (12.0-15.0); Lymphocytes % 27.4 % (15.3-44.8); MCH 32.5 pg (27.0-35.0); MCHC 35.3 g/dL (32.0-36.0); MCV 92.2 fL (80-100); MPV 7.9 fL (7.6-11.3); Monocytes % 6.7 % (3.3-12.3); Neutrophils % 63.4 % (41.7-73.7); Nucleated Red Blood Cells % 0.4 % (0-0); Platelets 169 thou/uL (152-406); RBC Red Blood Cell Count 4.22 M/uL (3.86-4.86); Red Cell Distribution Width 13.4 % (12.1-15.2)
[2024-12-26 21:10] LABS: Albumin 3.5 g/dL (3.4-5.0); Albumin/Globulin Ratio 0.9 (1.1-1.8); Anion Gap 10.2 mEq/L (5.0-15.0); Bilirubin Total 0.4 mg/dL (0.2-1.0); Protein, Total 7.5 g/dL (6.4-8.2)
--- NOTE | 2024-12-26 21:14 | RAD REPORT ---
EXAMINATION: CT ABDOMEN AND PELVIS WITH CONTRAST CLINICAL INDICATION: Abdominal pain TECHNIQUE: CT abdomen and pelvis was performed, after the administration of 100 cc Isovue-300.. Sagit kemal and coronal reconstructions were obtained. One or more of the following dose reduction techniques were used: Automated exposure control, adjustment of the mA and kV according to patient si ze, and iterative reconstruction. Unless otherwise specified, incidental findings do not require dedicated imaging follow-up. [id number]. Oral contrast was not given which limits evaluation of bowel and appendix. COMPARISON: .None FINDINGS: Wall of the distal esophagus appears mildly thickened Cholecystectomy. Liver, spleen, pancreas, adrenals and kidneys appear unremarkable No evidence of diverticulitis. Moderate amount of stool within the colon. Pain pump in place. Hysterectomy. No adnexal mass : IMPRESSION: Moderate amount of stool within the colon Wall of the distal esophagus appears mildly thickened. This could be secondary to incomplete distenti on or inflammation
[2024-12-26 21:18] LABS: Potassium 4.2 mEq/L (3.5-5.1)
--- NOTE | 2024-12-26 22:26 | EDPHYS ---
Physician Documentation [facility] Name: Shelli Fonseca Age: 59 yrs Sex: Female : 1965 Arrival Date: 12/26/2024 Time: 19:01 Bed 26 Private MD: ED Physician Mukul Cox HPI: 12/26 22:28 This 59 yrs old Female presents to ER via Ambulatory with complaints of Abdominal Pain. kb 22:28 Pt is a 59 year old female who presents for rectal pressure for one month. States she kb went to the PCP and was prescribed lactulose, was supposed to follow up this morning if she hadn't had a BM, but couldn't make it due to family obligation. states she came in tonight because she hasn't had a BM.. Historical: - Allergies: 19:33 Codeine; me1 19:33 Sulfa (Sulfonamide Antibiotics); me1 - PMHx: 19:33 CVA; Fibromyalgia; Hypertension; Hypothyroidism; RA; skin cancer; ulcertive colitis; me1 - PSHx: 19:33 Total abdominal hysterectomy; colon resection; Cholecystectomy; Tonsillectomy; skin me1 cancer resection; - Immunization history:: Adult Immunizations up to date. - Infectious Disease History:: Denies. - Social history:: Smoking status: Patient reports the use of cigarette tobacco products, smokes one pack cigarettes per day. ROS: 22:25 Constitutional: As per HPI kb Exam: 22:25 Constitutional: This is a well developed, well nourished patient who is awake, alert, kb and in no acute distress. Head/Face: Normocephalic, atraumatic. ENT: Moist Mucous membranes Cardiovascular: Regular rate Respiratory: Respirations even and unlabored. No increased work of breathing. Talking in full sentences Skin: Warm, dry with normal turgor. Normal color. MS/ Extremity: Pulses equal, no cyanosis. Neurovascular intact. Full, normal range of motion. Neuro: Awake and alert, GCS 15, oriented to person, place, time, and situation. 22:25 Abdomen/GI: Inspection: abdomen appears normal, Bowel sounds: normal, Palpation: soft, in all quadrants, mild abdominal tenderness, in the left lower quadrant, 22:28 Abdomen/GI: Rectal exam: is unremarkable, rectal tone normal, Stool: refused test kb hemorrhoid(s), are not appreciated, fecal impaction, is not appreciated, Vital Signs: 19:28 BP 137 / 89; Pulse 84; Resp 16; Temp 98.3; Pulse Ox 100% ; Weight 80.29 kg; Height 5 me1 ft. 6 in. ; Pain 6/10; 21:44 BP 126 / 86; Pulse 57; Resp 16; Pulse Ox 97% on R/A; jb4 23:15 BP 150 / 88; Pulse 61; Resp 16; Pulse Ox 99% on R/A; jb4 19:28 Body Mass Index 28.57 (80.29 kg, 167.64 cm) me1 19:28 Pain Scale: Adult me1 José Miguel Coma Score: 23:15 Eye Response: spontaneous(4). Motor Response: obeys commands(6). Verbal Response: jb4 oriented(5). Total: 15. MDM: 19:23 Medical Screening Exam initiated kb 22:27 Differential diagnosis: non-specific abd pain, colitis, diverticulitis, constipation, kb bowel obstruction, fecal impaction. Data reviewed: vital signs, nurses notes. Counseling: I had a detailed discussion with the patient and/or guardian regarding the historical points, exam findings, and any diagnostic results supporting the discharge/admit diagnosis, lab results, radiology results, the need for outpatient follow up, a family practitioner, to return to the emergency department if symptoms worsen or persist or if there are any questions or concerns that arise at home. 12/26 20:08 Order name: CBC with Diff; Complete Time: 20:53 kb 12/26 20:08 Order name: CMP; Complete Time: 21:21 kb 12/26 20:08 Order name: Lipase; Complete Time: 21:21 kb 12/26 20:08 Order name: CT Abd/Pelvis - IV Contrast Only; Complete Time: 21:16 kb 12/26 20:08 Order name: IV Saline Lock; Complete Time: 20:34 kb 12/26 20:08 Order name: Labs collected and sent; Complete Time: 20:34 kb Administered Medications: 20:40 Drug: NS 0.9% IV 1000 ml IV at 1 bolus Per protocol; to be given as a bolus over 60 jb4 minutes Route: IV; Rate: 1 bolus; Site: right antecubital; Disposition: 12/27 14:40 Co-signature as Attending Physician, Mukul Kenny MD I agree with the assessment and marty plan of care. Disposition Summary: 12/26/24 22:26 Discharge Ordered Notes: Location: Home kb Condition: Stable kb Diagnosis - Constipation kb Followup: kb - With: Private Physician - When: 2 - 3 days - Reason: Recheck today's complaints, Continuance of care, Re-evaluation by your physician Followup: kb - With: Emergency Department - When: As needed - Reason: Worsening of condition Discharge Instructions: - Discharge Summary Sheet kb - Constipation, Adult, [id number] kb Forms: - Medication Reconciliation Form kb - Antibiotic Education kb - Prescription Opioid Use kb - Patient Portal Instructions kb - Leadership Thank You Letter kb Signatures: Dispatcher [employer] EDMS Nany Myers, RELEASE ENGINEER-C RELEASE ENGINEER-Mukul Segovia MD MD cha Bryson, James, RN RN jb4 Nikki Phelan, RN RN me1 Corrections: (The following items were deleted from the chart) 12/26 20:08 20:08 CBC+H.LAB.BRZ ordered. EDMS EDMS 20:08 20:08 COMPREHENSIVE METABOLIC PANEL+C.LAB.BRZ ordered. EDMS EDMS 20:08 20:08 LIPASE+C.LAB.BRZ ordered. EDMS EDMS 20:08 20:08 Urinalysis+U.LAB.BRZ ordered. EDMS EDMS
--- NOTE | 2024-12-26 22:26 | ER ---
Nurse's Notes [facility] Name: Shelli Fonseca Age: 59 yrs Sex: Female : 1965 Arrival Date: 12/26/2024 Time: 19:01 Bed 26 Private MD: Diagnosis: Constipation Presentation: 12/26 19:28 Chief complaint: Patient states: c/o pressure to rectum x 1 month, was constipated x 5 me1 days and saw her Dr yesterday and was given laxatives and told to go to ER if no BM by this morning. Pain 6/10 "pressure". Reports decreased appetite and nausea. Coronavirus screen: At this time, the client does not indicate any symptoms associated with coronavirus-19. Ebola Screen: No symptoms or risks identified at this time. Initial Sepsis Screen: Does the patient meet any 2 criteria? No. Patient's initial sepsis screen is negative. Does the patient have a suspected source of infection? No. Patient's initial sepsis screen is negative. Risk Assessment: Do you want to hurt yourself or someone else? Patient reports no desire to harm self or others. Onset of symptoms is unknown. 19:28 Method Of Arrival: Ambulatory me1 19:28 Acuity: CLEVE 3 me1 Historical: - Allergies: 19:33 Codeine; me1 19:33 Sulfa (Sulfonamide Antibiotics); me1 - PMHx: 19:33 CVA; Fibromyalgia; Hypertension; Hypothyroidism; RA; skin cancer; ulcertive colitis; me1 - PSHx: 19:33 Total abdominal hysterectomy; colon resection; Cholecystectomy; Tonsillectomy; skin me1 cancer resection; - Immunization history:: Adult Immunizations up to date. - Infectious Disease History:: Denies. - Social history:: Smoking status: Patient reports the use of cigarette tobacco products, smokes one pack cigarettes per day. Screenin:15 [facility] ED Fall Risk Assessment (Adult) History of falling in the last 3 months, jb4 including since admission No falls in past 3 months (0 pts) Confusion or Disorientation No (0 pts) Intoxicated or Sedated No (0 pts) Impaired Gait No (0 pts) Mobility Assist Device Used No (0 pt) Altered Elimination No (0 pt) Score/Fall Risk Level 0 - 2 = Low Risk Oriented to surroundings, Maintained a safe environment. Abuse screen: Denies threats or abuse. Nutritional screening: No deficits noted. Tuberculosis screening: No symptoms or risk factors identified. Assessment: 19:45 General: Appears in no apparent distress. comfortable, Behavior is calm, cooperative, jb4 appropriate for age. Pain: Complains of pain in rectal pain Pain does not radiate. Pain currently is 6 out of 10 on a pain scale. Quality of pain is described as pressure. Neuro:. Cardiovascular: Patient's skin is warm and dry. Respiratory: Airway is patent Respiratory effort is even, unlabored, Respiratory pattern is regular, symmetrical. GI: Abdomen is non-distended, obese, Reports constipation, diarrhea. Derm: Skin is intact, Skin is pink, warm \\T\\ dry. 21:00 Reassessment: Patient appears in no apparent distress at this time. Patient and/or jb4 family updated on plan of care and expected duration. Pain level reassessed. Patient is alert, oriented x 3, equal unlabored respirations, skin warm/dry/pink. 22:00 Reassessment: Patient appears in no apparent distress at this time. Patient and/or jb4 family updated on plan of care and expected duration. Pain level reassessed. Patient is alert, oriented x 3, equal unlabored respirations, skin warm/dry/pink. 23:00 Reassessment: Patient appears in no apparent distress at this time. Patient and/or jb4 family updated on plan of care and expected duration. Pain level reassessed. Patient is alert, oriented x 3, equal unlabored respirations, skin warm/dry/pink. Vital Signs: 19:28 BP 137 / 89; Pulse 84; Resp 16; Temp 98.3; Pulse Ox 100% ; Weight 80.29 kg; Height 5 me1 ft. 6 in. ; Pain 6/10; 21:44 BP 126 / 86; Pulse 57; Resp 16; Pulse Ox 97% on R/A; jb4 23:15 BP 150 / 88; Pulse 61; Resp 16; Pulse Ox 99% on R/A; jb4 19:28 Body Mass Index 28.57 (80.29 kg, 167.64 cm) [facility] 19:28 Pain Scale: Adult me1 [place] Coma Score: 23:15 Eye Response: spontaneous(4). Motor Response: obeys commands(6). Verbal Response: jb4 oriented(5). Total: 15. ED Course: 19:05 Patient arrived in ED. al6 19:23 Nany Myers FNP-C is [facility]. kb 19:23 Mukul Cox MD is Attending Physician. kb 19:33 Triage completed. me1 19:33 Arm band placed on Patient placed in waiting room. me1 20:10 Radiology exam delayed due to lab results not completed at this time. (BUN/Creatinine) nj IV insertion attempt and/or patient not having appropriate IV at this time. 20:54 CT Abd/Pelvis - IV Contrast Only In Process Unspecified. EDMS 23:15 Patient has correct armband on for positive identification. Bed in low position. Call jb4 light in reach. Side rails up X 1. Provided Education on: discharge instructions. 23:15 No provider procedures requiring assistance completed. IV discontinued, intact, jb4 bleeding controlled, No redness/swelling at site. Pressure dressing applied. Administered Medications: 20:40 Drug: NS 0.9% IV 1000 ml IV at 1 bolus Per protocol; to be given as a bolus over 60 jb4 minutes Route: IV; Rate: 1 bolus; Site: right antecubital; Medication: 23:15 VIS not applicable for this client. jb4 Outcome: 22:26 Discharge ordered by . kb 23:15 Discharged to home ambulatory, with family, jb4 23:15 Condition: stable 23:15 Discharge instructions given to patient, Instructed on discharge instructions, follow up and referral plans. Demonstrated understanding of instructions, follow-up care, 23:38 Patient left the ED. ha1 Signatures: Dispatcher [employer] EDNJ Nany Myers FNP-C FNP-Viktor Masterson RN RN jb4 Sebas Leal Heidy RN RN 1 Nikki Phelan RN RN [email or web address] Angélica Melendez al6
[2024-12-27 00:30] VITALS: TEMP 98.3
[2024-12-27 00:32] VITALS: BP 126/86; O2SAT 97
== END 2024-12-26 23:38 | disposition home or self-care (01) ==
LOC: ER 19:01
DX: K59.00 Constipation, unspecified (principal); F17.210 Nicotine dependence, cigarettes, uncomplicated
CPT/HCPCS: 85025; 36415; 83690; 80053; 74177; 99284; Q9967; J7030